=== PATIENT | female | born 1970 | race African-American/Black ===

== ENCOUNTER 2016-07-25 14:07 | Inpatient (IN) | payer MEDICAID ==
[2016-07-25] MEDS ORDERED: Sodium Chloride 0.9% 10 ML Syringe FLUSH PRN (14:35)
[2016-07-25] MEDS ORDERED: Sodium Chloride 0.9% 2.5 ML Syringe FLUSH PRN (14:35)
[2016-07-25] MEDS ORDERED: Sodium Chloride 0.9% 1,000 ML IV ONE ×3 (14:38→18:46)
[2016-07-25] MEDS ORDERED: Ondansetron 4 MG/2 ML SDV IVPUSH ONE ×2 (14:38→17:05)
--- NOTE | 2016-07-25 14:47 | EDM.PDOC ---
ED HPI GENERAL MEDICAL PROBLEM - General Chief Complaint: Abdominal Pain Stated Complaint: ABDOMINAL PAIN Time Seen by Provider: 07/25/16 14:27 - History of Present Illness INITIAL COMMENTS - FREE TEXT/NARRATIVE: HISTORY AND PHYSICAL: History of present illness: The patient is a 45-year-old female with a known history of PTSD and a "nerve disorder" as well as anxiety but no cardiac or abdominal history that we are aware of and to also has a history of a developmental disability and presents with complaints of upper abdominal pain more on the left associated with nausea and vomiting that started yesterday and worsened today. The patient denies any chest pain or shortness of breath and feels very anxious as a result of the pain and the vomiting. She also states she has had a number of loose watery stools yesterday and today. She has not taken any [id number] medications. According to the history from family, an aunt who knows her very well via telephone, she's been off all of her home medications since December as she does not have insurance. She has not seen a provider since before December. The history is very sketchy and difficult to obtain as the patient is not the best historian nor other family members. She has not had any syncope but has felt lightheaded and is currently feeling very sweaty and nauseated. She has no limb pain no flank pain or back pain. Review of systems: As per history of present illness and below otherwise all systems reviewed and negative. Past medical history: As per history of present illness and as reviewed below otherwise noncontributory. Surgical history: As per history of present illness and as reviewed below otherwise noncontributory. Social history: No reported history of drug or alcohol abuse. Family history: As per history of present illness and as reviewed below otherwise noncontributory. Physical exam: Gen.: Well-developed well-nourished female who is speaking clearly and is visibly diaphoretic and cool to touch. Her vital signs of the note by me including a bradycardia of 40. HEENT: Atraumatic, normocephalic, pupils reactive, negative for conjunctival pallor or scleral icterus, mucous membranes tacky, throat clear, neck supple, nontender, trachea midline. Lungs: Clear to auscultation slightly diminished on the left side but no work of breathing or accessory muscle use, breath sounds equal bilaterally, chest nontender. Heart: S1S2, regular rhythm but bradycardic rate and heart sounds are very distant, no overt murmurs Abdomen: Soft, nondistended, tender in the left upper abdomen and epigastric area without rebound or guarding and bowel sounds are hypoactive. Negative for masses or hepatosplenomegaly. Negative for costovertebral tenderness. Pelvis: Stable nontender. Genitourinary: Deferred. Rectal: Deferred. Extremities: Atraumatic, negative for cords or calf pain. Neurovascular unremarkable. Neuro: Awake, alert, oriented. Cranial nerves II through XII unremarkable. Cerebellum unremarkable. Motor and sensory unremarkable throughout. Exam nonfocal. Diagnostics: EKG CBC CMP amylase lipase lactic acid troponin hCG UA chest x-ray CT scan of the abdomen and pelvis Therapeutics: IV O2 monitor IV fluids Zofran 1438: Once EKG was obtained consultation to Dr. woody factory superintendent is made and is currently at bedside at 1345 evaluating the patient. Pacer pads and placed and I will discuss with him medication for her abdominal pain and other testing further than what I have ordered above. 1450: Dr Moise was at bedside and gave a small dose of atropine and responded and is up in the 90s currently. He feels this is most likely a vagal response but he would like observation admission for this problem as I workup the abdominal pain and vomiting. He will do a formal consult for the chart 1515: Patient's current pulse is 104 blood pressure is 136/94 and she continues to have abdominal pain but is resting more comfortably. I will prescribe pain medication, morphine Please note that the patient is on her menstrual cycle which would explain the blood in her urine. Patient also tells noticing that her abdominal pain is much improved and she did not receive the morphine we will plan for admission I will discuss the case with the hospitalist 1658: Case was discussed with the hospitalist Dr. Suggs who accepts the patient for admission. The patient is also aware of testing results she still feels some nausea so I will repeat Zofran and IV fluids. We will plan on observation admission in ICU per Dr. Moise's recommendation for the bradycardia Critical care time excluding procedures: 31min Impression: Left upper abdominal pain with vomiting and diarrhea improved etiology unclear, bradycardia likely secondary to vagal response Definitive disposition and diagnosis as appropriate pending reevaluation and review of above. Left Abdomen Pain Score (Numeric/FACES): 10 - Related Data Allergies Allergy/AdvReac Type Severity Reaction Status Date / Time No Known Allergies Allergy Verified 07/25/16 15:03 Home Meds: Home Meds ARIPiprazole [Abilify] 07/25/16 [History] Albuterol/Ipratropium [DuoNeb 3.0-0.5 MG/3 ML] 07/25/16 [History] buPROPion [Wellbutrin] 07/25/16 [History] ED ROS GENERAL - Review of Systems Review Of Systems: ROS reveals no pertinent complaints other than HPI. ED EXAM, GENERAL - Physical Exam Exam: See Below (See dictation) Course - Vital Signs Last Recorded V/S: Last Vital Signs Temp 35.5 C 07/25/16 15:16 Pulse 95 07/25/16 15:16 Resp 22 H 07/25/16 15:16 BP 136/94 H 07/25/16 15:16 Pulse Ox 100 07/25/16 15:16 - Orders/Labs/Meds Orders: Active Orders 24 hr Category Date Time Status Patient Status [ADT] Stat ADT 07/25/16 17:02 Ordered Cardiac Monitoring [RC] . DIRECTED Care 07/25/16 14:34 Active Communication Order [RC] STAT Care 07/25/16 14:42 Active EKG Documentation Completion [RC] STAT Care 07/25/16 14:34 Active EKG Documentation Completion [RC] STAT Care 07/25/16 14:54 Active Notify Provider Consults [RC] ASDIRECTED Care 07/25/16 14:42 Active Oxygen Therapy, ED [RC] ASDIRECTED Care 07/25/16 14:34 Active Pulse Oximetry [RC] ASDIRECTED Care 07/25/16 14:34 Active Consult to Physician [CONS] Stat Cons 07/25/16 14:42 Active Dextrose 5%-Normal Saline @ 125 MLS/HR(1000ml) Med 07/25/16 17:15 Ordered Dextrose 5%-0.9% NaCl [Dextrose 5%-Normal Saline] 1,000 ml IV ASDIRECTED Sodium Chloride 0.9% [Normal Saline] 1,000 ml Med 07/25/16 17:00 Ordered IV STAT Sodium Chloride 0.9% [Saline Flush] Med 07/25/16 14:35 Active 10 ml FLUSH ASDIRECTED PRN Sodium Chloride 0.9% [Saline Flush] Med 07/25/16 14:35 Active 2.5 ml FLUSH ASDIRECTED PRN Saline Lock Insert [OM.PC] Stat Oth 07/25/16 14:34 Ordered Medication Orders Sodium Chloride (Normal Saline) 1,000 mls @ 999 mls/hr IV STAT ONE Stop: 07/25/16 18:00 Dextrose/Sodium Chloride (Dextrose 5%-Normal Saline) 1,000 mls @ 125 mls/hr IV ASDIRECTED REGLA Sodium Chloride (Saline Flush) 10 ml FLUSH ASDIRECTED PRN PRN Reason: Keep Vein Open Sodium Chloride (Saline Flush) 2.5 ml FLUSH ASDIRECTED PRN PRN Reason: Keep Vein Open Labs: Laboratory Tests 07/25/16 07/25/16 07/25/16 Range/Units 14:47 14:47 14:47 WBC 10.22 (4.0-11.0) K/uL RBC 4.51 (4.30-5.90) M/uL Hgb 13.1 (12.0-16.0) g/dL Hct 38.8 (36.0-46.0) % MCV 86.0 (80.0-98.0) fL MCH 29.0 (27.0-32.0) pg MCHC 33.8 (31.0-37.0) g/dL RDW Std Deviation 43.6 (28.0-62.0) fl RDW Coeff of Maddison 14 (11.0-15.0) % Plt Count 277 (150-400) K/uL MPV 9.60 (7.40-12.00) fL Neut % (Auto) 59.9 (48.0-80.0) % Lymph % (Auto) 29.5 (16.0-40.0) % Laurens % (Auto) 8.9 (0.0-15.0) % Eos % (Auto) 1.1 (0.0-7.0) % Baso % (Auto) 0.6 (0.0-1.5) % Neut # (Auto) 6.1 H (1.4-5.7) K/uL Lymph # (Auto) 3.0 H (0.6-2.4) K/uL Laurens # (Auto) 0.9 H (0.0-0.8) K/uL Eos # (Auto) 0.1 (0.0-0.7) K/uL Baso # (Auto) 0.1 (0.0-0.1) K/uL Nucleated RBC % 0.0 /100WBC Nucleated RBCs # 0 K/uL Lactate 4.0 H (0.20-2.00) mmol/L Sodium 139 (136-146) mmol/L Potassium 3.6 (3.5-5.1) mmol/L Chloride 108 (98-110) mmol/L Carbon Dioxide 16 L (21-31) mmol/L BUN 16 (6.0-23.0) mg/dL Creatinine 1.0 (0.6-1.5) mg/dL Est Cr Clr Drug Dosing TNP Estimated GFR (MDRD) > 60.0 ml/min Glucose 130 H (60-110) mg/dL POC Glucose (60-110) mg/dL Calcium 9.2 (8.8-10.8) mg/dL Total Bilirubin 0.4 (0.1-1.5) mg/dL AST 23 (5-40) IU/L ALT 17 (8-54) IU/L Alkaline Phosphatase 62 (40-150) Troponin I (0.0-0.29) NG/ML Total Protein 7.4 (6.0-8.0) g/dL Albumin 4.1 (3.5-5.0) g/dL Globulin 3.3 (2.0-3.5) g/dL Albumin/Globulin Ratio 1.2 L (1.3-2.8) Amylase 64 (10-90) U/L Lipase 14 (7-80) U/L HCG, Qual (NEG) Urine Color Urine Appearance Urine pH (5.0-8.0) Ur Specific Walker (1.001-1.035) Urine Protein (NEGATIVE) mg/dL Urine Glucose (UA) (NEGATIVE) mg/dL Urine Ketones (NEGATIVE) mg/dL Urine Occult Blood (NEGATIVE) Urine Nitrite (NEGATIVE) Urine Bilirubin (NEGATIVE) Urine Urobilinogen (<2.0) EU/dL Ur Leukocyte Esterase (NEGATIVE) Urine RBC (0-2/HPF) Urine WBC (0-5/HPF) Ur Epithelial Cells (NONE-FEW) Amorphous Sediment (NEGATIVE) Urine Bacteria (NEGATIVE) 07/25/16 07/25/16 07/25/16 Range/Units 14:47 14:47 15:44 WBC (4.0-11.0) K/uL RBC (4.30-5.90) M/uL Hgb (12.0-16.0) g/dL Hct (36.0-46.0) % MCV (80.0-98.0) fL MCH (27.0-32.0) pg MCHC (31.0-37.0) g/dL RDW Std Deviation (28.0-62.0) fl RDW Coeff of Maddison (11.0-15.0) % Plt Count (150-400) K/uL MPV (7.40-12.00) fL Neut % (Auto) (48.0-80.0) % Lymph % (Auto) (16.0-40.0) % Laurens % (Auto) (0.0-15.0) % Eos % (Auto) (0.0-7.0) % Baso % (Auto) (0.0-1.5) % Neut # (Auto) (1.4-5.7) K/uL Lymph # (Auto) (0.6-2.4) K/uL Laurens # (Auto) (0.0-0.8) K/uL Eos # (Auto) (0.0-0.7) K/uL Baso # (Auto) (0.0-0.1) K/uL Nucleated RBC % /100WBC Nucleated RBCs # K/uL Lactate (0.20-2.00) mmol/L Sodium (136-146) mmol/L Potassium (3.5-5.1) mmol/L Chloride (98-110) mmol/L Carbon Dioxide (21-31) mmol/L BUN (6.0-23.0) mg/dL Creatinine (0.6-1.5) mg/dL Est Cr Clr Drug Dosing Estimated GFR (MDRD) ml/min Glucose (60-110) mg/dL POC Glucose (60-110) mg/dL Calcium (8.8-10.8) mg/dL Total Bilirubin (0.1-1.5) mg/dL AST (5-40) IU/L ALT (8-54) IU/L Alkaline Phosphatase (40-150) Troponin I < 0.10 (0.0-0.29) NG/ML Total Protein (6.0-8.0) g/dL Albumin (3.5-5.0) g/dL Globulin (2.0-3.5) g/dL Albumin/Globulin Ratio (1.3-2.8) Amylase (10-90) U/L Lipase (7-80) U/L HCG, Qual NEGATIVE (NEG) Urine Color YELLOW Urine Appearance SLT CLOUDY Urine pH 7.0 (5.0-8.0) Ur Specific Walker 1.010 (1.001-1.035) Urine Protein NEGATIVE (NEGATIVE) mg/dL Urine Glucose (UA) NEGATIVE (NEGATIVE) mg/dL Urine Ketones 15 H (NEGATIVE) mg/dL Urine Occult Blood LARGE H (NEGATIVE) Urine Nitrite NEGATIVE (NEGATIVE) Urine Bilirubin NEGATIVE (NEGATIVE) Urine Urobilinogen 0.2 (<2.0) EU/dL Ur Leukocyte Esterase NEGATIVE (NEGATIVE) Urine RBC 25-30 (0-2/HPF) Urine WBC 0-1 (0-5/HPF) Ur Epithelial Cells RARE (NONE-FEW) Amorphous Sediment RARE (NEGATIVE) Urine Bacteria RARE (NEGATIVE) 07/25/ Range/Units 15:53 WBC (4.0-11.0) K/uL RBC (4.30-5.90) M/uL Hgb (12.0-16.0) g/dL Hct (36.0-46.0) % MCV (80.0-98.0) fL MCH (27.0-32.0) pg MCHC (31.0-37.0) g/dL RDW Std Deviation (28.0-62.0) fl RDW Coeff of Maddison (11.0-15.0) % Plt Count (150-400) K/uL MPV (7.40-12.00) fL Neut % (Auto) (48.0-80.0) % Lymph % (Auto) (16.0-40.0) % Laurens % (Auto) (0.0-15.0) % Eos % (Auto) (0.0-7.0) % Baso % (Auto) (0.0-1.5) % Neut # (Auto) (1.4-5.7) K/uL Lymph # (Auto) (0.6-2.4) K/uL Laurens # (Auto) (0.0-0.8) K/uL Eos # (Auto) (0.0-0.7) K/uL Baso # (Auto) (0.0-0.1) K/uL Nucleated RBC % /100WBC Nucleated RBCs # K/uL Lactate (0.20-2.00) mmol/L Sodium (136-146) mmol/L Potassium (3.5-5.1) mmol/L Chloride (98-110) mmol/L Carbon Dioxide (21-31) mmol/L BUN (6.0-23.0) mg/dL Creatinine (0.6-1.5) mg/dL Est Cr Clr Drug Dosing Estimated GFR (MDRD) ml/min Glucose (60-110) mg/dL POC Glucose 105 (60-110) mg/dL Calcium (8.8-10.8) mg/dL Total Bilirubin (0.1-1.5) mg/dL AST (5-40) IU/L ALT (8-54) IU/L Alkaline Phosphatase (40-150) Troponin I (0.0-0.29) NG/ML Total Protein (6.0-8.0) g/dL Albumin (3.5-5.0) g/dL Globulin (2.0-3.5) g/dL Albumin/Globulin Ratio (1.3-2.8) Amylase (10-90) U/L Lipase (7-80) U/L HCG, Qual (NEG) Urine Color Urine Appearance Urine pH (5.0-8.0) Ur Specific Walker (1.001-1.035) Urine Protein (NEGATIVE) mg/dL Urine Glucose (UA) (NEGATIVE) mg/dL Urine Ketones (NEGATIVE) mg/dL Urine Occult Blood (NEGATIVE) Urine Nitrite (NEGATIVE) Urine Bilirubin (NEGATIVE) Urine Urobilinogen (<2.0) EU/dL Ur Leukocyte Esterase (NEGATIVE) Urine RBC (0-2/HPF) Urine WBC (0-5/HPF) Ur Epithelial Cells (NONE-FEW) Amorphous Sediment (NEGATIVE) Urine Bacteria (NEGATIVE) Meds: Medications Generic Name Dose Route Start Last Admin Trade Name Freq PRN Reason Stop Dose Admin Sodium Chloride 1,000 mls @ 999 mls/hr 06/14/17 17:00 Normal Saline IV 07/25/16 18:00 STAT ONE Dextrose/Sodium Chloride 1,000 mls @ 125 mls/hr 07/25/16 17:15 Dextrose 5%-Normal Saline IV ASDIRECTED REGLA Sodium Chloride 10 ml 07/25/16 14:35 Saline Flush FLUSH ASDIRECTED PRN Keep Vein Open Sodium Chloride 2.5 ml 07/25/16 14:35 Saline Flush FLUSH ASDIRECTED PRN Keep Vein Open Discontinued Medications Generic Name Dose Route Start Last Admin Trade Name Freq PRN Reason Stop Dose Admin Atropine Sulfate 0.5 mg 07/25/16 14:52 07/25/16 14:52 Atropine 0.1 Mg/Ml IVPUSH 07/25/16 14:53 0.5 mg ONETIME ONE Administration Sodium Chloride 1,000 mls @ 999 mls/hr 07/25/16 14:38 07/25/16 14:38 Normal Saline IV 07/25/16 15:38 999 mls/hr STAT ONE Administration Iopamidol 100 ml 07/25/16 15:43 07/25/16 15:44 Isovue Multipack-370 (76%) IVPUSH 07/25/16 15:44 100 ml ONETIME STA Administration Morphine Sulfate 2 mg 07/25/16 15:20 Morphine IVPUSH 07/25/16 15:21 ONETIME ONE Ondansetron HCl 4 mg 07/25/16 14:38 07/25/16 14:38 Zofran IVPUSH 07/25/16 14:39 4 mg ONETIME ONE Administration Departure - Departure Time of Disposition: 17:04 Disposition: Refer to Observation Condition: Fair Clinical Impression: Bradycardia Vomiting Qualifiers: Vomiting type: unspecified Vomiting Intractability: non-intractable Nausea presence: with nausea Qualified Code(s): R11.2 - Nausea with vomiting, unspecified Abdominal pain Qualifiers: Abdominal location: left upper quadrant Qualified Code(s): R10.12 - Left upper quadrant pain - Discharge Information Forms: ED Department Discharge - My Orders Last 24 Hours: My Active Orders 07/25/16 14:34 Cardiac Monitoring [RC] . DIRECTED EKG Documentation Completion [RC] STAT Oxygen Therapy, ED [RC] ASDIRECTED Pulse Oximetry [RC] ASDIRECTED Saline Lock Insert [OM.PC] Stat 07/25/16 14:35 Sodium Chloride 0.9% [Saline Flush] 10 ml FLUSH ASDIRECTED PRN Sodium Chloride 0.9% [Saline Flush] 2.5 ml FLUSH ASDIRECTED PRN 07/25/16 14:42 Communication Order [RC] STAT Notify Provider Consults [RC] ASDIRECTED Consult to Physician [CONS] Stat 07/25/16 17:00 Sodium Chloride 0.9% [Normal Saline] 1,000 ml IV STAT 07/25/16 17:02 Patient Status [ADT] Stat 07/25/16 17:15 Dextrose 5%-Normal Saline @ 125 MLS/HR(1000ml) Dextrose 5%-0.9% NaCl [Dextrose 5 %-Normal Saline] 1,000 ml IV ASDIRECTED - Assessment/Plan Last 24 Hours: My Active Orders 07/25/16 14:34 Cardiac Monitoring [RC] . DIRECTED EKG Documentation Completion [RC] STAT Oxygen Therapy, ED [RC] ASDIRECTED Pulse Oximetry [RC] ASDIRECTED Saline Lock Insert [OM.PC] Stat 07/25/16 14:35 Sodium Chloride 0.9% [Saline Flush] 10 ml FLUSH ASDIRECTED PRN Sodium Chloride 0.9% [Saline Flush] 2.5 ml FLUSH ASDIRECTED PRN 07/25/16 14:42 Communication Order [RC] STAT Notify Provider Consults [RC] ASDIRECTED Consult to Physician [CONS] Stat 07/25/16 17:00 Sodium Chloride 0.9% [Normal Saline] 1,000 ml IV STAT 07/25/16 17:02 Patient Status [ADT] Stat 07/25/16 17:15 Dextrose 5%-Normal Saline @ 125 MLS/HR(1000ml) Dextrose 5%-0.9% NaCl [Dextrose 5 %-Normal Saline] 1,000 ml IV ASDIRECTED
[2016-07-25] MEDS ORDERED: Atropine 0.1 MG/ML 10 ML Syringe IVPUSH ONE (14:52)
[2016-07-25 15:20] LABS: CHLORIDE,CL 108 mmol/L (98-110); SODIUM,NA 139 mmol/L (136-146)
[2016-07-25] MEDS ORDERED: Morphine 2 MG/ML Syringe IVPUSH ONE (15:20)
--- NOTE | 2016-07-25 15:39 | CR ---
EXAMINATION: Portable chest radiograph. HISTORY: Shortness of breath. FINDINGS: The trachea is midline. The cardiomediastinal silhouette is within normal limits. No pulmonary infil trates, effusions or pneumothorax. Osseous structures appear unremarkable. IMPRESSION: No acute cardiopulmonary process.
--- NOTE | 2016-07-25 15:40 | CR ---
EXAMINATION: Abdomen HISTORY: Rule out free air COMPARISON: None TECHNIQUE: Upright AP views of the upper abdomen FINDINGS/IMPRESSION: There is no free air under the diaphragm. The lung bases are clear. The visuali zed osseous structures appear normal.
[2016-07-25] MEDS ORDERED: Iopamidol 755 MG/ML 500 ML Multipack Bottle IVPUSH STA (15:43)
--- NOTE | 2016-07-25 16:28 | CT ---
CT of the abdomen and pelvis with contrast. HISTORY: Pain TECHNIQUE: Axial CT images were obtained of the abdomen and pelvis following administration of Isovu e-370 without complication. Coronal and sagittal reconstructions obtained. FINDINGS: The lung bases are clear, no pleural effusion. The liver, spleen, adrenal glands, and pancreas appea r unremarkable. The gallbladder is normal. No bulky retroperitoneal lymphadenopathy or abdominal asc ites. The kidneys enhance and function symmetrically without evidence of obstructive uropathy. Visualized large and small bowel are normal in caliber without evidence of obstruction. The appendix appears normal. There is a trace free pelvic fluid. The urinary bladder appears normal. No bulky pe lvic lymphadenopathy. No suspicious osseous abnormalities identified. IMPRESSION: 1. No acute findings demonstrated within the abdomen or pelvis. 2. Small amount of free pelvic fluid, likely physiologic.
[2016-07-25] MEDS ORDERED: Dextrose 5%-0.9% NaCl 1,000 ML IV SCH (17:15)
[2016-07-25] MEDS ORDERED: Morphine 10 MG/ML Syringe IVPUSH PRN (17:52)
--- NOTE | 2016-07-25 17:57 | PCM.HP ---
H&P History of Present Illness - General Date of Service: 07/25/16 Admit Problem/Dx: Admission Diagnosis/Problem Admission Diagnosis/Problem Vomiting - History of Present Illness Initial Comments - Free Text/Narative: 45 yo female with pmh of asthma and mood disorder who presented with one day history of abdominal pain. She reports left upper abdominal pain. She also has nausea, vomiting and lightheadedness. She reports diarrhea that started yesterday. In the ED she was noted to be bradychardic with HR in the 40s she was given atropine with response of heart rate to 90s. Dr. Thibodeaux was consulted in the ED. Left Abdomen Pain Score (Numeric/FACES): 10 - Related Data Allergies/Adverse Reactions: Allergies Allergy/AdvReac Type Severity Reaction Status Date / Time No Known Allergies Allergy Verified 07/25/16 15:03 Home Medications: Home Meds ARIPiprazole [Abilify] 07/25/16 [History] Albuterol/Ipratropium [DuoNeb 3.0-0.5 MG/3 ML] 07/25/16 [History] buPROPion [Wellbutrin] 07/25/16 [History] Past Medical History Respiratory History: Reports: Asthma Neurological History: Reports: Alzheimers Disease, Other (See Below) Other Neuro History: son states "jerking" all her life, also questionable Alzheimers Psychiatric History: Reports: Anxiety, Depression, Emotional Problems, Mood Swings, PTSD Other Psychiatric History: On meds, has not taken them for about 8 months Social & Family History - Family History Family Medical History: Unobtainable - Tobacco Use Smoking Status *Q: Current Some Day Smoker Years of Tobacco use: 5 Packs/Tins Daily: 0.1 - Recreational Drug Use Recreational Drug Use: No H&P Review of Systems - Review of Systems: Review Of Systems: See Below General: Reports: No Symptoms HEENT: Reports: No Symptoms Pulmonary: Reports: No Symptoms Cardiovascular: Reports: No Symptoms Gastrointestinal: Reports: No Symptoms Genitourinary: Reports: No Symptoms Musculoskeletal: Reports: No Symptoms Skin: Reports: No Symptoms Psychiatric: Reports: No Symptoms Neurological: Reports: No Symptoms Hematologic/Lymphatic: Reports: No Symptoms Immunologic: Reports: No Symptoms Exam - Exam Exam: See Below - Vital Signs Vital Signs: Last Vital Signs Temp 35.5 C 07/25/16 15:16 Pulse 44 L 07/25/16 17:20 Resp 22 H 07/25/16 17:20 BP 112/75 07/25/16 17:20 Pulse Ox 100 07/25/16 17:20 Weight: 70.307 kg - Exam General: Alert, Cooperative HEENT: Posterior Pharynx Clear Lungs: Clear to Auscultation, Normal Respiratory Effort Cardiovascular: Regular Rhythm, Bradycardia Abdomen: Normal Bowel Sounds, Soft. No: Organomegaly, Rebound, Tenderness Extremities: Normal Inspection Skin: Warm, Dry, Intact - Patient Data Lab Results Last 24 hrs: Laboratory Results - last 24 hr 07/25/16 07/25/16 07/25/16 Range/Units 14:47 14:47 14:47 WBC 10.22 (4.0-11.0) K/uL RBC 4.51 (4.30-5.90) M/uL Hgb 13.1 (12.0-16.0) g/dL Hct 38.8 (36.0-46.0) % MCV 86.0 (80.0-98.0) fL MCH 29.0 (27.0-32.0) pg MCHC 33.8 (31.0-37.0) g/dL RDW Std Deviation 43.6 (28.0-62.0) fl RDW Coeff of Maddison 14 (11.0-15.0) % Plt Count 277 (150-400) K/uL MPV 9.60 (7.40-12.00) fL Neut % (Auto) 59.9 (48.0-80.0) % Lymph % (Auto) 29.5 (16.0-40.0) % Apache % (Auto) 8.9 (0.0-15.0) % Eos % (Auto) 1.1 (0.0-7.0) % Baso % (Auto) 0.6 (0.0-1.5) % Neut # (Auto) 6.1 H (1.4-5.7) K/uL Lymph # (Auto) 3.0 H (0.6-2.4) K/uL Apache # (Auto) 0.9 H (0.0-0.8) K/uL Eos # (Auto) 0.1 (0.0-0.7) K/uL Baso # (Auto) 0.1 (0.0-0.1) K/uL Nucleated RBC % 0.0 /100WBC Nucleated RBCs # 0 K/uL Lactate 4.0 H (0.20-2.00) mmol/L Sodium 139 (136-146) mmol/L Potassium 3.6 (3.5-5.1) mmol/L Chloride 108 (98-110) mmol/L Carbon Dioxide 16 L (21-31) mmol/L BUN 16 (6.0-23.0) mg/dL Creatinine 1.0 (0.6-1.5) mg/dL Est Cr Clr Drug Dosing TNP Estimated GFR (MDRD) > 60.0 ml/min Glucose 130 H (60-110) mg/dL POC Glucose (60-110) mg/dL Calcium 9.2 (8.8-10.8) mg/dL Total Bilirubin 0.4 (0.1-1.5) mg/dL AST 23 (5-40) IU/L ALT 17 (8-54) IU/L Alkaline Phosphatase 62 (40-150) Troponin I (0.0-0.29) NG/ML Total Protein 7.4 (6.0-8.0) g/dL Albumin 4.1 (3.5-5.0) g/dL Globulin 3.3 (2.0-3.5) g/dL Albumin/Globulin Ratio 1.2 L (1.3-2.8) Amylase 64 (10-90) U/L Lipase 14 (7-80) U/L HCG, Qual (NEG) Urine Color Urine Appearance Urine pH (5.0-8.0) Ur Specific Johnston (1.001-1.035) Urine Protein (NEGATIVE) mg/dL Urine Glucose (UA) (NEGATIVE) mg/dL Urine Ketones (NEGATIVE) mg/dL Urine Occult Blood (NEGATIVE) Urine Nitrite (NEGATIVE) Urine Bilirubin (NEGATIVE) Urine Urobilinogen (<2.0) EU/dL Ur Leukocyte Esterase (NEGATIVE) Urine RBC (0-2/HPF) Urine WBC (0-5/HPF) Ur Epithelial Cells (NONE-FEW) Amorphous Sediment (NEGATIVE) Urine Bacteria (NEGATIVE) 07/25/16 07/25/16 07/25/16 Range/Units 14:47 14:47 15:44 WBC (4.0-11.0) K/uL RBC (4.30-5.90) M/uL Hgb (12.0-16.0) g/dL Hct (36.0-46.0) % MCV (80.0-98.0) fL MCH (27.0-32.0) pg MCHC (31.0-37.0) g/dL RDW Std Deviation (28.0-62.0) fl RDW Coeff of Maddison (11.0-15.0) % Plt Count (150-400) K/uL MPV (7.40-12.00) fL Neut % (Auto) (48.0-80.0) % Lymph % (Auto) (16.0-40.0) % Apache % (Auto) (0.0-15.0) % Eos % (Auto) (0.0-7.0) % Baso % (Auto) (0.0-1.5) % Neut # (Auto) (1.4-5.7) K/uL Lymph # (Auto) (0.6-2.4) K/uL Apache # (Auto) (0.0-0.8) K/uL Eos # (Auto) (0.0-0.7) K/uL Baso # (Auto) (0.0-0.1) K/uL Nucleated RBC % /100WBC Nucleated RBCs # K/uL Lactate (0.20-2.00) mmol/L Sodium (136-146) mmol/L Potassium (3.5-5.1) mmol/L Chloride (98-110) mmol/L Carbon Dioxide (21-31) mmol/L BUN (6.0-23.0) mg/dL Creatinine (0.6-1.5) mg/dL Est Cr Clr Drug Dosing Estimated GFR (MDRD) ml/min Glucose (60-110) mg/dL POC Glucose (60-110) mg/dL Calcium (8.8-10.8) mg/dL Total Bilirubin (0.1-1.5) mg/dL AST (5-40) IU/L ALT (8-54) IU/L Alkaline Phosphatase (40-150) Troponin I < 0.10 (0.0-0.29) NG/ML Total Protein (6.0-8.0) g/dL Albumin (3.5-5.0) g/dL Globulin (2.0-3.5) g/dL Albumin/Globulin Ratio (1.3-2.8) Amylase (10-90) U/L Lipase (7-80) U/L HCG, Qual NEGATIVE (NEG) Urine Color YELLOW Urine Appearance SLT CLOUDY Urine pH 7.0 (5.0-8.0) Ur Specific Johnston 1.010 (1.001-1.035) Urine Protein NEGATIVE (NEGATIVE) mg/dL Urine Glucose (UA) NEGATIVE (NEGATIVE) mg/dL Urine Ketones 15 H (NEGATIVE) mg/dL Urine Occult Blood LARGE H (NEGATIVE) Urine Nitrite NEGATIVE (NEGATIVE) Urine Bilirubin NEGATIVE (NEGATIVE) Urine Urobilinogen 0.2 (<2.0) EU/dL Ur Leukocyte Esterase NEGATIVE (NEGATIVE) Urine RBC 25-30 (0-2/HPF) Urine WBC 0-1 (0-5/HPF) Ur Epithelial Cells RARE (NONE-FEW) Amorphous Sediment RARE (NEGATIVE) Urine Bacteria RARE (NEGATIVE) 07/25/16 Range/Units 15:53 WBC (4.0-11.0) K/uL RBC (4.30-5.90) M/uL Hgb (12.0-16.0) g/dL Hct (36.0-46.0) % MCV (80.0-98.0) fL MCH (27.0-32.0) pg MCHC (31.0-37.0) g/dL RDW Std Deviation (28.0-62.0) fl RDW Coeff of Maddison (11.0-15.0) % Plt Count (150-400) K/uL MPV (7.40-12.00) fL Neut % (Auto) (48.0-80.0) % Lymph % (Auto) (16.0-40.0) % Apache % (Auto) (0.0-15.0) % Eos % (Auto) (0.0-7.0) % Baso % (Auto) (0.0-1.5) % Neut # (Auto) (1.4-5.7) K/uL Lymph # (Auto) (0.6-2.4) K/uL Apache # (Auto) (0.0-0.8) K/uL Eos # (Auto) (0.0-0.7) K/uL Baso # (Auto) (0.0-0.1) K/uL Nucleated RBC % /100WBC Nucleated RBCs # K/uL Lactate (0.20-2.00) mmol/L Sodium (136-146) mmol/L Potassium (3.5-5.1) mmol/L Chloride (98-110) mmol/L Carbon Dioxide (21-31) mmol/L BUN (6.0-23.0) mg/dL Creatinine (0.6-1.5) mg/dL Est Cr Clr Drug Dosing Estimated GFR (MDRD) ml/min Glucose (60-110) mg/dL POC Glucose 105 (60-110) mg/dL Calcium (8.8-10.8) mg/dL Total Bilirubin (0.1-1.5) mg/dL AST (5-40) IU/L ALT (8-54) IU/L Alkaline Phosphatase (40-150) Troponin I (0.0-0.29) NG/ML Total Protein (6.0-8.0) g/dL Albumin (3.5-5.0) g/dL Globulin (2.0-3.5) g/dL Albumin/Globulin Ratio (1.3-2.8) Amylase (10-90) U/L Lipase (7-80) U/L HCG, Qual (NEG) Urine Color Urine Appearance Urine pH (5.0-8.0) Ur Specific Johnston (1.001-1.035) Urine Protein (NEGATIVE) mg/dL Urine Glucose (UA) (NEGATIVE) mg/dL Urine Ketones (NEGATIVE) mg/dL Urine Occult Blood (NEGATIVE) Urine Nitrite (NEGATIVE) Urine Bilirubin (NEGATIVE) Urine Urobilinogen (<2.0) EU/dL Ur Leukocyte Esterase (NEGATIVE) Urine RBC (0-2/HPF) Urine WBC (0-5/HPF) Ur Epithelial Cells (NONE-FEW) Amorphous Sediment (NEGATIVE) Urine Bacteria (NEGATIVE) Result Diagrams: 07/26/16 01:44 07/26/16 01:44 *Q Meaningful Use (ADM) - VTE *Q VTE Criteria *Q: - Stroke *Q Stroke Criteria *Q: - AMI *Q AMI Criteria *Q: Problem List Initiated/Reviewed/Updated: Yes Orders Last 24hrs: Active Orders 24 hr Category Date Time Status Patient Status [ADT] Stat ADT 07/25/16 17:02 Active Cardiac Monitoring [RC] . DIRECTED Care 07/25/16 14:34 Active Communication Order [RC] STAT Care 07/25/16 14:42 Active EKG Documentation Completion [RC] STAT Care 07/25/16 14:34 Active EKG Documentation Completion [RC] STAT Care 07/25/16 14:54 Active Notify Provider Consults [RC] ASDIRECTED Care 07/25/16 14:42 Active Oxygen Therapy, ED [RC] ASDIRECTED Care 07/25/16 14:34 Active Pulse Oximetry [RC] ASDIRECTED Care 07/25/16 14:34 Active Consult to Physician [CONS] Stat Cons 07/25/16 14:42 Active BASIC METABOLIC PANEL,BMP [CHEM] AM Lab 07/26/16 05:11 Ordered BASIC METABOLIC PANEL,BMP [CHEM] AM Lab 07/27/16 05:11 Ordered CBC WITH AUTO DIFF [HEME] AM Lab 07/26/16 05:11 Ordered CBC WITH AUTO DIFF [HEME] AM Lab 07/27/16 05:11 Ordered LACTIC ACID,WHOLE BLOOD [BG] Q6H Lab 07/25/16 20:00 Ordered LACTIC ACID,WHOLE BLOOD [BG] Q6H Lab 07/26/16 02:00 Ordered LACTIC ACID,WHOLE BLOOD [BG] Q6H Lab 07/26/16 08:00 Ordered Dextrose 5%-0.9% NaCl [Dextrose 5%-Normal Saline] 1,000 Med 07/25/16 17:15 Active ml IV ASDIRECTED Sodium Chloride 0.9% [Normal Saline] 1,000 ml Med 07/25/16 17:00 Active IV STAT Sodium Chloride 0.9% [Saline Flush] Med 07/25/16 14:35 Active 10 ml FLUSH ASDIRECTED PRN Sodium Chloride 0.9% [Saline Flush] Med 07/25/16 14:35 Active 2.5 ml FLUSH ASDIRECTED PRN Saline Lock Insert [OM.PC] Stat Oth 07/25/16 14:34 Ordered Medication Orders Sodium Chloride (Normal Saline) 1,000 mls @ 999 mls/hr IV STAT ONE Stop: 07/25/16 18:00 Last Admin: 07/25/16 17:12 Dose: 999 mls/hr Dextrose/Sodium Chloride (Dextrose 5%-Normal Saline) 1,000 mls @ 125 mls/hr IV ASDIRECTED REGLA Sodium Chloride (Saline Flush) 10 ml FLUSH ASDIRECTED PRN PRN Reason: Keep Vein Open Sodium Chloride (Saline Flush) 2.5 ml FLUSH ASDIRECTED PRN PRN Reason: Keep Vein Open Assessment/Plan Comment:: 45 yo female who presents with abdominal pain, nausea and bradycardia. Suspect bradycardia may be due to vaso-vagal response from acute gastritis. Will continue IV fluids, monitor on telemetry and trend lactic acid. Will send stool studies.
[2016-07-25] MEDS ORDERED: Sodium Chloride 0.9% 1,000 ML IV SCH (19:00)
[2016-07-25] MEDS: Sodium Chloride 0.9% 1,000 ML IV SCH (20:07)
[2016-07-25] MEDS ORDERED: Pantoprazole 40 MG Vial IV SCH (21:00)
[2016-07-26 02:23] LABS: CHLORIDE,CL 111 mmol/L (98-110); SODIUM,NA 139 mmol/L (136-146)
[2016-07-26] MEDS: Sodium Chloride 0.9% 1,000 ML IV SCH ×3 (04:02→22:11)
[2016-07-26] MEDS ORDERED: Morphine 2 MG/ML Syringe IVPUSH PRN (07:17)
--- NOTE | 2016-07-26 08:44 | CONS ---
DATE OF CONSULTATION: 07/25/2016 DATE OF : 1970 PRIMARY CARE PHYSICIAN: None PCP REASON FOR CONSULTATION: Bradycardia. HISTORY OF PRESENT ILLNESS: This is a 45-year-old female with history of psychiatric problem, on psychiatric medication, just moved here from [place] since December. She has been in her usual state of health until today at 1:00 p.m., she started having abdominal pain on the right side. It was not radiating, and she also complained about nausea and vomiting. She seemed to be disabled. She lives alone, but she still needs some help to take care of her at home. Initial blood pressure was 155/80; however, with her heart rate in the range of 30s, the blood pressure were dropped to like 99/47. An EKG showed sinus bradycardia with a heart rate of 38, CT interval seemed to be normal at 177, and QRS duration seemed to be 146. I am not sure if this is really accurate. She was given 0.5 atropine 1 amp, and her heart rate has improved to 92 and per my reading, it still shows sinus rhythm. However, she may have some atrial abnormalities, that is why the P-wave does not look well defined. The workup for abdominal pain is still pending. However, there are some labs coming back including her CBC and lactate. Her troponin was negative. PAST MEDICAL HISTORY: Including nervous disorder, on psychiatric medication. She denies hypertension, diabetes, or dyslipidemia. SOCIAL HISTORY: She also denied smoking, drug use, or alcohol drinking. FAMILY HISTORY: She denies history of heart disease in her family. REVIEW OF SYSTEMS: Has been negative, except for indicated in the HPI. PHYSICAL EXAMINATION: VITAL SIGNS: Blood pressure is currently 99/47, heart rate is improving from 40 to 92, temperature is normal at 36.6, respiratory rate is 20, and O2 saturation 92 on room air. HEENT: Mouth: Dry, mildly pale, no jaundice. HEART: Normal S1, S2. Currently, normal rate and rhythm. No murmur. LUNGS: Clear. ABDOMEN: Moderately tender at the left side. Bowel sounds decreased. No hepatosplenomegaly. EXTREMITIES: Legs, no edema. INVESTIGATIONS: Abdominal pain workup is still pending. However, CBC showed WBC 10, hematocrit 38, hemoglobin 13, neutrophils 59%, and lactate is 4. Troponin is less than 1. EKG: Initial EKG showed sinus bradycardia; however, P-wave looks not well defined and also her heart rate was responding to atropine 0.5 to 92 beats per minute and to me it still looks like sinus rhythm; however, the P-wave is not well defined as well. ASSESSMENT AND PLAN: This is a 45-year-old female, who presented to the hospital with abdominal pain, nausea, vomiting, and has severe bradycardia with heart rate of 30s, responding to atropine. I have a high suspicion that her slow heart rate is most likely a vagal response from her abdominal issues and the other evidence I confirmed that the bradycardia seems to be a vagal response is her heart rate is responding to the atropine. I would observe her in the ICU for the heart rate, and I would also obtain echocardiogram for her as well. We can cycle cardiac enzymes to make sure there is no ACS, but I will have a low suspicion for ACS anyway. I will follow up when she is admitted in the hospital. FABY FOOTE /[id number]
[2016-07-26] MEDS: Pantoprazole 40 MG in Sodium Chloride 0.9% 10 ML IV SCH ×2 (09:58→20:43)
--- NOTE | 2016-07-26 13:40 | PCM.PN ---
- Review of Systems Systems Review Comment:: feeling better, abdominal pain resolved, nausea improving - Patient Data Vitals - most recent: Last Vital Signs Temp 36.4 C 07/26/16 10:00 Pulse 53 L 07/26/16 10:00 Resp 17 07/26/16 12:00 BP 99/67 07/26/16 12:00 Pulse Ox 100 07/26/16 12:00 Weight - most recent: 70.307 kg I&O - last 24 hours: Intake & Output 07/25/16 07/26/16 07/26/16 22:59 06:59 14:59 Intake Total 1000 1000 1010 Output Total 1650 Balance 1000 -650 1010 Lab Results last 24 hrs: Laboratory Results - last 24 hr 07/25/16 07/26/16 07/26/16 Range/Units 20:00 01:44 01:44 WBC 13.73 H (4.0-11.0) K/uL RBC 4.26 L (4.30-5.90) M/uL Hgb 12.1 (12.0-16.0) g/dL Hct 37.0 (36.0-46.0) % MCV 86.9 (80.0-98.0) fL MCH 28.4 (27.0-32.0) pg MCHC 32.7 (31.0-37.0) g/dL RDW Std Deviation 44.8 (28.0-62.0) fl RDW Coeff of Maddison 14 (11.0-15.0) % Plt Count 261 (150-400) K/uL MPV 9.70 (7.40-12.00) fL Neut % (Auto) 91.2 H (48.0-80.0) % Lymph % (Auto) 5.8 L (16.0-40.0) % Wise % (Auto) 2.9 (0.0-15.0) % Eos % (Auto) 0.0 (0.0-7.0) % Baso % (Auto) 0.1 (0.0-1.5) % Neut # (Auto) 12.5 H (1.4-5.7) K/uL Lymph # (Auto) 0.8 (0.6-2.4) K/uL Wise # (Auto) 0.4 (0.0-0.8) K/uL Eos # (Auto) 0.0 (0.0-0.7) K/uL Baso # (Auto) 0.0 (0.0-0.1) K/uL Nucleated RBC % 0.0 /100WBC Nucleated RBCs # 0 K/uL Lactate 2.6 H 2.2 H (0.20-2.00) mmol/L Sodium (136-146) mmol/L Potassium (3.5-5.1) mmol/L Chloride (98-110) mmol/L Carbon Dioxide (21-31) mmol/L BUN (6.0-23.0) mg/dL Creatinine (0.6-1.5) mg/dL Est Cr Clr Drug Dosing mL/min Estimated GFR (MDRD) ml/min Glucose (60-110) mg/dL Calcium (8.8-10.8) mg/dL Magnesium (1.5-2.3) mEq/L 07/26/16 07/26/16 07/26/16 Range/Units 01:44 08:04 08:04 WBC (4.0-11.0) K/uL RBC (4.30-5.90) M/uL Hgb (12.0-16.0) g/dL Hct (36.0-46.0) % MCV (80.0-98.0) fL MCH (27.0-32.0) pg MCHC (31.0-37.0) g/dL RDW Std Deviation (28.0-62.0) fl RDW Coeff of Maddison (11.0-15.0) % Plt Count (150-400) K/uL MPV (7.40-12.00) fL Neut % (Auto) (48.0-80.0) % Lymph % (Auto) (16.0-40.0) % Wise % (Auto) (0.0-15.0) % Eos % (Auto) (0.0-7.0) % Baso % (Auto) (0.0-1.5) % Neut # (Auto) (1.4-5.7) K/uL Lymph # (Auto) (0.6-2.4) K/uL Wise # (Auto) (0.0-0.8) K/uL Eos # (Auto) (0.0-0.7) K/uL Baso # (Auto) (0.0-0.1) K/uL Nucleated RBC % /100WBC Nucleated RBCs # K/uL Lactate 1.9 (0.20-2.00) mmol/L Sodium 139 (136-146) mmol/L Potassium 4.0 (3.5-5.1) mmol/L Chloride 111 H (98-110) mmol/L Carbon Dioxide 16 L (21-31) mmol/L BUN 9 (6.0-23.0) mg/dL Creatinine 0.8 (0.6-1.5) mg/dL Est Cr Clr Drug Dosing 74.23 mL/min Estimated GFR (MDRD) > 60.0 ml/min Glucose 119 H (60-110) mg/dL Calcium 7.7 L (8.8-10.8) mg/dL Magnesium 1.5 (1.5-2.3) mEq/L Med Orders - Current: Current Medications Sodium Chloride (Normal Saline) 1,000 mls @ 125 mls/hr IV ASDIRECTED REGLA Last Admin: 07/26/16 12:06 Dose: 125 mls/hr Pantoprazole Sodium 40 mg/ (Sodium Chloride) 10 mls @ 300 mls/hr IV Q12H [facility] Last Admin: 07/26/16 09:58 Dose: 300 mls/hr Morphine Sulfate (Morphine) 2 mg IVPUSH Q3H PRN PRN Reason: Pain (severe 7-10) Ondansetron HCl (Zofran) 4 mg IVPUSH Q4H PRN PRN Reason: Nausea Promethazine HCl (Phenergan) 25 mg IM Q6H PRN PRN Reason: Nausea Sodium Chloride (Saline Flush) 10 ml FLUSH ASDIRECTED PRN PRN Reason: Keep Vein Open Sodium Chloride (Saline Flush) 2.5 ml FLUSH ASDIRECTED PRN PRN Reason: Keep Vein Open Discontinued Medications Atropine Sulfate (Atropine 0.1 Mg/Ml) 0.5 mg IVPUSH ONETIME ONE Stop: 07/25/16 14:53 Last Admin: 07/25/16 14:52 Dose: 0.5 mg Sodium Chloride (Normal Saline) 1,000 mls @ 999 mls/hr IV STAT ONE Stop: 07/25/16 15:38 Last Admin: 07/25/16 14:38 Dose: 999 mls/hr Sodium Chloride (Normal Saline) 1,000 mls @ 999 mls/hr IV STAT ONE Stop: 07/25/16 18:00 Last Admin: 07/25/16 17:12 Dose: 999 mls/hr Dextrose/Sodium Chloride (Dextrose 5%-Normal Saline) 1,000 mls @ 125 mls/hr IV ASDIRECTED REGLA Sodium Chloride (Normal Saline) 1,000 mls @ 999 mls/hr IV .Bolus ONE Stop: 07/25/16 19:46 Last Admin: 07/25/16 18:50 Dose: 999 mls/hr Sodium Chloride (Normal Saline) 1,000 mls @ 999 mls/hr IV .BOLUS REGLA Iopamidol (Isovue Multipack-370 (76%)) 100 ml IVPUSH ONETIME STA Stop: 07/25/16 15:44 Last Admin: 07/25/16 15:44 Dose: 100 ml Morphine Sulfate (Morphine) 2 mg IVPUSH ONETIME ONE Stop: 07/25/16 15:21 Last Admin: 07/25/16 17:19 Dose: Not Given Morphine Sulfate (Morphine) 2 mg IVPUSH Q3H PRN PRN Reason: Pain (severe 7-10) Stop: 07/26/16 17:53 Ondansetron HCl (Zofran) 4 mg IVPUSH ONETIME ONE Stop: 07/25/16 14:39 Last Admin: 07/25/16 14:38 Dose: 4 mg Ondansetron HCl (Zofran) 4 mg IVPUSH ONETIME ONE Stop: 07/25/16 17:06 Last Admin: 07/25/16 17:14 Dose: 4 mg Pantoprazole Sodium (Protonix Iv) 40 mg IV Q12HR REGLA Last Admin: 07/25/16 20:56 Dose: 40 mg - Exam General: alert, oriented Lungs: Clear to auscultation, Normal respiratory effort Cardiovascular: Regular Rhythm, Bradycardia Abdomen: no tenderness, no distension Extremities: no edema Skin: warm, dry, intact Neurological: no new focal deficit - Problem List Review Problem List Initiated/Reviewed/Updated: Yes - My Orders Last 24 Hours: My Active Orders 07/25/16 17:52 Oxygen Therapy [RC] PRN Vital Signs [RC] Q1H Ondansetron [Zofran] 4 mg IVPUSH Q4H PRN Promethazine [Phenergan] 25 mg IM Q6H PRN Resuscitation Status Routine 07/25/16 17:53 Intake and Output [RC] Q12H Sequential Compression Device [OM.PC] Per Unit Routine 07/25/16 17:54 Antiembolic Devices [RC] Q4H 07/25/16 17:57 CULTURE STOOL + CAMPY+SHIGATOX [RM] Stat Clostridium Difficile [CDIFF TOX A+B] [OP] Stat 07/25/16 19:00 Sodium Chloride 0.9% [Normal Saline] 1,000 ml IV ASDIRECTED 07/26/16 07:17 Morphine 2 mg IVPUSH Q3H PRN 07/26/16 09:00 Pantoprazole [ProTONIX IV] 40 mg Sodium Chloride 0.9% [Normal Saline] 10 ml IV Q12H 07/26/16 Lunch Clear Liquid Diet [DIET] 07/27/16 05:11 BASIC METABOLIC PANEL,BMP [CHEM] AM CBC WITH AUTO DIFF [HEME] AM - Plan Plan:: 45 yo female who presents with abdominal pain, nausea and bradycardia. Lactic aciodis and abdominal pain have resolved. Will start clear liquid diet and continue monitoring on telemetry.
[2016-07-26] MEDS: Promethazine 25 MG/ML SDV IM PRN (16:28)
--- NOTE | 2016-07-26 17:00 | PCM.PN ---
- General Info Date of Service: 07/26/16 Admission Dx/Problem (Free Text): 45F hx psychiatric problem, with abdominal pain bradycadia Functional Status: Reports: pain controlled - Review of Systems General: Reports: No Symptoms HEENT: Reports: no symptoms Pulmonary: Reports: no symptoms Cardiovascular: Reports: No Symptoms Gastrointestinal: Reports: No symptoms - Patient Data Vitals - most recent: Last Vital Signs Temp 36.4 C 07/26/16 10:00 Pulse 53 L 07/26/16 10:00 Resp 21 H 07/26/16 15:00 BP 119/77 07/26/16 15:00 Pulse Ox 100 07/26/16 15:00 Weight - most recent: 70.307 kg I&O - last 24 hours: Intake & Output 07/26/16 07/26/16 07/26/16 06:59 14:59 22:59 Intake Total 1000 1010 Output Total 1650 Balance -650 1010 Lab Results last 24 hrs: Laboratory Results - last 24 hr 07/25/16 07/26/16 07/26/16 Range/Units 20:00 01:44 01:44 WBC 13.73 H (4.0-11.0) K/uL RBC 4.26 L (4.30-5.90) M/uL Hgb 12.1 (12.0-16.0) g/dL Hct 37.0 (36.0-46.0) % MCV 86.9 (80.0-98.0) fL MCH 28.4 (27.0-32.0) pg MCHC 32.7 (31.0-37.0) g/dL RDW Std Deviation 44.8 (28.0-62.0) fl RDW Coeff of Maddison 14 (11.0-15.0) % Plt Count 261 (150-400) K/uL MPV 9.70 (7.40-12.00) fL Neut % (Auto) 91.2 H (48.0-80.0) % Lymph % (Auto) 5.8 L (16.0-40.0) % Davidson % (Auto) 2.9 (0.0-15.0) % Eos % (Auto) 0.0 (0.0-7.0) % Baso % (Auto) 0.1 (0.0-1.5) % Neut # (Auto) 12.5 H (1.4-5.7) K/uL Lymph # (Auto) 0.8 (0.6-2.4) K/uL Davidson # (Auto) 0.4 (0.0-0.8) K/uL Eos # (Auto) 0.0 (0.0-0.7) K/uL Baso # (Auto) 0.0 (0.0-0.1) K/uL Nucleated RBC % 0.0 /100WBC Nucleated RBCs # 0 K/uL Lactate 2.6 H 2.2 H (0.20-2.00) mmol/L Sodium (136-146) mmol/L Potassium (3.5-5.1) mmol/L Chloride (98-110) mmol/L Carbon Dioxide (21-31) mmol/L BUN (6.0-23.0) mg/dL Creatinine (0.6-1.5) mg/dL Est Cr Clr Drug Dosing mL/min Estimated GFR (MDRD) ml/min Glucose (60-110) mg/dL Calcium (8.8-10.8) mg/dL Magnesium (1.5-2.3) mEq/L Troponin I (0.0-0.29) NG/ML 07/26/16 07/26/16 07/26/16 Range/Units 01:44 08:04 08:04 WBC (4.0-11.0) K/uL RBC (4.30-5.90) M/uL Hgb (12.0-16.0) g/dL Hct (36.0-46.0) % MCV (80.0-98.0) fL MCH (27.0-32.0) pg MCHC (31.0-37.0) g/dL RDW Std Deviation (28.0-62.0) fl RDW Coeff of Maddison (11.0-15.0) % Plt Count (150-400) K/uL MPV (7.40-12.00) fL Neut % (Auto) (48.0-80.0) % Lymph % (Auto) (16.0-40.0) % Davidson % (Auto) (0.0-15.0) % Eos % (Auto) (0.0-7.0) % Baso % (Auto) (0.0-1.5) % Neut # (Auto) (1.4-5.7) K/uL Lymph # (Auto) (0.6-2.4) K/uL Davidson # (Auto) (0.0-0.8) K/uL Eos # (Auto) (0.0-0.7) K/uL Baso # (Auto) (0.0-0.1) K/uL Nucleated RBC % /100WBC Nucleated RBCs # K/uL Lactate 1.9 (0.20-2.00) mmol/L Sodium 139 (136-146) mmol/L Potassium 4.0 (3.5-5.1) mmol/L Chloride 111 H (98-110) mmol/L Carbon Dioxide 16 L (21-31) mmol/L BUN 9 (6.0-23.0) mg/dL Creatinine 0.8 (0.6-1.5) mg/dL Est Cr Clr Drug Dosing 74.23 mL/min Estimated GFR (MDRD) > 60.0 ml/min Glucose 119 H (60-110) mg/dL Calcium 7.7 L (8.8-10.8) mg/dL Magnesium 1.5 (1.5-2.3) mEq/L Troponin I (0.0-0.29) NG/ML 07/26/16 Range/Units 14:04 WBC (4.0-11.0) K/uL RBC (4.30-5.90) M/uL Hgb (12.0-16.0) g/dL Hct (36.0-46.0) % MCV (80.0-98.0) fL MCH (27.0-32.0) pg MCHC (31.0-37.0) g/dL RDW Std Deviation (28.0-62.0) fl RDW Coeff of Maddison (11.0-15.0) % Plt Count (150-400) K/uL MPV (7.40-12.00) fL Neut % (Auto) (48.0-80.0) % Lymph % (Auto) (16.0-40.0) % Davidson % (Auto) (0.0-15.0) % Eos % (Auto) (0.0-7.0) % Baso % (Auto) (0.0-1.5) % Neut # (Auto) (1.4-5.7) K/uL Lymph # (Auto) (0.6-2.4) K/uL Davidson # (Auto) (0.0-0.8) K/uL Eos # (Auto) (0.0-0.7) K/uL Baso # (Auto) (0.0-0.1) K/uL Nucleated RBC % /100WBC Nucleated RBCs # K/uL Lactate (0.20-2.00) mmol/L Sodium (136-146) mmol/L Potassium (3.5-5.1) mmol/L Chloride (98-110) mmol/L Carbon Dioxide (21-31) mmol/L BUN (6.0-23.0) mg/dL Creatinine (0.6-1.5) mg/dL Est Cr Clr Drug Dosing mL/min Estimated GFR (MDRD) ml/min Glucose (60-110) mg/dL Calcium (8.8-10.8) mg/dL Magnesium (1.5-2.3) mEq/L Troponin I < 0.10 (0.0-0.29) NG/ML Med Orders - Current: Current Medications Sodium Chloride (Normal Saline) 1,000 mls @ 125 mls/hr IV ASDIRECTED REGLA Last Admin: 07/26/16 12:06 Dose: 125 mls/hr Pantoprazole Sodium 40 mg/ (Sodium Chloride) 10 mls @ 300 mls/hr IV Q12H REGLA Last Admin: 07/26/16 09:58 Dose: 300 mls/hr Morphine Sulfate (Morphine) 2 mg IVPUSH Q3H PRN PRN Reason: Pain (severe 7-10) Ondansetron HCl (Zofran) 4 mg IVPUSH Q4H PRN PRN Reason: Nausea Promethazine HCl (Phenergan) 25 mg IM Q6H PRN PRN Reason: Nausea Last Admin: 07/26/16 16:28 Dose: 25 mg Sodium Chloride (Saline Flush) 10 ml FLUSH ASDIRECTED PRN PRN Reason: Keep Vein Open Sodium Chloride (Saline Flush) 2.5 ml FLUSH ASDIRECTED PRN PRN Reason: Keep Vein Open Discontinued Medications Atropine Sulfate (Atropine 0.1 Mg/Ml) 0.5 mg IVPUSH ONETIME ONE Stop: 07/25/16 14:53 Last Admin: 07/25/16 14:52 Dose: 0.5 mg Sodium Chloride (Normal Saline) 1,000 mls @ 999 mls/hr IV STAT ONE Stop: 07/25/16 15:38 Last Admin: 07/25/16 14:38 Dose: 999 mls/hr Sodium Chloride (Normal Saline) 1,000 mls @ 999 mls/hr IV STAT ONE Stop: 07/25/16 18:00 Last Admin: 07/25/16 17:12 Dose: 999 mls/hr Dextrose/Sodium Chloride (Dextrose 5%-Normal Saline) 1,000 mls @ 125 mls/hr IV ASDIRECTED REGLA Sodium Chloride (Normal Saline) 1,000 mls @ 999 mls/hr IV .Bolus ONE Stop: 07/25/16 19:46 Last Admin: 07/25/16 18:50 Dose: 999 mls/hr Sodium Chloride (Normal Saline) 1,000 mls @ 999 mls/hr IV .BOLUS REGLA Iopamidol (Isovue Multipack-370 (76%)) 100 ml IVPUSH ONETIME STA Stop: 07/25/16 15:44 Last Admin: 07/25/16 15:44 Dose: 100 ml Morphine Sulfate (Morphine) 2 mg IVPUSH ONETIME ONE Stop: 07/25/16 15:21 Last Admin: 07/25/16 17:19 Dose: Not Given Morphine Sulfate (Morphine) 2 mg IVPUSH Q3H PRN PRN Reason: Pain (severe 7-10) Stop: 07/26/16 17:53 Ondansetron HCl (Zofran) 4 mg IVPUSH ONETIME ONE Stop: 07/25/16 14:39 Last Admin: 07/25/16 14:38 Dose: 4 mg Ondansetron HCl (Zofran) 4 mg IVPUSH ONETIME ONE Stop: 07/25/16 17:06 Last Admin: 07/25/16 17:14 Dose: 4 mg Pantoprazole Sodium (Protonix Iv) 40 mg IV Q12HR REGLA Last Admin: 07/25/16 20:56 Dose: 40 mg - Exam General: alert, oriented HEENT: Pupils equal, Pupils reactive Neck: supple Lungs: Clear to auscultation Cardiovascular: Regular Rate, Regular Rhythm, Bradycardia EKG INTERPRETATION Rhythm: NSR - Problem List Review Problem List Initiated/Reviewed/Updated: Yes - My Orders Last 24 Hours: My Active Orders 07/26/16 Echo Comp wo Cont [US] Routine 07/26/16 06:00 EKG 12 Lead [EKG Documentation Completion] [RC] ASDIRECTED - Plan Plan:: 45F with left upper quadrant abdominal pain, bradycardia. 1. bradycardia: now HR stays in 50s while resting, and HR improving to 70s when walking in the hallway. Echo prelim preserved EF 60% no significant valvular disease. If she is going to be discharged, I would do holter monitor 48 hours, and exercise treadmill test as outpatient 2. Abdominal pain: resolved, CT scan with contrast unremarkable.
[2016-07-27] MEDS: Ondansetron 4 MG/2 ML SDV IVPUSH PRN ×3 (00:35→16:37)
[2016-07-27 04:50] LABS: CHLORIDE,CL 107 mmol/L (98-110); SODIUM,NA 135 mmol/L (136-146)
[2016-07-27] MEDS: Sodium Chloride 0.9% 1,000 ML IV SCH ×2 (06:17→14:28)
[2016-07-27] MEDS: Pantoprazole 40 MG in Sodium Chloride 0.9% 10 ML IV SCH ×2 (08:58→20:55)
--- NOTE | 2016-07-27 13:49 | PCM.PN ---
- Review of Systems Systems Review Comment:: reports generalized weakness. and poor appetite. some nausea, denies any abdominal pain, denies any lightheadedness. - Patient Data Vitals - most recent: Last Vital Signs Temp 36.9 C 07/27/16 11:00 Pulse 53 L 07/26/16 10:00 Resp 21 H 07/27/16 13:00 BP 143/93 H 07/27/16 13:00 Pulse Ox 98 07/27/16 13:00 Weight - most recent: 63 kg I&O - last 24 hours: Intake & Output 07/26/16 07/27/16 07/27/16 22:59 06:59 14:59 Intake Total 1310 1250 Output Total 1400 900 Balance -90 350 Lab Results last 24 hrs: Laboratory Results - last 24 hr 07/26/16 07/27/16 07/27/16 Range/Units 14:04 04:04 04:04 WBC 14.07 H (4.0-11.0) K/uL RBC 4.10 L (4.30-5.90) M/uL Hgb 11.5 L (12.0-16.0) g/dL Hct 35.1 L (36.0-46.0) % MCV 85.6 (80.0-98.0) fL MCH 28.0 (27.0-32.0) pg MCHC 32.8 (31.0-37.0) g/dL RDW Std Deviation 43.5 (28.0-62.0) fl RDW Coeff of Maddison 14 (11.0-15.0) % Plt Count 242 (150-400) K/uL MPV 9.80 (7.40-12.00) fL Neut % (Auto) 79.7 (48.0-80.0) % Lymph % (Auto) 11.7 L (16.0-40.0) % Routt % (Auto) 8.5 (0.0-15.0) % Eos % (Auto) 0.0 (0.0-7.0) % Baso % (Auto) 0.1 (0.0-1.5) % Neut # (Auto) 11.2 H (1.4-5.7) K/uL Lymph # (Auto) 1.7 (0.6-2.4) K/uL [place]t # (Auto) 1.2 H (0.0-0.8) K/uL Eos # (Auto) 0.0 (0.0-0.7) K/uL Baso # (Auto) 0.0 (0.0-0.1) K/uL Nucleated RBC % 0.0 /100WBC Nucleated RBCs # 0 K/uL Sodium 135 L (136-146) mmol/L Potassium 3.5 (3.5-5.1) mmol/L Chloride 107 (98-110) mmol/L Carbon Dioxide 20 L (21-31) mmol/L BUN 7 (6.0-23.0) mg/dL Creatinine 0.8 (0.6-1.5) mg/dL Est Cr Clr Drug Dosing 74.21 mL/min Estimated GFR (MDRD) > 60.0 ml/min Glucose 101 (60-110) mg/dL Calcium 7.9 L (8.8-10.8) mg/dL Troponin I < 0.10 (0.0-0.29) NG/ML Med Orders - Current: Current Medications Sodium Chloride (Normal Saline) 1,000 mls @ 125 mls/hr IV ASDIRECTED REGLA Last Admin: 07/27/16 06:17 Dose: 125 mls/hr Pantoprazole Sodium 40 mg/ (Sodium Chloride) 10 mls @ 300 mls/hr IV Q12H REGLA Last Admin: 07/27/16 08:58 Dose: 300 mls/hr Levofloxacin/Dextrose 750 mg/ (Premix) 150 mls @ 100 mls/hr IV Q24H [facility] Morphine Sulfate (Morphine) 2 mg IVPUSH Q3H PRN PRN Reason: Pain (severe 7-10) Ondansetron HCl (Zofran) 4 mg IVPUSH Q4H PRN PRN Reason: Nausea Last Admin: 07/27/16 07:57 Dose: 4 mg Promethazine HCl (Phenergan) 25 mg IM Q6H PRN PRN Reason: Nausea Last Admin: 07/26/16 16:28 Dose: 25 mg Sodium Chloride (Saline Flush) 10 ml FLUSH ASDIRECTED PRN PRN Reason: Keep Vein Open Sodium Chloride (Saline Flush) 2.5 ml FLUSH ASDIRECTED PRN PRN Reason: Keep Vein Open Discontinued Medications Atropine Sulfate (Atropine 0.1 Mg/Ml) 0.5 mg IVPUSH ONETIME ONE Stop: 07/25/16 14:53 Last Admin: 07/25/16 14:52 Dose: 0.5 mg Sodium Chloride (Normal Saline) 1,000 mls @ 999 mls/hr IV STAT ONE Stop: 07/25/16 15:38 Last Admin: 07/25/16 14:38 Dose: 999 mls/hr Sodium Chloride (Normal Saline) 1,000 mls @ 999 mls/hr IV STAT ONE Stop: 07/25/16 18:00 Last Admin: 07/25/16 17:12 Dose: 999 mls/hr Dextrose/Sodium Chloride (Dextrose 5%-Normal Saline) 1,000 mls @ 125 mls/hr IV ASDIRECTED REGLA Sodium Chloride (Normal Saline) 1,000 mls @ 999 mls/hr IV .Bolus ONE Stop: 07/25/16 19:46 Last Admin: 07/25/16 18:50 Dose: 999 mls/hr Sodium Chloride (Normal Saline) 1,000 mls @ 999 mls/hr IV .BOLUS REGLA Iopamidol (Isovue Multipack-370 (76%)) 100 ml IVPUSH ONETIME STA Stop: 07/25/16 15:44 Last Admin: 07/25/16 15:44 Dose: 100 ml Morphine Sulfate (Morphine) 2 mg IVPUSH ONETIME ONE Stop: 07/25/16 15:21 Last Admin: 07/25/16 17:19 Dose: Not Given Morphine Sulfate (Morphine) 2 mg IVPUSH Q3H PRN PRN Reason: Pain (severe 7-10) Stop: 07/26/16 17:53 Ondansetron HCl (Zofran) 4 mg IVPUSH ONETIME ONE Stop: 07/25/16 14:39 Last Admin: 07/25/16 14:38 Dose: 4 mg Ondansetron HCl (Zofran) 4 mg IVPUSH ONETIME ONE Stop: 07/25/16 17:06 Last Admin: 07/25/16 17:14 Dose: 4 mg Pantoprazole Sodium (Protonix Iv) 40 mg IV Q12HR REGLA Last Admin: 07/25/16 20:56 Dose: 40 mg - Exam General: alert, oriented Neck: supple Lungs: Clear to auscultation, Normal respiratory effort Cardiovascular: Regular Rate, Regular Rhythm Abdomen: bowel sounds present, soft, no tenderness, no distension Back Exam: No: CVA Tenderness (L), CVA Tenderness (R) Extremities: no edema Skin: warm, dry, intact Neurological: no new focal deficit - Problem List Review Problem List Initiated/Reviewed/Updated: Yes - My Orders Last 24 Hours: My Active Orders 07/27/16 13:39 CULTURE BLOOD [BC] Stat CULTURE BLOOD [BC] Stat Blood Culture x2 Reflex Set [OM.PC] Stat 07/27/16 13:40 CULTURE URINE [RM] Routine 07/27/16 13:45 Levofloxacin/Dextrose 5%-Water [Levaquin in D5W 750 MG/150 ML] 750 mg Premix Bag 1 bag IV Q24H - Plan Plan:: 45F with left upper quadrant abdominal pain, bradycardia. 1. bradycardia: now HR stays in 50s while resting, and HR improving to 70s when walking in the hallway. Echo prelim preserved EF 60% no significant valvular disease. Dr. Thibodeaux consulted and recommended outpatient stress testing 2. Leukocytosis with nausea and generalized weakness: unexplained, patient does not appear toxic, CT scan of abdomen and CXR on admission are unremarkable, will repeat CXR, abdominal ultrasound and cultures. Will place on Levaquin empirically
[2016-07-27] MEDS: Levofloxacin/Dextrose 5%-Water 750 MG in Premix Bag 1 BAG IV SCH (14:30)
[2016-07-27] MEDS: Promethazine 25 MG/ML SDV IM PRN (17:45)
--- NOTE | 2016-07-27 18:33 | CR ---
EXAM DATE: 07/25/16 PATIENT'S AGE: 45 Patient: JENNIE GAMA Facility: [place], [place] Site . Site : 1970 Study: XRay Chest [id number]/16/2017 3:15:56 PM Ordering Physician: Ifeanyi De Guzman Final Report: INDICATION: Leukocytosis INDICATION: Leukocytosis. TECHNIQUE: Chest 1 view. COMPARISON: None FINDINGS: Cardiovascular and mediastinum: Heart size and vasculature are normal in caliber and appearance. Mediastinum is within normal limits. Lungs and pleural space: Lungs are clear. No sign of infiltrate or mass. No sign of pleural effusion. No pneumothorax. Bones and soft tissues: Defibrillator or monitor pads are seen overlying the patient. IMPRESSION: Lungs are clear. Dictated by Umesh Thompson MD @ 07/27/2016 3:28:32 PM Dictated by: Umesh Thompson MD @ 07/27/2016 15:28:37 (Electronic Signature) Report Signed by Proxy. ST[facility] SOUTHAMPTON HOSPITALJose Maria
[2016-07-28] MEDS: Sodium Chloride 0.9% 1,000 ML IV SCH ×2 (01:07→10:08)
[2016-07-28] MEDS: Pantoprazole 40 MG in Sodium Chloride 0.9% 10 ML IV SCH (09:24)
[2016-07-28 11:02] LABS: CHLORIDE,CL 101 mmol/L (98-110); SODIUM,NA 132 mmol/L (136-146)
--- NOTE | 2016-07-28 13:06 | PCM.DCSUM1 ---
Discharge Summary - Discharge Data Discharge Date: 07/28/16 Discharge Disposition: Home, Self-Care 01 Condition: Good - Patient Summary/Data Hospital Course: 45 yo female with pmh of asthma and mood disorder who presented with one day history of abdominal pain. She reports left upper abdominal pain, nausea, vomiting, diarrhea and lightheadedness. In the ED she was noted to be bradychardic with HR in the 40s she was given atropine with response of heart rate to 90s. Dr. Thibodeaux was consulted in the ED. She was noted to have a lactic acid of 4.0 and bicarb of 16. CBC and CMP were otherwise normal. She was admitted for gastroenteritis and dehydration. She was treated with IV fluids with normalization of lactic acid. Her WBC did rise to 14,000. CT scan on abdomen, CXR, abdominal ultrasound, and UA were unremarkable. She did have lingering nausea and mild leukocytosis for several days but today her nausea has resolved and she is requesting discharge home. She was monitored on telemetry with Heart rate mainly in the 50s. She was referred to outpatient cardiac stress testing. Levaquin was started empirically yesterday and symptoms improved while on levaquin so will continue for five more days. She was instructed to follow up with her PCP next week. - Discharge Plan Prescriptions/Med Rec: Levofloxacin [Levaquin] 500 mg PO Q24H #4 tablet Ondansetron [Zofran ODT] 4 mg PO Q4H PRN #20 tab.dis PRN Reason: Nausea Pantoprazole Sodium [Protonix] 40 mg PO DAILY #30 tablet. Home Medications: Home Meds ARIPiprazole [Abilify] 07/25/16 [History] Albuterol/Ipratropium [DuoNeb 3.0-0.5 MG/3 ML] 07/25/16 [History] buPROPion [Wellbutrin] 07/25/16 [History] Levofloxacin [Levaquin] 500 mg PO Q24H #4 tablet 07/28/16 [Rx] Ondansetron [Zofran ODT] 4 mg PO Q4H PRN #20 tab.dis 07/28/16 [Rx] Pantoprazole Sodium [Protonix] 40 mg PO DAILY #30 tablet. 07/28/16 [Rx] Referrals: PCP,None [Primary Care Provider] - - Patient Data Vitals - Most Recent: Last Vital Signs Temp 36.9 C 07/28/16 08:00 Pulse 51 L 07/28/16 08:00 Resp 16 07/28/16 08:00 BP 119/79 07/28/16 08:00 Pulse Ox 99 07/28/16 08:00 Weight - Most Recent: 63 kg I&O - Last 24 hours: Intake & Output 07/27/16 07/28/16 07/28/16 22:59 06:59 14:59 Intake Total 160 1200 1009 Output Total 500 2700 Balance -340 -1500 1009 Lab Results - Last 24 hrs: Laboratory Results - last 24 hr 07/27/16 07/28/16 07/28/16 Range/Units 04:04 06:03 10:30 WBC 12.42 H (4.0-11.0) K/uL RBC 4.43 (4.30-5.90) M/uL Hgb 12.5 (12.0-16.0) g/dL Hct 37.3 (36.0-46.0) % MCV 84.2 (80.0-98.0) fL MCH 28.2 (27.0-32.0) pg MCHC 33.5 (31.0-37.0) g/dL RDW Std Deviation 40.6 (28.0-62.0) fl RDW Coeff of Maddison 13 (11.0-15.0) % Plt Count 242 (150-400) K/uL MPV 10.00 (7.40-12.00) fL Neut % (Auto) 73.0 (48.0-80.0) % Lymph % (Auto) 15.5 L (16.0-40.0) % Sac % (Auto) 11.1 (0.0-15.0) % Eos % (Auto) 0.2 (0.0-7.0) % Baso % (Auto) 0.2 (0.0-1.5) % Neut # (Auto) 9.1 H (1.4-5.7) K/uL Lymph # (Auto) 1.9 (0.6-2.4) K/uL Sac # (Auto) 1.4 H (0.0-0.8) K/uL Eos # (Auto) 0.0 (0.0-0.7) K/uL Baso # (Auto) 0.0 (0.0-0.1) K/uL Nucleated RBC % 0.0 /100WBC Nucleated RBCs # 0 K/uL Sodium (136-146) mmol/L Potassium (3.5-5.1) mmol/L Chloride (98-110) mmol/L Carbon Dioxide (21-31) mmol/L BUN (6.0-23.0) mg/dL Creatinine (0.6-1.5) mg/dL Est Cr Clr Drug Dosing mL/min Estimated GFR (MDRD) ml/min Glucose (60-110) mg/dL Calcium (8.8-10.8) mg/dL Total Bilirubin 0.3 0.4 (0.1-1.5) mg/dL Direct Bilirubin 0.2 0.2 (0.0-0.5) mg/dL Indirect Bilirubin 0.1 0.2 (0.0-1.0) mg/dL AST 24 25 (5-40) IU/L ALT 17 21 (8-54) IU/L Alkaline Phosphatase 48 58 (40-150) Total Protein 6.0 6.4 (6.0-8.0) g/dL Albumin 3.6 3.6 (3.5-5.0) g/dL Globulin 2.4 2.8 (2.0-3.5) g/dL Albumin/Globulin Ratio 1.5 1.3 (1.3-2.8) 07/28/16 Range/Units 10:30 WBC (4.0-11.0) K/uL RBC (4.30-5.90) M/uL Hgb (12.0-16.0) g/dL Hct (36.0-46.0) % MCV (80.0-98.0) fL MCH (27.0-32.0) pg MCHC (31.0-37.0) g/dL RDW Std Deviation (28.0-62.0) fl RDW Coeff of Maddison (11.0-15.0) % Plt Count (150-400) K/uL MPV (7.40-12.00) fL Neut % (Auto) (48.0-80.0) % Lymph % (Auto) (16.0-40.0) % Sac % (Auto) (0.0-15.0) % Eos % (Auto) (0.0-7.0) % Baso % (Auto) (0.0-1.5) % Neut # (Auto) (1.4-5.7) K/uL Lymph # (Auto) (0.6-2.4) K/uL Sac # (Auto) (0.0-0.8) K/uL Eos # (Auto) (0.0-0.7) K/uL Baso # (Auto) (0.0-0.1) K/uL Nucleated RBC % /100WBC Nucleated RBCs # K/uL Sodium 132 L (136-146) mmol/L Potassium 3.1 L (3.5-5.1) mmol/L Chloride 101 (98-110) mmol/L Carbon Dioxide 21 (21-31) mmol/L BUN 6 (6.0-23.0) mg/dL Creatinine 0.9 (0.6-1.5) mg/dL Est Cr Clr Drug Dosing 65.96 mL/min Estimated GFR (MDRD) > 60.0 ml/min Glucose 119 H (60-110) mg/dL Calcium 8.1 L (8.8-10.8) mg/dL Total Bilirubin 0.4 (0.1-1.5) mg/dL Direct Bilirubin (0.0-0.5) mg/dL Indirect Bilirubin (0.0-1.0) mg/dL AST 24 (5-40) IU/L ALT 22 (8-54) IU/L Alkaline Phosphatase 58 (40-150) Total Protein 6.5 (6.0-8.0) g/dL Albumin 3.5 (3.5-5.0) g/dL Globulin 3.0 (2.0-3.5) g/dL Albumin/Globulin Ratio 1.2 L (1.3-2.8) SOLIS Results - Last 24 hrs: Microbiology 07/27/16 14:05 Anaerobic Blood Culture - Final Blood - Venous - Lab Draw Med Orders - Current: Current Medications Sodium Chloride (Normal Saline) 1,000 mls @ 125 mls/hr IV ASDIRECTED REGLA Last Admin: 07/28/16 10:08 Dose: 125 mls/hr Pantoprazole Sodium 40 mg/ (Sodium Chloride) 10 mls @ 300 mls/hr IV Q12H REGLA Last Admin: 07/28/16 09:24 Dose: 300 mls/hr Levofloxacin/Dextrose 750 mg/ (Premix) 150 mls @ 100 mls/hr IV Q24H REGLA Last Admin: 07/27/16 14:30 Dose: 100 mls/hr Morphine Sulfate (Morphine) 2 mg IVPUSH Q3H PRN PRN Reason: Pain (severe 7-10) Ondansetron HCl (Zofran) 4 mg IVPUSH Q4H PRN PRN Reason: Nausea Last Admin: 07/27/16 16:37 Dose: 4 mg Promethazine HCl (Phenergan) 25 mg IM Q6H PRN PRN Reason: Nausea Last Admin: 07/27/16 17:45 Dose: 25 mg Sodium Chloride (Saline Flush) 10 ml FLUSH ASDIRECTED PRN PRN Reason: Keep Vein Open Sodium Chloride (Saline Flush) 2.5 ml FLUSH ASDIRECTED PRN PRN Reason: Keep Vein Open Discontinued Medications Atropine Sulfate (Atropine 0.1 Mg/Ml) 0.5 mg IVPUSH ONETIME ONE Stop: 07/25/16 14:53 Last Admin: 07/25/16 14:52 Dose: 0.5 mg Sodium Chloride (Normal Saline) 1,000 mls @ 999 mls/hr IV STAT ONE Stop: 07/25/16 15:38 Last Admin: 07/25/16 14:38 Dose: 999 mls/hr Sodium Chloride (Normal Saline) 1,000 mls @ 999 mls/hr IV STAT ONE Stop: 07/25/16 18:00 Last Admin: 07/25/16 17:12 Dose: 999 mls/hr Dextrose/Sodium Chloride (Dextrose 5%-Normal Saline) 1,000 mls @ 125 mls/hr IV ASDIRECTED REGLA Sodium Chloride (Normal Saline) 1,000 mls @ 999 mls/hr IV .Bolus ONE Stop: 07/25/16 19:46 Last Admin: 07/25/16 18:50 Dose: 999 mls/hr Sodium Chloride (Normal Saline) 1,000 mls @ 999 mls/hr IV .BOLUS REGLA Iopamidol (Isovue Multipack-370 (76%)) 100 ml IVPUSH ONETIME STA Stop: 07/25/16 15:44 Last Admin: 07/25/16 15:44 Dose: 100 ml Morphine Sulfate (Morphine) 2 mg IVPUSH ONETIME ONE Stop: 07/25/16 15:21 Last Admin: 07/25/16 17:19 Dose: Not Given Morphine Sulfate (Morphine) 2 mg IVPUSH Q3H PRN PRN Reason: Pain (severe 7-10) Stop: 07/26/16 17:53 Ondansetron HCl (Zofran) 4 mg IVPUSH ONETIME ONE Stop: 07/25/16 14:39 Last Admin: 07/25/16 14:38 Dose: 4 mg Ondansetron HCl (Zofran) 4 mg IVPUSH ONETIME ONE Stop: 07/25/16 17:06 Last Admin: 07/25/16 17:14 Dose: 4 mg Pantoprazole Sodium (Protonix Iv) 40 mg IV Q12HR REGLA Last Admin: 07/25/16 20:56 Dose: 40 mg *Q Meaningful Use (DIS) - VTE *Q VTE Criteria *Q: - Stroke *Q Stroke Criteria *Q: - AMI *Q AMI Criteria *Q:
[2016-07-28 13:08] VITALS: BP 114/81
[2016-07-28] MEDS: Levofloxacin/Dextrose 5%-Water 750 MG in Premix Bag 1 BAG IV SCH (15:33)
--- NOTE | 2016-07-30 10:55 | US ---
EXAM DATE: 07/25/16 PATIENT'S AGE: 45 Patient: JENNIE GAMA Facility: [place], [place] Site . Site : 1970 Study: US Abdomen [id number]/16/2017 3:04:19 PM Ordering Physician: Ifeanyi De Guzman Final Report: INDICATION: Discussion TECHNIQUE: Ultrasound abdomen complete. Sonographic images of the entire abdomen were obtained using chang-scale and color Doppler. COMPARISON: None FINDINGS: Liver: Fatty infiltration liver. No masses. No intrahepatic biliary dilatation. Gallbladder: No stones or sludge. Normal wall thickness. No pericholecystic fluid. Positive sonographic Ellison`s sign. Common bile duct: 3 mm. Pancreas: Normal. Spleen: Normal in size and appearance. Right kidney: 10.0 cm. Normal echotexture and cortex. No masses, stones, or hydronephrosis. Left kidney: 10.1 cm. Normal echotexture and cortex. No masses, stones, or hydronephrosis. Vasculature: Proximal abdominal aorta and IVC are normal in caliber. IMPRESSION: Sonographically normal gallbladder and common bile duct with positive sonographic Ellison`s sign. Fatty infiltration of the liver. Dictated by Edis Benjamin MD @ 07/27/2016 10:17:32 PM Dictated by: Edis Benjamin MD @ 07/27/2016 22:17:37 (Electronic Signature) Report Signed by Proxy. ERIE COUNTY MEDICAL CENTERJose Maria
--- NOTE | 2016-07-30 15:38 | ECHO ---
EXAM DATE: 07/25/16 PATIENT'S AGE: 45 The echocardiogram report can be seen in this patient's EMR (Electronic Medical Record) in the Reports section. SONYA
== END 2016-07-28 14:15 | disposition home or self-care (01) | DRG 392 ==
LOC: MW.ED 14:07 → MW.ICU 17:02 → OBSVTOIN 17:02 → MW.MS 07-27 16:48
PROVIDERS: ADMIT Internal Medicine; ATTEND Internal Medicine
DX: K52.9 Noninfective gastroenteritis and colitis, unspecified (principal); R00.1 Bradycardia, unspecified; E86.0 Dehydration; D72.829 Elevated white blood cell count, unspecified; J45.909 Unspecified asthma, uncomplicated; G30.9 Alzheimer's disease, unspecified; R10.12 Left upper quadrant pain; F02.80 Dementia in other diseases classified elsewhere, unspecified severity, without behavioral disturbance, psychotic disturbance, mood disturbance, and anxiety; R11.2 Nausea with vomiting, unspecified; F41.8 Other specified anxiety disorders; F43.10 Post-traumatic stress disorder, unspecified; G58.9 Mononeuropathy, unspecified; F41.9 Anxiety disorder, unspecified; F17.200 Nicotine dependence, unspecified, uncomplicated; Z79.899 Other long term (current) drug therapy
CPT/HCPCS: 36415; 71010; 74000; 74177; 80053; 80305; 81001; 82150; 82962; 83605; 83690; 84484; 84703; 85025; 93005 ×2; 96361 ×2; 96374; 96375 ×2; 99285; J0461; J2405; J7040; Q9967; 76700; 76700-26; 80048; 80076; 83735; 87040; 87086; 93306; 96372; 96376; C9113; G0378; J1956; J2550; J7042

== ENCOUNTER 2016-11-25 22:58 | Emergency (ER) | payer MEDICAID ==
[2016-11-25] MEDS ORDERED: LORazepam 0.5 MG Tab PO ONE (23:06)
[2016-11-25] MEDS ORDERED: predniSONE 20 MG Tab PO ONE (23:06)
--- NOTE | 2016-11-25 23:09 | EDM.PDOC ---
ED HPI GENERAL MEDICAL PROBLEM - General Chief Complaint: Respiratory Problem Stated Complaint: UNK Time Seen by Provider: 11/25/16 23:01 - History of Present Illness INITIAL COMMENTS - FREE TEXT/NARRATIVE: HISTORY AND PHYSICAL: History of present illness: The patient is a 46-year-old male with a known history of asthma as well as mood disorder and anxiety who presents with complaints of asthma flareup as well as anxiety. She called the ambulance and they gave her a nebulizer treatment in route and currently she is feeling much improved but still feels somewhat anxious. The patient continues to smoke cigarettes but is trying to quit. She says she has had a cold the last few days with an occasional cough and runny nose but no fevers and no chest pain. Patient denies abdominal complaints. Patient is unsure of when she last took prednisone Review of systems: As per history of present illness and below otherwise all systems reviewed and negative. Past medical history: As per history of present illness and as reviewed below otherwise noncontributory. Surgical history: As per history of present illness and as reviewed below otherwise noncontributory. Social history: No reported history of drug or alcohol abuse. Family history: As per history of present illness and as reviewed below otherwise noncontributory. Physical exam: HEENT: Atraumatic, normocephalic, pupils reactive, negative for conjunctival pallor or scleral icterus, mucous membranes moist, throat clear, neck supple, nontender, trachea midline. Patient has nasal quality to voice Lungs: Clear to auscultation, there is no wheezing stridor or work of breathing breath sounds equal bilaterally, chest nontender. Heart: S1S2, regular, negative for clicks, rubs, or JVD. Abdomen: Soft, nondistended, nontender. Negative for masses or hepatosplenomegaly. Negative for costovertebral tenderness. Pelvis: Stable nontender. Genitourinary: Deferred. Rectal: Deferred. Extremities: Atraumatic, negative for cords or calf pain. Neurovascular unremarkable. Neuro: Awake, alert, oriented. Cranial nerves II through XII unremarkable. Cerebellum unremarkable. Motor and sensory unremarkable throughout. Exam nonfocal. Diagnostics: Chest x-ray Therapeutics: Prednisone and by mouth Ativan Impression: Acute asthma exacerbation, anxiety Definitive disposition and diagnosis as appropriate pending reevaluation and review of above. - Related Data Allergies Allergy/AdvReac Type Severity Reaction Status Date / Time No Known Allergies Allergy Verified 07/25/16 15:03 Home Meds: Home Meds ARIPiprazole [Abilify] 30 mg PO DAILY 07/25/16 [History] Albuterol/Ipratropium [DuoNeb 3.0-0.5 MG/3 ML] 3 ml INH ASDIRECTED PRN 07/25/16 [History] buPROPion [Wellbutrin] 100 mg IN DAILY 07/25/16 [History] Ondansetron [Zofran ODT] 4 mg PO Q4H PRN #20 tab.dis 07/28/16 [Rx] Pantoprazole Sodium [Protonix] 40 mg PO DAILY #30 tablet. 07/28/16 [Rx] Past Medical History Respiratory History: Reports: Asthma Neurological History: Reports: Alzheimers Disease, Other (See Below) Other Neuro History: son states "jerking" all her life, also questionable Alzheimers Psychiatric History: Reports: Anxiety, Depression, Emotional Problems, Mood Swings, PTSD Other Psychiatric History: On meds, has not taken them for about 8 months Social & Family History - Family History Family Medical History: Unobtainable - Tobacco Use Smoking Status *Q: Current Some Day Smoker Years of Tobacco use: 5 Packs/Tins Daily: 0.1 Second Hand Smoke Exposure: No - Caffeine Use Caffeine Use: Reports: Coffee, Soda - Recreational Drug Use Recreational Drug Use: No ED ROS GENERAL - Review of Systems Review Of Systems: ROS reveals no pertinent complaints other than HPI. ED EXAM, GENERAL - Physical Exam Exam: See Below (See dictation) Course - Vital Signs Last Recorded V/S: Last Vital Signs Temp 36.9 C 11/25/16 22:59 Pulse 94 11/25/16 22:59 Resp 24 H 11/25/16 22:59 BP 106/68 11/25/16 22:59 Pulse Ox 99 11/25/16 22:59 - Orders/Labs/Meds Orders: Active Orders 24 hr Category Date Time Status Chest 2V [CR] Stat Exams 11/25/16 23:06 Taken Meds: Medications Discontinued Medications Generic Name Dose Route Start Last Admin Trade Name Freq PRN Reason Stop Dose Admin Lorazepam 0.5 mg 11/25/16 23:06 11/25/16 23:14 Ativan PO 11/25/16 23:07 0.5 mg ONETIME ONE Administration Prednisone 40 mg 11/25/16 23:06 11/25/16 23:14 Prednisone PO 11/25/16 23:07 40 mg ONETIME ONE Administration Departure - Departure Time of Disposition: 00:19 Disposition: Home, Self-Care 01 Condition: Good Clinical Impression: Anxiety Acute asthma exacerbation Qualifiers: Asthma severity: mild Asthma persistence: unspecified Qualified Code(s): J45.901 - Unspecified asthma with (acute) exacerbation - Discharge Information Forms: ED Department Discharge Additional Instructions: The following information is given to patients seen in the emergency department who are being discharged to home. This information is to outline your options for follow-up care. We provide all patients seen in our emergency department with a follow-up referral. The need for follow-up, as well as the timing and circumstances, are variable depending upon the specifics of your emergency department visit. If you don't have a primary care physician on staff, we will provide you with a referral. We always advise you to contact your personal physician following an emergency department visit to inform them of the circumstance of the visit and for follow-up with them and/or the need for any referrals to a consulting specialist. The emergency department will also refer you to a specialist when appropriate. This referral assures that you have the opportunity for followup care with a specialist. All of these measure are taken in an effort to provide you with optimal care, which includes your followup. Under all circumstances we always encourage you to contact your private physician who remains a resource for coordinating your care. When calling for followup care, please make the office aware that this follow-up is from your recent emergency room visit. If for any reason you are refused follow-up, please contact the [facility] emergency department at and ask to speak to the emergency department charge nurse. [facility] Primary care- Internal Medicine and Family [address] [address] Please call and schedule a follow-up appointment in the clinic or with your provider in the next few days to reevaluate care. Please use your albuterol/ Ventolin that you have at home more regularly, every 6 hours for the next 2 days. Please take prednisone as prescribed until it is finished. Return to ER as needed and as discussed. - My Orders Last 24 Hours: My Active Orders 11/25/16 23:06 Chest 2V [CR] Stat - Assessment/Plan Last 24 Hours: My Active Orders 11/25/16 23:06 Chest 2V [CR] Stat
[2016-11-26 00:35] VITALS: BP 100/62
--- NOTE | 2016-11-26 14:24 | CR ---
EXAM DATE: 11/25/16 PATIENT'S AGE: 46 Patient: JENNIE GAMA Facility: [place], [place] Site . Site : 1970 Study: XRay Chest [id number] 11:34:57 PM Ordering Physician: Maria Esther Ponce Final Report: INDICATIONS: Pain. Shortness of breath. TECHNIQUE: Chest 2 view. COMPARISON: None FINDINGS: No pneumothorax, pleural effusion or airspace consolidation. Cardiac and mediastinal contours are within normal limits. Upper abdomen and osseous structures show no acute abnormality. IMPRESSION: No evidence of acute cardiopulmonary disease. Dictated by Derrick Hart MD @ 11/25/2016 11:47:25 PM Dictated by: Derrick Hart MD @ 11/25/2016 23:47:32 (Electronic Signature) Report Signed by Proxy. [facility]
== END 2016-11-26 00:33 | disposition home or self-care (01) ==
LOC: MW.ED 22:58
DX: J45.901 Unspecified asthma with (acute) exacerbation (principal); F41.9 Anxiety disorder, unspecified; F17.210 Nicotine dependence, cigarettes, uncomplicated; G30.9 Alzheimer's disease, unspecified; F02.80 Dementia in other diseases classified elsewhere, unspecified severity, without behavioral disturbance, psychotic disturbance, mood disturbance, and anxiety; F32.9 Major depressive disorder, single episode, unspecified; Z79.899 Other long term (current) drug therapy
CPT/HCPCS: 71020; 99285; A9270; 99283

== ENCOUNTER 2018-06-21 10:11 | Emergency (ER) | payer MEDICAID, SELFPAY ==
[2018-06-21] MEDS ORDERED: Ketorolac 60 MG/2 ML SDV IM ONE (10:15)
--- NOTE | 2018-06-21 10:16 | EDM.PDOC ---
ED HPI GENERAL MEDICAL PROBLEM - General Chief Complaint: Back Pain or Injury Stated Complaint: BACK PAIN Time Seen by Provider: 06/21/18 10:15 Source of Information: Reports: Patient, EMS History Limitations: Reports: No Limitations - History of Present Illness INITIAL COMMENTS - FREE TEXT/NARRATIVE: HISTORY AND PHYSICAL: History of present illness: Patient is a 47-year-old female who presents to the emergency room by ambulance with complaints of low left lumbar back pain. She states over the past several months she has had muscle spasms involving the left low back which she does have a muscle relaxer for. This morning she woke up with the lumbar back pain and did not take her pain medication as prescribed. She states the pain became very severe and therefore called EMS for transport. She denies any injury, trauma or falls. Patient denies any fever, chills, headache, change in vision, syncope or near syncope. Denies any chest pain, shortness of breath or cough. Denies any abdominal pain, nausea, vomiting, diarrhea, constipation or dysuria. Has not noted any blood in urine or stool. Patient has been eating and drinking appropriately. Review of systems: As per history of present illness and below otherwise all systems reviewed and negative. Past medical history: As per history of present illness and as reviewed below otherwise noncontributory. Surgical history: As per history of present illness and as reviewed below otherwise noncontributory. Social history: See social history for further information Family history: As per history of present illness and as reviewed below otherwise noncontributory. Physical exam: General: Well-developed and well-nourished 47-year-old -[place] female. Alert and oriented. Nontoxic appearing and in no acute distress. HEENT: Atraumatic, normocephalic, pupils equal and reactive bilaterally, negative for conjunctival pallor or scleral icterus, mucous membranes moist, trachea midline. No drooling or trismus noted. No meningeal signs. No hot potato voice noted. Lungs: Clear to auscultation, breath sounds equal bilaterally, chest nontender. Heart: S1S2, regular rate and rhythm without overt murmur Abdomen: Soft, nondistended, nontender. Negative for masses. Pelvis: Stable nontender. Rectal: Deferred/Declined. Skin: Intact, warm, dry. No lesions or rashes noted. Extremities: Atraumatic, moves all extremities per self without difficulty or deficits, negative for cords or calf pain. Neurovascular unremarkable. C-spine/Back: No pinpoint vertebral tenderness upon palpation. No crepitus, step -offs or obvious deformities. Patient denies any numbness, tingling or saddle paresthesias. Denies any urinary or fecal incontinence. She does have some paraspinous muscular tenderness to the left low lumbar region. Neuro: Awake, alert, oriented. Cranial nerves II through XII unremarkable. Cerebellum unremarkable. Motor and sensory unremarkable throughout. Exam nonfocal. Notes: X-ray shows no acute fractures. Trace degenerative changes. Did get relief with the Toradol and Norflex IM. We discussed the need for appropriate follow-up with her primary care provider. Supportive care measures were reviewed and discussed. Voices understanding and is agreeable to plan of care. Denies any further questions or concerns at this time. Diagnostics: Lumbar spine x-ray Therapeutics: Toradol, Norflex Prescription: Flexeril Diclofenac Impression: Acute on chronic lumbar back pain Plan: 1. The medication he received as an injection today does cause drowsiness so do not drive for the remaining day 2. When resting please lay on a flat firm surface. Limit your immobility to prevent muscle stiffness, get up to ambulate/move around/gentle stretching multiple times throughout the day. May alternate heat and ice to the painful area and 3. Tylenol as needed for back pain. Otherwise take the prescribed Flexeril and diclofenac as directed. Diclofenac is an anti-inflammatory so do not take any additional NSAIDs with this medication, such as ibuprofen or Aleve. Flexeril as a muscle relaxant, this medication may cause drowsiness a do not take it will driving her needing to be functioning outside of the house. 4. Please follow-up with your primary care provider as we discussed. 5. Return to the ED as needed and as discussed. Definitive disposition and diagnosis as appropriate pending reevaluation and review of above. Back Pain Score (Numeric/FACES): 8 - Related Data Allergies Allergy/AdvReac Type Severity Reaction Status Date / Time No Known Allergies Allergy Verified 06/21/18 10:14 Home Meds: Home Meds ARIPiprazole [Abilify] 30 mg PO DAILY 07/25/16 [History] Albuterol/Ipratropium [DuoNeb 3.0-0.5 MG/3 ML] 3 ml INH ASDIRECTED PRN 07/25/16 [History] buPROPion [Wellbutrin] 100 mg IN DAILY 07/25/16 [History] Ondansetron [Zofran ODT] 4 mg PO Q4H PRN #20 tab.dis 07/28/16 [Rx] Pantoprazole Sodium [Protonix] 40 mg PO DAILY #30 tablet. 07/28/16 [Rx] Cyclobenzaprine [Flexeril] 10 mg PO TID PRN 7 Days #21 tab 06/21/18 [Rx] Diclofenac Sodium [Voltaren] 50 mg PO BID PRN #30 tab.ec 06/21/18 [Rx] Past Medical History Respiratory History: Reports: Asthma Neurological History: Reports: Alzheimers Disease, Other (See Below) Other Neuro History: son states "jerking" all her life, also questionable Alzheimers Psychiatric History: Reports: Anxiety, Depression, Emotional Problems, Mood Swings, PTSD Other Psychiatric History: On meds, has not taken them for about 8 months Hematologic History: Reports: Anemia Social & Family History - Family History Family Medical History: Unobtainable - Caffeine Use Caffeine Use: Reports: Coffee, Soda ED ROS GENERAL - Review of Systems Review Of Systems: ROS reveals no pertinent complaints other than HPI. ED EXAM,LOWER BACK PAIN/INJURY - Physical Exam Exam: See Below (See dictation) Course - Vital Signs Last Recorded V/S: Last Vital Signs Temp 97.6 F 06/21/18 10:15 Pulse 70 06/21/18 10:15 Resp 16 06/21/18 10:15 BP 129/93 H 06/21/18 10:15 Pulse Ox 99 06/21/18 10:15 - Orders/Labs/Meds Meds: Medications Discontinued Medications Generic Name Dose Route Start Last Admin Trade Name Freq PRN Reason Stop Dose Admin Ketorolac Tromethamine 60 mg 06/21/18 10:15 06/21/18 11:30 Toradol IM 06/21/18 10:16 60 mg ONETIME ONE Administration Orphenadrine Citrate 60 mg 06/21/18 10:15 06/21/18 11:31 Norflex IM 06/21/18 10:16 60 mg NOW STA Administration Departure - Departure Time of Disposition: 11:43 Disposition: Home, Self-Care 01 Clinical Impression: Lumbar back pain - Discharge Information Prescriptions: Cyclobenzaprine [Flexeril] 10 mg PO TID PRN 7 Days #21 tab PRN Reason: Muscle Spasm Diclofenac Sodium [Voltaren] 50 mg PO BID PRN #30 tab.ec PRN Reason: Pain Instructions: Acute Back Pain, Adult Referrals: PCP,Unknown [Primary Care Provider] - Forms: ED Department Discharge Additional Instructions: The following information is given to patients seen in the emergency department who are being discharged to home. This information is to outline your options for follow-up care. We provide all patients seen in our emergency department with a follow-up referral. The need for follow-up, as well as the timing and circumstances, are variable depending upon the specifics of your emergency department visit. If you don't have a primary care physician on staff, we will provide you with a referral. We always advise you to contact your personal physician following an emergency department visit to inform them of the circumstance of the visit and for follow-up with them and/or the need for any referrals to a consulting specialist. The emergency department will also refer you to a specialist when appropriate. This referral assures that you have the opportunity for follow-up care with a specialist. All of these measure are taken in an effort to provide you with optimal care, which includes your follow-up. Under all circumstances we always encourage you to contact your private physician who remains a resource for coordinating your care. When calling for follow-up care, please make the office aware that this follow-up is from your recent emergency room visit. If for any reason you are refused follow-up, please contact the [facility] Emergency Department at and asked to speak to the emergency department charge nurse. [facility] [address] [place] [id number] [address] 1. The medication he received as an injection today does cause drowsiness so do not drive for the remaining day 2. When resting please lay on a flat firm surface. Limit your immobility to prevent muscle stiffness, get up to ambulate/move around/gentle stretching multiple times throughout the day. May alternate heat and ice to the painful area and 3. Tylenol as needed for back pain. Otherwise take the prescribed Flexeril and diclofenac as directed. Diclofenac is an anti-inflammatory so do not take any additional NSAIDs with this medication, such as ibuprofen or Aleve. Flexeril as a muscle relaxant, this medication may cause drowsiness a do not take it will driving her needing to be functioning outside of the house. 4. Please follow-up with your primary care provider as we discussed. 5. Return to the ED as needed and as discussed.
--- NOTE | 2018-06-21 11:42 | CR ---
Pain. Two-view lumbar spine. FINDINGS: Five lumbar type vertebral bodies. Right lateral bridging osteophyte at L1-L2. Normal height and alignment lumbar vertebral bodies no fractures. No spondylolisthesis or spondylolysis. Trace degenerative change. Dictated by Linda Hill MD @ Jun 21 2018 11:39AM Signed by Dr. Linda Hill @ Jun 21 2018 11:40AM
[2018-06-21 12:28] VITALS: BP 104/73
== END 2018-06-21 12:28 | disposition home or self-care (01) ==
LOC: MW.ED 10:11
DX: M54.5 Low back pain (principal); G89.29 Other chronic pain; J45.909 Unspecified asthma, uncomplicated; F41.9 Anxiety disorder, unspecified; F32.9 Major depressive disorder, single episode, unspecified; G30.9 Alzheimer's disease, unspecified; F02.80 Dementia in other diseases classified elsewhere, unspecified severity, without behavioral disturbance, psychotic disturbance, mood disturbance, and anxiety; Z79.899 Other long term (current) drug therapy
CPT/HCPCS: 72100; 96372; 99283; J1885; J2360

== ENCOUNTER 2018-07-12 00:33 | Emergency (ER) | payer OTHER ==
[2018-07-12 00:40] VITALS: BP 117/83
--- NOTE | 2018-07-12 00:57 | EDM.PDOC ---
ED HPI GENERAL MEDICAL PROBLEM - General Chief Complaint: General Stated Complaint: MEDICAL CLEARANCE- ASTHMA Time Seen by Provider: 07/12/18 00:55 - History of Present Illness INITIAL COMMENTS - FREE TEXT/NARRATIVE: HISTORY AND PHYSICAL: History of present illness: Patient 47-year-old female presents in custody of law enforcement for medical clearance she has no complaints Review of systems: As per history of present illness and below otherwise all systems reviewed and negative. Past medical history: As per history of present illness and as reviewed below otherwise noncontributory. Surgical history: As per history of present illness and as reviewed below otherwise noncontributory. Social history: No reported history of drug or alcohol abuse. Family history: As per history of present illness and as reviewed below otherwise noncontributory. Physical exam: HEENT: Atraumatic, normocephalic, pupils reactive, negative for conjunctival pallor or scleral icterus, mucous membranes moist, throat clear, neck supple, nontender, trachea midline. Lungs: Clear to auscultation, breath sounds equal bilaterally, chest nontender. Heart: S1S2, regular, negative for clicks, rubs, or JVD. Abdomen: Soft, nondistended, nontender. Negative for masses or hepatosplenomegaly. Negative for costovertebral tenderness. Pelvis: Stable nontender. Genitourinary: Deferred. Rectal: Deferred. Extremities: Atraumatic, negative for cords or calf pain. Neurovascular unremarkable. Neuro: Awake, alert, oriented. Cranial nerves II through XII unremarkable. Cerebellum unremarkable. Motor and sensory unremarkable throughout. Exam nonfocal. Diagnostics: None Therapeutics: None Impression: #1 medical clearance for incarceration Definitive disposition and diagnosis as appropriate pending reevaluation and review of above. Back Pain Score (Numeric/FACES): 7 - Related Data Allergies Allergy/AdvReac Type Severity Reaction Status Date / Time No Known Allergies Allergy Verified 07/12/18 00:36 Home Meds: Home Meds ARIPiprazole [Abilify] 30 mg PO DAILY 07/25/16 [History] Albuterol/Ipratropium [DuoNeb 3.0-0.5 MG/3 ML] 3 ml INH ASDIRECTED PRN 07/25/16 [History] buPROPion [Wellbutrin] 100 mg IN DAILY 07/25/16 [History] Ondansetron [Zofran ODT] 4 mg PO Q4H PRN #20 tab.dis 07/28/16 [Rx] Pantoprazole Sodium [Protonix] 40 mg PO DAILY #30 tablet.dr 07/28/16 [Rx] Cyclobenzaprine [Flexeril] 10 mg PO TID PRN 7 Days #21 tab 06/21/18 [Rx] Diclofenac Sodium [Voltaren] 50 mg PO BID PRN #30 tab.ec 06/21/18 [Rx] traZODone HCl [Trazodone HCl] 50 mg PO DAILY 07/12/18 [History] Past Medical History Respiratory History: Reports: Asthma Neurological History: Reports: Alzheimers Disease, Other (See Below) Other Neuro History: son states "jerking" all her life, also questionable Alzheimers Psychiatric History: Reports: Anxiety, Depression, Emotional Problems, Mood Swings, PTSD Other Psychiatric History: On meds, has not taken them for about 8 months Hematologic History: Reports: Anemia - Infectious Disease History Infectious Disease History: Reports: Chicken Pox Social & Family History - Family History Family Medical History: Unobtainable - Tobacco Use Smoking Status *Q: Current Every Day Smoker Years of Tobacco use: 20 Packs/Tins Daily: 0.5 - Caffeine Use Caffeine Use: Reports: Coffee, Soda, Tea - Recreational Drug Use Recreational Drug Use: No ED ROS GENERAL - Review of Systems Review Of Systems: ROS reveals no pertinent complaints other than HPI. ED EXAM, GENERAL - Physical Exam Exam: See Below (She dictation) Course - Vital Signs Last Recorded V/S: Last Vital Signs Temp 36.2 C 07/12/18 00:37 Pulse 69 07/12/18 00:37 Resp 19 07/12/18 00:37 BP 117/83 07/12/18 00:37 Pulse Ox 100 07/12/18 00:37 Departure - Departure Time of Disposition: 00:56 Disposition: Home, Self-Care 01 Condition: Good Clinical Impression: Medical clearance for incarceration - Discharge Information Instructions: Medical Screening Exam Referrals: PCP,None [Primary Care Provider] - Forms: ED Department Discharge Additional Instructions: The following information is given to patients seen in the emergency department who are being discharged to home. This information is to outline your options for follow-up care. We provide all patients seen in our emergency department with a follow-up referral. The need for follow-up, as well as the timing and circumstances, are variable depending upon the specifics of your emergency department visit. If you don't have a primary care physician on staff, we will provide you with a referral. We always advise you to contact your personal physician following an emergency department visit to inform them of the circumstance of the visit and for follow-up with them and/or the need for any referrals to a consulting specialist. The emergency department will also refer you to a specialist when appropriate. This referral assures that you have the opportunity for followup care with a specialist. All of these measure are taken in an effort to provide you with optimal care, which includes your followup. Under all circumstances we always encourage you to contact your private physician who remains a resource for coordinating your care. When calling for followup care, please make the office aware that this follow-up is from your recent emergency room visit. If for any reason you are refused follow-up, please contact the [facility] emergency department at and asked to speak to the emergency department charge nurse. Follow-up primary medical doctor as needed as discussed return as needed as discussed
== END 2018-07-12 01:04 | disposition home or self-care (01) ==
LOC: MW.ED 00:33
DX: Z02.89 Encounter for other administrative examinations (principal); F41.9 Anxiety disorder, unspecified; F32.9 Major depressive disorder, single episode, unspecified; G30.9 Alzheimer's disease, unspecified; F02.80 Dementia in other diseases classified elsewhere, unspecified severity, without behavioral disturbance, psychotic disturbance, mood disturbance, and anxiety; F17.210 Nicotine dependence, cigarettes, uncomplicated; Z79.899 Other long term (current) drug therapy
CPT/HCPCS: 99282

== ENCOUNTER 2018-07-30 21:21 | Emergency (ER) | payer SELFPAY ==
--- NOTE | 2018-07-30 21:23 | EDM.PDOC ---
ED HPI GENERAL MEDICAL PROBLEM - General Stated Complaint: ASTHMA ATTACK Time Seen by Provider: 07/30/18 21:23 Source of Information: Reports: Patient, EMS - History of Present Illness INITIAL COMMENTS - FREE TEXT/NARRATIVE: HISTORY AND PHYSICAL: History of present illness: []Patient presents via EMS with complaint of "asthma attack", speaking in full sentences breathing nonlabored she also complains of right shoulder pain 5 out of 10 nonradiating She states she has been of [place] since 10 AM this morning and she was picked up at the bar by EMS, however she is not intoxicated her significant other is now present, patient is calm in no distress lab is completely normal no fever nausea vomiting diarrhea constipation shortness breath headache dizziness or palpitation no bowel or urine symptoms history of asthma currently out of medications Review of systems: As per history of present illness and below otherwise all systems reviewed and negative. Past medical history: As per history of present illness and as reviewed below otherwise noncontributory. Surgical history: As per history of present illness and as reviewed below otherwise noncontributory. Social history: No reported history of drug or alcohol abuse. Family history: As per history of present illness and as reviewed below otherwise noncontributory. Physical exam: HEENT: Atraumatic, normocephalic, pupils reactive, negative for conjunctival pallor or scleral icterus, mucous membranes moist, throat clear, neck supple, nontender, trachea midline. Lungs: Clear to auscultation, breath sounds equal bilaterally, chest nontender. Heart: S1S2, regular, negative for clicks, rubs, or JVD. Abdomen: Soft, nondistended, nontender. Negative for masses or hepatosplenomegaly. Negative for costovertebral tenderness. Pelvis: Stable nontender. Genitourinary: Deferred. Rectal: Deferred. Extremities: Atraumatic, negative for cords or calf pain. Neurovascular unremarkable. Neuro: Awake, alert, oriented. Cranial nerves II through XII unremarkable. Cerebellum unremarkable. Motor and sensory unremarkable throughout. Exam nonfocal. Diagnostics: [EBC CMP UA troponin EKG Chest 1 view ] Therapeutics: [ DuoNeb Solu-Medrol HFA ] Impression: [ history of asthma Malingering Chronic history of baseline ] Definitive disposition and diagnosis as appropriate pending reevaluation and review of above. right side chest Pain Score (Numeric/FACES): 10 - Related Data Allergies Allergy/AdvReac Type Severity Reaction Status Date / Time No Known Allergies Allergy Verified 07/12/18 00:36 Home Meds: Home Meds ARIPiprazole [Abilify] 30 mg PO DAILY 07/25/16 [History] Albuterol/Ipratropium [DuoNeb 3.0-0.5 MG/3 ML] 3 ml INH ASDIRECTED PRN 07/25/16 [History] buPROPion [Wellbutrin] 100 mg IN DAILY 07/25/16 [History] Ondansetron [Zofran ODT] 4 mg PO Q4H PRN #20 tab.dis 07/28/16 [Rx] Pantoprazole Sodium [Protonix] 40 mg PO DAILY #30 tablet.dr 07/28/16 [Rx] Cyclobenzaprine [Flexeril] 10 mg PO TID PRN 7 Days #21 tab 06/21/18 [Rx] Diclofenac Sodium [Voltaren] 50 mg PO BID PRN #30 tab.ec 06/21/18 [Rx] traZODone HCl [Trazodone HCl] 50 mg PO DAILY 07/12/18 [History] Past Medical History Respiratory History: Reports: Asthma Neurological History: Reports: Alzheimers Disease, Other (See Below) Other Neuro History: son states "jerking" all her life, also questionable Alzheimers Psychiatric History: Reports: Anxiety, Depression, Emotional Problems, Mood Swings, PTSD Other Psychiatric History: On meds, has not taken them for about 8 months Hematologic History: Reports: Anemia - Infectious Disease History Infectious Disease History: Reports: Chicken Pox Social & Family History - Family History Family Medical History: Unobtainable - Caffeine Use Caffeine Use: Reports: Coffee, Soda, Tea ED ROS GENERAL - Review of Systems Review Of Systems: See Below ED EXAM, GENERAL - Physical Exam Exam: See Below Course - Vital Signs Last Recorded V/S: Last Vital Signs Temp 97.3 F 07/30/18 21:26 Pulse 85 07/30/18 22:30 Resp 20 07/30/18 22:30 BP 111/63 07/30/18 22:30 Pulse Ox 95 07/30/18 22:30 - Orders/Labs/Meds Orders: Active Orders 24 hr Category Date Time Status EKG Documentation Completion [RC] STAT Care 07/30/18 21:24 Active RT Aerosol Therapy [RC] ASDIRECTED Care 07/30/18 21:25 Active DRUG SCREEN, URINE [URCHEM] Stat Lab 07/30/18 23:36 Ordered Sodium Chloride 0.9% [Normal Saline] 1,000 ml Med 07/30/18 21:30 Active IV STAT Medication Orders Sodium Chloride (Normal Saline) 1,000 mls @ 125 mls/hr IV STAT REGLA Last Admin: 07/30/18 22:00 Dose: 125 mls/hr Labs: Laboratory Tests 07/30/18 07/30/18 07/30/18 Range/Units 21:23 21:24 21:24 WBC 11.25 H (4.0-11.0) K/uL RBC 4.31 (4.30-5.90) M/uL Hgb 12.5 (12.0-16.0) g/dL Hct 38.0 (36.0-46.0) % MCV 88.2 (80.0-98.0) fL MCH 29.0 (27.0-32.0) pg MCHC 32.9 (31.0-37.0) g/dL RDW Std Deviation 47.3 (28.0-62.0) fl RDW Coeff of [place] 15 (11.0-15.0) % Plt Count 331 (150-400) K/uL MPV 9.20 (7.40-12.00) fL Neut % (Auto) 61.0 (48.0-80.0) % Lymph % (Auto) 29.3 (16.0-40.0) % Simpson % (Auto) 7.2 (0.0-15.0) % Eos % (Auto) 2.1 (0.0-7.0) % Baso % (Auto) 0.4 (0.0-1.5) % Neut # (Auto) 6.9 H (1.4-5.7) K/uL Lymph # (Auto) 3.3 H (0.6-2.4) K/uL Simpson # (Auto) 0.8 (0.0-0.8) K/uL Eos # (Auto) 0.2 (0.0-0.7) K/uL Baso # (Auto) 0.1 (0.0-0.1) K/uL Nucleated RBC % 0.0 /100WBC Nucleated RBCs # 0 K/uL INR 0.98 Sodium 135 L (136-145) mmol/L Potassium 3.7 (3.5-5.1) mmol/L Chloride 103 (98-107) mmol/L Carbon Dioxide 19.9 L (21.0-32.0) mmol/L BUN 14 (7.0-18.0) mg/dL Creatinine 1.0 (0.6-1.0) mg/dL Est Cr Clr Drug Dosing 58.15 mL/min Estimated GFR (MDRD) > 60.0 ml/min Glucose 89 (74-106) mg/dL Calcium 8.1 L (8.5-10.1) mg/dL Total Bilirubin 0.2 (0.2-1.0) mg/dL AST 20 (15-37) IU/L ALT 21 (14-63) IU/L Alkaline Phosphatase 97 (46-116) U/L Troponin I < 0.050 (0.000-0.056) ng/mL Total Protein 7.0 (6.4-8.2) g/dL Albumin 3.4 (3.4-5.0) g/dL Globulin 3.6 (2.6-4.0) g/dL Albumin/Globulin Ratio 0.9 (0.9-1.6) Lipase 243 (73-393) U/L Urine Color Urine Appearance Urine pH (5.0-8.0) Ur Specific Viola (1.001-1.035) Urine Protein (NEGATIVE) mg/dL Urine Glucose (UA) (NEGATIVE) mg/dL Urine Ketones (NEGATIVE) mg/dL Urine Occult Blood (NEGATIVE) Urine Nitrite (NEGATIVE) Urine Bilirubin (NEGATIVE) Urine Urobilinogen (<2.0) EU/dL Ur Leukocyte Esterase (NEGATIVE) Urine RBC (0-2/HPF) Urine WBC (0-5/HPF) Ur Squamous Epith Cells Urine Bacteria (NEGATIVE) Urine Mucus (NONE-MOD) Ethyl Alcohol 40 mg/dL 07/30/18 Range/Units 22:20 WBC (4.0-11.0) K/uL RBC (4.30-5.90) M/uL Hgb (12.0-16.0) g/dL Hct (36.0-46.0) % MCV (80.0-98.0) fL MCH (27.0-32.0) pg MCHC (31.0-37.0) g/dL RDW Std Deviation (28.0-62.0) fl RDW Coeff of [place] (11.0-15.0) % Plt Count (150-400) K/uL MPV (7.40-12.00) fL Neut % (Auto) (48.0-80.0) % Lymph % (Auto) (16.0-40.0) % Simpson % (Auto) (0.0-15.0) % Eos % (Auto) (0.0-7.0) % Baso % (Auto) (0.0-1.5) % Neut # (Auto) (1.4-5.7) K/uL Lymph # (Auto) (0.6-2.4) K/uL Simpson # (Auto) (0.0-0.8) K/uL Eos # (Auto) (0.0-0.7) K/uL Baso # (Auto) (0.0-0.1) K/uL Nucleated RBC % /100WBC Nucleated RBCs # K/uL INR Sodium (136-145) mmol/L Potassium (3.5-5.1) mmol/L Chloride (98-107) mmol/L Carbon Dioxide (21.0-32.0) mmol/L BUN (7.0-18.0) mg/dL Creatinine (0.6-1.0) mg/dL Est Cr Clr Drug Dosing mL/min Estimated GFR (MDRD) ml/min Glucose (74-106) mg/dL Calcium (8.5-10.1) mg/dL Total Bilirubin (0.2-1.0) mg/dL AST (15-37) IU/L ALT (14-63) IU/L Alkaline Phosphatase (46-116) U/L Troponin I (0.000-0.056) ng/mL Total Protein (6.4-8.2) g/dL Albumin (3.4-5.0) g/dL Globulin (2.6-4.0) g/dL Albumin/Globulin Ratio (0.9-1.6) Lipase (73-393) U/L Urine Color YELLOW Urine Appearance CLEAR Urine pH 6.0 (5.0-8.0) Ur Specific [place]ola 1.025 (1.001-1.035) Urine Protein NEGATIVE (NEGATIVE) mg/dL Urine Glucose (UA) NEGATIVE (NEGATIVE) mg/dL Urine Ketones NEGATIVE (NEGATIVE) mg/dL Urine Occult Blood MODERATE H (NEGATIVE) Urine Nitrite NEGATIVE (NEGATIVE) Urine Bilirubin NEGATIVE (NEGATIVE) Urine Urobilinogen 1.0 (<2.0) EU/dL Ur Leukocyte Esterase NEGATIVE (NEGATIVE) Urine RBC 1-3 (0-2/HPF) Urine WBC 0-1 (0-5/HPF) Ur Squamous Epith Cells FEW Urine Bacteria 1+ H (NEGATIVE) Urine Mucus LIGHT (NONE-MOD) Ethyl Alcohol mg/dL Meds: Medications Generic Name Dose Route Start Last Admin Trade Name Freq PRN Reason Stop Dose Admin Sodium Chloride 1,000 mls @ 125 mls/hr 07/30/18 21:30 07/30/18 22:00 Normal Saline IV 125 mls/hr STAT REGLA Administration Discontinued Medications Generic Name Dose Route Start Last Admin Trade Name Freq PRN Reason Stop Dose Admin Albuterol/Ipratropium 3 ml 07/30/18 21:24 07/30/18 21:43 Duoneb 3.0-0.5 Mg/3 Ml NEB 07/30/18 21:25 3 ml ONETIME ONE Administration Sterile Water Confirm 07/30/18 21:58 Sterile Water For Injection Administered 07/30/18 21:59 Dose 20 mls @ as directed .ROUTE .STK-MED ONE Methylprednisolone Sodium Succinate 125 mg 07/30/18 21:24 07/30/18 22:03 Solu-Medrol IVPUSH 07/30/18 21:25 125 mg ONETIME ONE Administration Pantoprazole Sodium 80 mg 07/30/18 21:26 07/30/18 22:05 Protonix Iv IVPUSH 07/30/18 21:27 80 mg .BOLUS ONE Administration Departure - Departure Time of Disposition: 23:42 Disposition: Home, Self-Care 01 Condition: Good Clinical Impression: Encounter for medical screening examination, History of asthma - Discharge Information Additional Instructions: The following information is given to patients seen in the emergency department who are being discharged to home. This information is to outline your options for follow-up care. We provide all patients seen in our emergency department with a follow-up referral. The need for follow-up, as well as the timing and circumstances, are variable depending upon the specifics of your emergency department visit. If you don't have a primary care physician on staff, we will provide you with a referral. We always advise you to contact your personal physician following an emergency department visit to inform them of the circumstance of the visit and for follow-up with them and/or the need for any referrals to a consulting specialist. The emergency department will also refer you to a specialist when appropriate. This referral assures that you have the opportunity for follow-up care with a specialist. All of these measure are taken in an effort to provide you with optimal care, which includes your follow-up. Under all circumstances we always encourage you to contact your private physician who remains a resource for coordinating your care. When calling for follow-up care, please make the office aware that this follow-up is from your recent emergency room visit. If for any reason you are refused follow-up, please contact the [facility] emergency department at and asked to speak to the emergency department charge nurse. - My Orders Last 24 Hours: My Active Orders 07/30/18 21:24 EKG Documentation Completion [RC] STAT 07/30/18 21:25 RT Aerosol Therapy [RC] ASDIRECTED 07/30/18 21:30 Sodium Chloride 0.9% [Normal Saline] 1,000 ml IV STAT 07/30/18 23:36 DRUG SCREEN, URINE [URCHEM] Stat - Assessment/Plan Last 24 Hours: My Active Orders 07/30/18 21:24 EKG Documentation Completion [RC] STAT 07/30/18 21:25 RT Aerosol Therapy [RC] ASDIRECTED 07/30/18 21:30 Sodium Chloride 0.9% [Normal Saline] 1,000 ml IV STAT 07/30/18 23:36 DRUG SCREEN, URINE [URCHEM] Stat
[2018-07-30] MEDS ORDERED: methylPREDNISolone Sodium Succinate 125 MG/2 ML SDV IVPUSH ONE (21:24)
[2018-07-30] MEDS ORDERED: Albuterol/Ipratropium 3.0-0.5 MG/3 ML Neb Soln NEB ONE (21:24)
[2018-07-30] MEDS ORDERED: Pantoprazole 40 MG Vial IVPUSH ONE (21:26)
[2018-07-30] MEDS ORDERED: Sodium Chloride 0.9% 1,000 ML IV SCH (21:30)
[2018-07-30] MEDS ORDERED: Water For Injection, Sterile 20 ML ONE (21:58)
[2018-07-30 22:23] LABS: CHLORIDE,CL 103 mmol/L (98-107); SODIUM,NA 135 mmol/L (136-145)
--- NOTE | 2018-07-30 23:34 | CR ---
Indication: Pain, shortness of breath Technique: Chest 1 view Comparison: None Findings/Impression: Cardiovascular and mediastinum: Heart size and vasculature are normal in caliber and appearance. Mediastinum is within normal limits. Lungs and pleural space: Lungs are clear. No sign of infiltrate or mass. No sign of pleural effusion. No pneumothorax. Bones and soft tissues: No significant findings. Dictated by Lala Guajardo MD @ Jul 30 2018 11:32PM Signed by Dr. Lala Guajardo @ Jul 30 2018 11:33PM
--- NOTE | 2018-07-30 23:34 | CR ---
Indication: Pain Technique: Three-view right shoulder Comparison: None Findings: Bones: Alignment is normal. No fractures or bone lesions. Joint spaces: Unremarkable. Soft tissues: Unremarkable. Impression: Negative. Dictated by Lala Guajardo MD @ Jul 30 2018 11:31PM Signed by Dr. Lala Guajardo @ Jul 30 2018 11:32PM
[2018-07-30 23:58] VITALS: BP 114/77
== END 2018-07-30 23:58 | disposition home or self-care (01) ==
LOC: MW.ED 21:21
DX: J45.909 Unspecified asthma, uncomplicated (principal); F41.9 Anxiety disorder, unspecified; F32.9 Major depressive disorder, single episode, unspecified; Z79.899 Other long term (current) drug therapy; Z76.5 Malingerer [conscious simulation]
CPT/HCPCS: 36415; 71045; 73030; 80053; 80305; 81001; 83690; 84484; 85025; 85610; 93005; 96361; 96374; 96375; 99285; C9113; G0480; J2930; J7040; 99284; J7620-GY

== ENCOUNTER 2018-08-10 18:33 | Emergency (ER) | payer SELFPAY ==
[2018-08-10] MEDS ORDERED: Ondansetron 4 MG/2 ML SDV IVPUSH ONE (18:35)
[2018-08-10] MEDS ORDERED: Sodium Chloride 0.9% 1,000 ML IV ONE (18:35)
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
[2018-08-10] MEDS ORDERED: MVI, Adult with Vitamin K 10 ML, Thiamine 100 MG, Folic Acid 1 MG in Sodium Chloride 0.... IV ONE ×4 (18:46)
--- NOTE | 2018-08-10 19:13 | CR ---
HISTORY: Chest pain and shortness of breath. TECHNIQUE: One view of the chest. COMPARISON: 07/30/2018. FINDINGS: There is no consolidation or pulmonary edema. No pneumothorax or pleural effusion. Cardiac size is within normal limits accounting for technique. IMPRESSION: No acute disease. Dictated by Woo Weiss MD @ 08/10/2018 7:10:55 PM Dictated by: Woo Weiss MD @ 08/10/2018 19:11:00 (Electronically Signed)
[2018-08-10 19:20] LABS: CHLORIDE,CL 108 mmol/L (98-107); SODIUM,NA 142 mmol/L (136-145)
[2018-08-10 20:37] VITALS: BP 99/66
== END 2018-08-10 20:45 | disposition home or self-care (01) ==
LOC: MW.ED 18:33
DX: F10.129 Alcohol abuse with intoxication, unspecified (principal); J45.909 Unspecified asthma, uncomplicated; F41.9 Anxiety disorder, unspecified; F32.9 Major depressive disorder, single episode, unspecified; Z79.899 Other long term (current) drug therapy; Y90.8 Blood alcohol level of 240 mg/100 ml or more
CPT/HCPCS: 36415; 71045; 80053; 80305; 81001; 85025; 93005; 96361; 96365; 96375; 99285; G0480; J2405; J3411; J7040; 99283

== ENCOUNTER 2019-06-26 22:32 | Emergency (ER) | payer OTHER ==
--- NOTE | 2019-06-26 22:55 | EDM.PDOC ---
ED HPI GENERAL MEDICAL PROBLEM - General Chief Complaint: General Stated Complaint: POSSIBLE COVID Time Seen by Provider: 06/26/19 22:35 - History of Present Illness INITIAL COMMENTS - FREE TEXT/NARRATIVE: 48-year-old female past medical history of carpal tunnel bilaterally, hairline fracture right ankle, arthritis left knee, asthma presenting with intoxication brought in by law enforcement. Apparently the patient was drinking with a friend when she was kicked out apparently for being boisterous or threatening others. Patient herself has no particular complaint. She endorses chronic left knee pain, occasional right ankle pain. She denies any bre shortness of breath, fever, chills, nausea, vomiting, chest pain, vision changes, focal weakness or numbness, pain when she pees. She does endorse drinking alcohol tonight. She denies street drugs. Patient denies diabetes. - Related Data Allergies Allergy/AdvReac Type Severity Reaction Status Date / Time No Known Allergies Allergy Verified 06/26/19 22:43 Home Meds: Home Meds ARIPiprazole [Abilify] 30 mg PO DAILY 07/25/16 [History] Albuterol/Ipratropium [DuoNeb 3.0-0.5 MG/3 ML] 3 ml INH ASDIRECTED PRN 07/25/16 [History] buPROPion [Wellbutrin] 100 mg IN DAILY 07/25/16 [History] Ondansetron [Zofran ODT] 4 mg PO Q4H PRN #20 tab.dis 07/28/16 [Rx] Pantoprazole Sodium [Protonix] 40 mg PO DAILY #30 tablet.dr 07/28/16 [Rx] Cyclobenzaprine [Flexeril] 10 mg PO TID PRN 7 Days #21 tab 06/21/18 [Rx] Diclofenac Sodium [Voltaren] 50 mg PO BID PRN #30 tab.ec 06/21/18 [Rx] traZODone HCl [Trazodone HCl] 50 mg PO DAILY 07/12/18 [History] Past Medical History HEENT History: Reports: Impaired 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 Cardiovascular History: Reports: None Respiratory History: Reports: Asthma Gastrointestinal History: Reports: None Genitourinary History: Reports: None 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 History: Reports: None Musculoskeletal History: Reports: None Neurological History: Reports: Alzheimers Disease, Other (See Below) Other Neuro History: son states "jerking" all her life, also questionable Alzheimers Psychiatric History: Reports: Anxiety, Depression, Emotional Problems, Mood Swings, PTSD Other Psychiatric History: On meds, has not taken them for about 8 months Endocrine/Metabolic History: Reports: None Hematologic History: Reports: Anemia Immunologic History: Reports: None Oncologic (Cancer) History: Reports: None Dermatologic History: Reports: None - Infectious Disease History Infectious Disease History: Reports: Chicken Pox - Past Surgical History Head Surgeries/Procedures: Reports: None Female Surgical History: Reports: Tubal Ligation Social & Family History - Family History Family Medical History: Unobtainable - Tobacco Use Smoking Status *Q: Current Every Day Smoker Years of Tobacco use: 30 Packs/Tins Daily: 0.2 - Caffeine Use Caffeine Use: Reports: Coffee, Soda, Tea - Recreational Drug Use Recreational Drug Use: No ED ROS GENERAL - Review of Systems Review Of Systems: Comprehensive ROS is negative, except as noted in HPI. ED EXAM, GENERAL - Physical Exam Exam: See Below Free Text/Narrative:: General: No acute distress. Comfortable. Heent: Examination revealed no pallor, no icterus, no lymphadenopathy. Disconjugate gaze, chronic per patient. The patient has normal posterior pharynx, moist mucous membranes. Neck: Supple. No JVD. No rigidity. Heart: Normal rate. Reg rhythm. No murmurs appreciated. Lungs: Bilaterally clear to auscultation. No focal findings. Abdomen: Nontender, non-distended, soft, no CVA tenderness. Neuro: Pt is moving all four extremities. EOMI. PERRL. Normal speech. Skin: Exposed areas appeared normally perfused, warm, normal color with no meaningful rashes or lesions. Extremities: Peripheral examination revealed no pedal edema. Course - Vital Signs Text/Narrative:: Patient with reasonable vital signs, no complaints tonight. No significant slurring. No ataxia. No acute complaint. No clear indication for lab work or imaging. Patient be discharged to law enforcement. Last Recorded V/S: Last Vital Signs Temp 97.4 F 06/26/19 22:41 Pulse 92 06/26/19 22:41 Resp 16 06/26/19 22:41 BP 110/72 06/26/19 22:41 Pulse Ox 96 06/26/19 22:41 Departure - Departure Time of Disposition: 22:45 Disposition: DC/Tfer to [facility] Condition: Good Clinical Impression: Intoxication - Discharge Information Referrals: PCP,None [Primary Care Provider] - Additional Instructions: Have the patient return to emergency immediately with any weakness in one hand or 1 foot, repetitive vomiting, new or different confusion, gross vision changes , sudden abdominal pain or any other concerning symptom. The following information is given to patients seen in the emergency department who are being discharged to home. This information is to outline your options for follow-up care. We provide all patients seen in our emergency department with a follow-up referral. The need for follow-up, as well as the timing and circumstances, are variable depending upon the specifics of your emergency department visit. If you don't have a primary care physician on staff, we will provide you with a referral. We always advise you to contact your personal physician following an emergency department visit to inform them of the circumstance of the visit and for follow-up with them and/or the need for any referrals to a consulting specialist. The emergency department will also refer you to a specialist when appropriate. This referral assures that you have the opportunity for follow-up care with a specialist. All of these measure are taken in an effort to provide you with optimal care, which includes your follow-up. Under all circumstances we always encourage you to contact your private physician who remains a resource for coordinating your care. When calling for follow-up care, please make the office aware that this follow-up is from your recent emergency room visit. If for any reason you are refused follow-up, please contact the [facility] Emergency Department at and asked to speak to the emergency department charge nurse. Sepsis Event Note - Evaluation Sepsis Screening Result: No Definite Risk - Focused Exam Vital Signs: Vital Signs Temp Pulse Resp BP Pulse Ox 06/26/19 22:41 97.4 F 92 16 110/72 96 Date Exam was Performed: 06/26/19 Time Exam was Performed: 22:52
== END 2019-06-26 23:08 | disposition home or self-care (01) ==
LOC: MW.ED 22:32
CPT/HCPCS: 99282; 99284

== ENCOUNTER 2019-08-16 19:26 | Emergency (ER) | payer SELFPAY ==
[2019-08-16 19:32] VITALS: PULSE 77
[2019-08-16] MEDS ORDERED: OLANZapine 5 MG Tab PO ONE (19:33)
--- NOTE | 2019-08-16 19:46 | EDM.PDOCBH ---
ED HPI GENERAL MEDICAL PROBLEM - General Chief Complaint: Behavioral/Psych Stated Complaint: INTOXICATION Time Seen by Provider: 08/16/19 19:30 Source of Information: Reports: Patient, EMS, Old Records History Limitations: Reports: No Limitations - History of Present Illness INITIAL COMMENTS - FREE TEXT/NARRATIVE: This is a 48-year-old female with a past medical history of bipolar disorder, asthma, anxiety presenting with a behavioral health problem. She arrives to the hospital by EMS. She was found in the parking lot of a shopping center with a friend and was reportedly involved in a verbal altercation. She told EMS that she was upset about the recent loss of her son. Nothing acutely happened today and she denies any desire to harm herself or anybody else. She denies any alcohol or drug use. 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 Cardiovascular History: Reports: None Respiratory History: Reports: Asthma Gastrointestinal History: Reports: None Genitourinary History: Reports: None T[employer] SERVICES PROFESSIONAL History: Reports: None Musculoskeletal History: Reports: None Neurological History: Reports: Alzheimers Disease, Other (See Below) Other Neuro History: son states "jerking" all her life, also questionable Alzheimers Psychiatric History: Reports: Anxiety, Bipolar, Depression, Emotional Problems, Mood Swings, PTSD Other Psychiatric History: On meds, has not taken them for about 8 months Endocrine/Metabolic History: Reports: None Hematologic History: Reports: Anemia Immunologic History: Reports: None Oncologic (Cancer) History: Reports: None Dermatologic History: Reports: None - Infectious Disease History Infectious Disease History: Reports: None - Past Surgical History Head Surgeries/Procedures: Reports: None Female Surgical History: Reports: Tubal Ligation Social & Family History - Family History Family Medical History: Noncontributory - Tobacco Use Smoking Status *Q: Current Every Day Smoker Years of Tobacco use: 30 Packs/Tins Daily: 0.5 - Caffeine Use Caffeine Use: Reports: Coffee, Soda, Tea - Recreational Drug Use Recreational Drug Use: No ED ROS GENERAL - Review of Systems Review Of Systems: See Below Constitutional: Denies: Fever HEENT: Denies: Ear Pain Respiratory: Denies: Shortness of Breath Cardiovascular: Denies: Chest Pain GI/Abdominal: Denies: Abdominal Pain : Denies: Flank Pain Musculoskeletal: Denies: Back Pain Skin: Denies: Rash, Lesions Neurological: Denies: Headache Psychiatric: Reports: Anxiety, Depression, Mood Lability. Denies: Homicidal Ideation, Suicidal Ideation ED EXAM, BEHAVIORAL HEALTH - Physical Exam Exam: See Below Text/Narrative:: Vital signs reviewed. Nursing notes reviewed. Constitutional: Awake, alert, crying and distressed Head: Normocephalic, atraumatic. Eyes: EOMI, conjunctiva normal, no discharge, no scleral icterus. Pupils 3 mm bilaterally Ears, Nose, Throat: External ears and nose normal, moist oral mucosa. Cardiovascular: 2+ radial pulse, capillary refill less than 2 seconds. Pulmonary: normal work of breathing, no accessory muscle use. CTA BL Abdomen/GI: Nondistended Musculoskeletal: No deformities. Integumentary: Appropriate color for ethnicity, warm, dry, no pallor or jaundice, no rash. Neurologic: Alert, answering questions appropriately, normal speech, no facial droop, moving all extremities well. Psychiatric: Emotionally labile, upset, crying. Able to engage in conversation. Redirectable. EKG INTERPRETATION EKG Interpretation Comments: 12-Lead ECG Interpretation Acquired: 7:45 PM Rhythm: Sinus rhythm Rate: 74 bpm [place]: Normal Intervals: Normal Ectopy: None Ischemic Changes: None apparent RV Strain: No obvious RV strain pattern. ST Segments/T-Waves: No notable changes Interpretation: Unremarkable COURSE, BEHAVIORAL HEALTH COMP - Course Vital Signs: Last Vital Signs Temp 36.2 C 08/16/19 19:28 Pulse 77 08/16/19 19:28 Resp 16 08/16/19 21:00 BP 99/60 08/16/19 21:00 Pulse Ox 96 08/16/19 19:28 Orders, Labs, Meds: Active Orders 24 hr Category Date Time Status EKG Documentation Completion [RC] STAT Care 08/16/19 19:36 Active Laboratory Tests 08/16/19 08/16/19 08/16/19 Range/Units 19:27 19:46 19:46 WBC 8.67 (4.0-11.0) K/uL RBC 4.74 (4.30-5.90) M/uL Hgb 13.5 (12.0-16.0) g/dL Hct 41.2 (36.0-46.0) % MCV 86.9 (80.0-98.0) fL MCH 28.5 (27.0-32.0) pg MCHC 32.8 (31.0-37.0) g/dL RDW Std Deviation 47.1 (28.0-62.0) fl RDW Coeff of Maddison 15 (11.0-15.0) % Plt Count 340 (150-400) K/uL MPV 9.30 (7.40-12.00) fL Neut % (Auto) 48.4 (48.0-80.0) % Lymph % (Auto) 38.8 (16.0-40.0) % Isabela % (Auto) 10.1 (0.0-15.0) % Eos % (Auto) 2.0 (0.0-7.0) % Baso % (Auto) 0.7 (0.0-1.5) % Neut # (Auto) 4.2 (1.4-5.7) K/uL Lymph # (Auto) 3.4 H (0.6-2.4) K/uL Isabela # (Auto) 0.9 H (0.0-0.8) K/uL Eos # (Auto) 0.2 (0.0-0.7) K/uL Baso # (Auto) 0.1 (0.0-0.1) K/uL Nucleated RBC % 0.0 /100WBC Nucleated RBCs # 0 K/uL Sodium 140 (136-145) mmol/L Potassium 3.4 L (3.5-5.1) mmol/L Chloride 103 (98-107) mmol/L Carbon Dioxide 22.0 (21.0-32.0) mmol/L BUN 11 (7.0-18.0) mg/dL Creatinine 0.9 (0.6-1.0) mg/dL Est Cr Clr Drug Dosing 66.73 mL/min Estimated GFR (MDRD) > 60.0 ml/min Glucose 101 (74-106) mg/dL Calcium 8.5 (8.5-10.1) mg/dL Total Bilirubin 0.2 (0.2-1.0) mg/dL AST 29 (15-37) IU/L ALT 20 (14-63) IU/L Alkaline Phosphatase 83 (46-116) U/L Total Protein 7.3 (6.4-8.2) g/dL Albumin 3.8 (3.4-5.0) g/dL Globulin 3.5 (2.6-4.0) g/dL Albumin/Globulin Ratio 1.1 (0.9-1.6) TSH 3rd Generation 1.87 (0.36-3.74) uIU/mL HCG, Qual (NEG) Salicylates (0-20) mg/dL Urine Opiates Screen NEGATIVE (NEGATIVE) Ur Oxycodone Screen NEGATIVE (NEGATIVE) Urine Methadone Screen NEGATIVE (NEGATIVE) Acetaminophen ug/mL Ur Barbiturates Screen NEGATIVE (NEGATIVE) Ur Phencyclidine Scrn NEGATIVE (NEGATIVE) Ur Amphetamine Screen NEGATIVE (NEGATIVE) U Methamphetamines Scrn NEGATIVE (NEGATIVE) U Benzodiazepines Scrn NEGATIVE (NEGATIVE) U Cocaine Metab Screen NEGATIVE (NEGATIVE) U Marijuana (THC) Screen POSITIVE (NEGATIVE) Ethyl Alcohol 243 mg/dL 08/16/19 08/16/19 Range/Units 19:46 19:46 WBC (4.0-11.0) K/uL RBC (4.30-5.90) M/uL Hgb (12.0-16.0) g/dL Hct (36.0-46.0) % MCV (80.0-98.0) fL MCH (27.0-32.0) pg MCHC (31.0-37.0) g/dL RDW Std Deviation (28.0-62.0) fl RDW Coeff of Maddison (11.0-15.0) % Plt Count (150-400) K/uL MPV (7.40-12.00) fL Neut % (Auto) (48.0-80.0) % Lymph % (Auto) (16.0-40.0) % Isabela % (Auto) (0.0-15.0) % Eos % (Auto) (0.0-7.0) % Baso % (Auto) (0.0-1.5) % Neut # (Auto) (1.4-5.7) K/uL Lymph # (Auto) (0.6-2.4) K/uL Isabela # (Auto) (0.0-0.8) K/uL Eos # (Auto) (0.0-0.7) K/uL Baso # (Auto) (0.0-0.1) K/uL Nucleated RBC % /100WBC Nucleated RBCs # K/uL Sodium (136-145) mmol/L Potassium (3.5-5.1) mmol/L Chloride (98-107) mmol/L Carbon Dioxide (21.0-32.0) mmol/L BUN (7.0-18.0) mg/dL Creatinine (0.6-1.0) mg/dL Est Cr Clr Drug Dosing mL/min Estimated GFR (MDRD) ml/min Glucose (74-106) mg/dL Calcium (8.5-10.1) mg/dL Total Bilirubin (0.2-1.0) mg/dL AST (15-37) IU/L ALT (14-63) IU/L Alkaline Phosphatase (46-116) U/L Total Protein (6.4-8.2) g/dL Albumin (3.4-5.0) g/dL Globulin (2.6-4.0) g/dL Albumin/Globulin Ratio (0.9-1.6) TSH 3rd Generation (0.36-3.74) uIU/mL HCG, Qual NEGATIVE (NEG) Salicylates 1.7 (0-20) mg/dL Urine Opiates Screen (NEGATIVE) Ur Oxycodone Screen (NEGATIVE) Urine Methadone Screen (NEGATIVE) Acetaminophen <2.0 ug/mL Ur Barbiturates Screen (NEGATIVE) Ur Phencyclidine Scrn (NEGATIVE) Ur Amphetamine Screen (NEGATIVE) U Methamphetamines Scrn (NEGATIVE) U Benzodiazepines Scrn (NEGATIVE) U Cocaine Metab Screen (NEGATIVE) U Marijuana (THC) Screen (NEGATIVE) Ethyl Alcohol mg/dL Medications Discontinued Medications Generic Name Dose Route Start Last Admin Trade Name Freq PRN Reason Stop Dose Admin Olanzapine 10 mg 08/16/19 19:33 08/16/19 19:40 Zyprexa PO 08/16/19 19:34 10 mg ONETIME ONE Administration Discharge vs Psych Eval/Treatment:: Patient hemodynamically stable, afebrile, well-appearing, looks nontoxic. Differential diagnosis includes but is not limited to: Anxiety state, bipolar disorder, alcohol intoxication, drug use, intentional ingestion, suicide attempt, medication side effect, psychosis, etc. Patient calm and comfortable after receiving oral olanzapine. Labs look reassuring, mild hypokalemia. Negative toxicology labs including Tylenol and salicylates. Twelve-lead EKG shows normal intervals. Negative test, urine drug screen positive for THC. Ethyl alcohol elevated 243. No evidence of an acute medical emergency. No evidence of psychosis or suicide attempt. Given improvement, patient is stable to discharge home to self-care. Recommended close primary care follow-up. Strict emergency department return precautions were provided, patient indicated understanding. All questions were answered prior to departure. Discharged in good condition. Departure - Departure Time of Disposition: 20:53 Disposition: Home, Self-Care 01 Condition: Good Clinical Impression: Anxiety state, Alcohol intoxication - Discharge Information *PRESCRIPTION DRUG MONITORING PROGRAM REVIEWED*: Not Applicable *COPY OF PRESCRIPTION DRUG MONITORING REPORT IN PATIENT MICHAEL: Not Applicable Instructions: Supporting Someone With Anxiety Referrals: PCP,None [Primary Care Provider] - [facility] - [facility] [Provider Group] - 1 Week (For follow-up of symptoms and alcohol cessation counseling) Forms: ED Department Discharge Additional Instructions: Thank you for choosing the [facility] emergency department in [place] for your medical needs today. It was a pleasure caring for you. You were seen in the emergency department for anxiety symptoms. Your blood work looks reassuring and your EKG looks good. I would recommend abstaining from alcohol. You should follow-up with our family medicine clinic in the next 1 to 2 weeks for reevaluation and for alcohol cessation counseling. Please return the emergency department immediately if your symptoms worsen or if you feel worse. The following information is given to patients seen in the emergency department who are being discharged. This information is to outline your options for follow-up care. We provide all patients seen in our emergency department with a follow-up referral. The need for follow-up, as well as the timing and circumstances, are variable depending upon the specifics of your emergency department visit. If you don't have a primary care physician on staff, we will provide you with a referral. We always advise you to contact your personal physician following an emergency department visit to inform them of the circumstance of the visit and for follow-up with them and/or the need for any referrals to a consulting specialist. The emergency department will also refer you to a specialist when appropriate. This referral assures that you have the opportunity for follow-up care with a specialist. All of these measure are taken in an effort to provide you with optimal care, which includes your follow-up. Under all circumstances we always encourage you to contact your private physician who remains a resource for coordinating your care. When calling for f ollow-up care, please make the office aware that this follow-up is from your recent emergency room visit. If for any reason you are refused follow-up, please contact the [facility] Emergency Department at and asked to speak to the emergency department charge nurse. If you do not have a primary care physician that is caring for you, you can contact these clinics below to set up an appointment to establish care: [facility] - Primary Care [address] [place] [address] [facility] [address] [place] [id number] Sepsis Event Note (ED) - Evaluation Sepsis Screening Result: No Definite Risk - Focused Exam Vital Signs: Vital Signs Temp Pulse Resp BP Pulse Ox 08/16/19 21:00 16 99/60 08/16/19 19:28 36.2 C 77 24 H 121/86 96 - My Orders Last 24 Hours: My Active Orders 08/16/19 19:36 EKG Documentation Completion [RC] STAT - Assessment/Plan Last 24 Hours: My Active Orders 08/16/19 19:36 EKG Documentation Completion [RC] STAT
[2019-08-16 20:23] LABS: BLOOD UREA NITROGEN,BUN 11 mg/dL (7.0-18.0); CHLORIDE,CL 103 mmol/L (98-107); GLUCOSE RANDOM 101 mg/dL (74-106); POTASSIUM,K 3.4 mmol/L (3.5-5.1); SODIUM,NA 140 mmol/L (136-145)
[2019-08-16 20:24] LABS: ACETAMINOPHEN <2.0 ug/mL
[2019-08-16 21:07] VITALS: BP 99/60
== END 2019-08-16 21:05 | disposition home or self-care (01) ==
LOC: MW.ED 19:26
DX: F10.129 Alcohol abuse with intoxication, unspecified (principal); F41.1 Generalized anxiety disorder; F31.9 Bipolar disorder, unspecified; F17.210 Nicotine dependence, cigarettes, uncomplicated; Y90.8 Blood alcohol level of 240 mg/100 ml or more; Z79.899 Other long term (current) drug therapy
CPT/HCPCS: 36415; 80053; 80305; 80307; 84443; 84703; 85025; 93005; 99284; A9270

== ENCOUNTER 2019-08-18 12:52 | Emergency (ER) | payer SELFPAY ==
[2019-08-18] MEDS ORDERED: Sodium Chloride 0.9% 10 ML Syringe FLUSH PRN (13:12)
[2019-08-18] MEDS ORDERED: Ondansetron 4 MG/2 ML SDV IVPUSH ONE ×2 (13:12→18:19)
[2019-08-18] MEDS ORDERED: Sodium Chloride 0.9% 2.5 ML Syringe FLUSH PRN (13:12)
[2019-08-18] MEDS ORDERED: Sodium Chloride 0.9% 1,000 ML IV ONE (13:12)
--- NOTE | 2019-08-18 13:21 | EDM.PDOC ---
ED HPI GENERAL MEDICAL PROBLEM - General Stated Complaint: NAUSEA; VOMITTING Time Seen by Provider: 08/18/19 12:59 Source of Information: Reports: Patient History Limitations: Reports: No Limitations - History of Present Illness INITIAL COMMENTS - FREE TEXT/NARRATIVE: Presents via EMS with a 36-hour history of nausea and vomiting. History of bipolar disorder, asthma, anemia, and anxiety. She states over 24 hours she vomited a number of times. No diarrhea. Had a brown formed stool yesterday. Reports a lot of "acid reflux". Abdominal pain centered around the epigastric area. She did have a couple of "shots" of alcohol 24 hours ago. No blood in the vomitus. No fever, dysuria, foreign travel. Had a tubal ligation. abd pain Pain Score (Numeric/FACES): 7 - Related Data Allergies Allergy/AdvReac Type Severity Reaction Status Date / Time No Known Allergies Allergy Verified 08/18/19 13:12 Home Meds: Home Meds ARIPiprazole [Abilify] 30 mg PO DAILY 07/25/16 [History] Albuterol/Ipratropium [DuoNeb 3.0-0.5 MG/3 ML] 3 ml INH ASDIRECTED PRN 07/25/16 [History] Ciprofloxacin HCl [Cipro] 500 mg PO BID #14 tablet 08/18/19 [Rx] Esomeprazole Magnesium [Nexium 24Hr] 20 mg PO DAILY #14 capsule.dr 08/18/19 [Rx] Ondansetron [Zofran ODT] 1 tab PO Q6H PRN #4 tab.dis 08/18/19 [Rx] metroNIDAZOLE [Metronidazole] 500 mg PO BID #14 tablet 08/18/19 [Rx] Past Medical History HEENT History: Reports: Impaired 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 Cardiovascular History: Reports: None Respiratory History: Reports: Asthma Gastrointestinal History: Reports: None Genitourinary History: Reports: None [employer]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 Musculoskeletal History: Reports: None Neurological History: Reports: Alzheimers Disease, Other (See Below) Other Neuro History: son states "jerking" all her life, also questionable Alzheimers Psychiatric History: Reports: Anxiety, Bipolar, Depression, Emotional Problems, Mood Swings, PTSD Other Psychiatric History: On meds, has not taken them for about 8 months Endocrine/Metabolic History: Reports: None Hematologic History: Reports: Anemia Immunologic History: Reports: None Oncologic (Cancer) History: Reports: None Dermatologic History: Reports: None - Infectious Disease History Infectious Disease History: Reports: None - Past Surgical History Head Surgeries/Procedures: Reports: None Female Surgical History: Reports: Tubal Ligation Social & Family History - Family History Family Medical History: Noncontributory - Caffeine Use Caffeine Use: Reports: Coffee, Soda, Tea ED ROS GENERAL - Review of Systems Review Of Systems: Comprehensive ROS is negative, except as noted in HPI. ED EXAM, GI/ABD - Physical Exam Exam: See Below Exam Limited By: No Limitations General Appearance: Alert, No Apparent Distress Ears: Normal External Exam Nose: Normal Inspection Throat/Mouth: Normal Inspection Head: Atraumatic, Normocephalic Neck: Normal Inspection Respiratory/Chest: No Respiratory Distress, Lungs Clear, Normal Breath Sounds Cardiovascular: Normal Peripheral Pulses, Regular Rate, Rhythm, No Murmur GI/Abdominal Exam: Soft, No Distention, Tender (epigastric) (Female) Exam: Normal External Exam Rectal (Female) Exam: Normal Exam Back Exam: Normal Inspection Extremities: Normal Inspection Neurological: Alert, Oriented Psychiatric: Normal Affect, Normal Mood Skin Exam: Warm, Dry, Intact, Normal Color, No Rash Lymphatic: No Adenopathy Course - Vital Signs Last Recorded V/S: Last Vital Signs Temp 35.9 C L 08/18/19 13:04 Pulse 66 08/18/19 13:04 Resp 16 08/18/19 13:04 BP 137/105 H 08/18/19 13:04 Pulse Ox 99 08/18/19 13:04 - Orders/Labs/Meds Orders: Active Orders 24 hr Category Date Time Status Sodium Chloride 0.9% [Saline Flush] Med 08/18/19 13:12 Ordered 10 ml FLUSH ASDIRECTED PRN Sodium Chloride 0.9% [Saline Flush] Med 08/18/19 13:12 Ordered 2.5 ml FLUSH ASDIRECTED PRN Saline Lock Insert [OM.PC] Stat Oth 08/18/19 13:12 Ordered Medication Orders Sodium Chloride (Saline Flush) 10 ml FLUSH ASDIRECTED PRN PRN Reason: Keep Vein Open Last Admin: 08/18/19 13:23 Dose: 10 ml Documented by: MAURA Sodium Chloride (Saline Flush) 2.5 ml FLUSH ASDIRECTED PRN PRN Reason: Keep Vein Open Last Admin: 08/18/19 13:23 Dose: 2.5 ml Documented by: MAURA Labs: Laboratory Tests 08/18/19 08/18/19 08/18/19 Range/Units 13:19 13:19 13:21 WBC 16.88 H (4.0-11.0) K/uL RBC 5.03 (4.30-5.90) M/uL Hgb 14.6 (12.0-16.0) g/dL Hct 44.1 (36.0-46.0) % MCV 87.7 (80.0-98.0) fL MCH 29.0 (27.0-32.0) pg MCHC 33.1 (31.0-37.0) g/dL RDW Std Deviation 48.8 (28.0-62.0) fl RDW Coeff of Maddison 15 (11.0-15.0) % Plt Count 370 (150-400) K/uL MPV 10.10 (7.40-12.00) fL Neut % (Auto) 85.9 H (48.0-80.0) % Lymph % (Auto) 8.3 L (16.0-40.0) % Greene % (Auto) 5.7 (0.0-15.0) % Eos % (Auto) 0.0 (0.0-7.0) % Baso % (Auto) 0.1 (0.0-1.5) % Neut # (Auto) 14.5 H (1.4-5.7) K/uL Lymph # (Auto) 1.4 (0.6-2.4) K/uL Greene # (Auto) 1.0 H (0.0-0.8) K/uL Eos # (Auto) 0.0 (0.0-0.7) K/uL Baso # (Auto) 0.0 (0.0-0.1) K/uL Nucleated RBC % 0.0 /100WBC Nucleated RBCs # 0 K/uL Sodium (136-145) mmol/L Potassium (3.5-5.1) mmol/L Chloride (98-107) mmol/L Carbon Dioxide (21.0-32.0) mmol/L BUN (7.0-18.0) mg/dL Creatinine (0.6-1.0) mg/dL Est Cr Clr Drug Dosing mL/min Estimated GFR (MDRD) ml/min Glucose (74-106) mg/dL Calcium (8.5-10.1) mg/dL Total Bilirubin (0.2-1.0) mg/dL AST (15-37) IU/L ALT (14-63) IU/L Alkaline Phosphatase (46-116) U/L Total Protein (6.4-8.2) g/dL Albumin (3.4-5.0) g/dL Globulin (2.6-4.0) g/dL Albumin/Globulin Ratio (0.9-1.6) Amylase (25-115) U/L Lipase (73-393) U/L Urine Color YELLOW Urine Appearance CLEAR Urine pH 6.5 (5.0-8.0) Ur Specific Crawford 1.025 (1.001-1.035) Urine Protein TRACE H (NEGATIVE) mg/dL Urine Glucose (UA) NEGATIVE (NEGATIVE) mg/dL Urine Ketones NEGATIVE (NEGATIVE) mg/dL Urine Occult Blood SMALL H (NEGATIVE) Urine Nitrite NEGATIVE (NEGATIVE) Urine Bilirubin NEGATIVE (NEGATIVE) Urine Urobilinogen 0.2 (<2.0) EU/dL Ur Leukocyte Esterase SMALL H (NEGATIVE) Urine RBC 1-2 (0-2/HPF) Urine WBC 1-2 (0-5/HPF) Ur Epithelial Cells OCCASIONAL (NONE-FEW) Urine Bacteria RARE (NEGATIVE) Urine Opiates Screen NEGATIVE (NEGATIVE) Ur Oxycodone Screen NEGATIVE (NEGATIVE) Urine Methadone Screen NEGATIVE (NEGATIVE) Ur Barbiturates Screen NEGATIVE (NEGATIVE) Ur Phencyclidine Scrn NEGATIVE (NEGATIVE) Ur Amphetamine Screen NEGATIVE (NEGATIVE) U Methamphetamines Scrn NEGATIVE (NEGATIVE) U Benzodiazepines Scrn NEGATIVE (NEGATIVE) U Cocaine Metab Screen NEGATIVE (NEGATIVE) U Marijuana (THC) Screen NEGATIVE (NEGATIVE) Ethyl Alcohol mg/dL 08/18/19 08/18/19 Range/Units 13:21 13:21 WBC (4.0-11.0) K/uL RBC (4.30-5.90) M/uL Hgb (12.0-16.0) g/dL Hct (36.0-46.0) % MCV (80.0-98.0) fL MCH (27.0-32.0) pg MCHC (31.0-37.0) g/dL RDW Std Deviation (28.0-62.0) fl RDW Coeff of Maddison (11.0-15.0) % Plt Count (150-400) K/uL MPV (7.40-12.00) fL Neut % (Auto) (48.0-80.0) % Lymph % (Auto) (16.0-40.0) % Greene % (Auto) (0.0-15.0) % Eos % (Auto) (0.0-7.0) % Baso % (Auto) (0.0-1.5) % Neut # (Auto) (1.4-5.7) K/uL Lymph # (Auto) (0.6-2.4) K/uL Greene # (Auto) (0.0-0.8) K/uL Eos # (Auto) (0.0-0.7) K/uL Baso # (Auto) (0.0-0.1) K/uL Nucleated RBC % /100WBC Nucleated RBCs # K/uL Sodium 138 (136-145) mmol/L Potassium 3.9 (3.5-5.1) mmol/L Chloride 99 (98-107) mmol/L Carbon Dioxide 26.9 (21.0-32.0) mmol/L BUN 16 (7.0-18.0) mg/dL Creatinine 1.2 H (0.6-1.0) mg/dL Est Cr Clr Drug Dosing 50.05 mL/min Estimated GFR (MDRD) 58.4 ml/min Glucose 141 H (74-106) mg/dL Calcium 9.4 (8.5-10.1) mg/dL Total Bilirubin 0.5 (0.2-1.0) mg/dL AST 27 (15-37) IU/L ALT 26 (14-63) IU/L Alkaline Phosphatase 90 (46-116) U/L Total Protein 8.2 (6.4-8.2) g/dL Albumin 4.0 (3.4-5.0) g/dL Globulin 4.2 H (2.6-4.0) g/dL Albumin/Globulin Ratio 1.0 (0.9-1.6) Amylase 70 (25-115) U/L Lipase 50 L (73-393) U/L Urine Color Urine Appearance Urine pH (5.0-8.0) Ur Specific Crawford (1.001-1.035) Urine Protein (NEGATIVE) mg/dL Urine Glucose (UA) (NEGATIVE) mg/dL Urine Ketones (NEGATIVE) mg/dL Urine Occult Blood (NEGATIVE) Urine Nitrite (NEGATIVE) Urine Bilirubin (NEGATIVE) Urine Urobilinogen (<2.0) EU/dL Ur Leukocyte Esterase (NEGATIVE) Urine RBC (0-2/HPF) Urine WBC (0-5/HPF) Ur Epithelial Cells (NONE-FEW) Urine Bacteria (NEGATIVE) Urine Opiates Screen (NEGATIVE) Ur Oxycodone Screen (NEGATIVE) Urine Methadone Screen (NEGATIVE) Ur Barbiturates Screen (NEGATIVE) Ur Phencyclidine Scrn (NEGATIVE) Ur Amphetamine Screen (NEGATIVE) U Methamphetamines Scrn (NEGATIVE) U Benzodiazepines Scrn (NEGATIVE) U Cocaine Metab Screen (NEGATIVE) U Marijuana (THC) Screen (NEGATIVE) Ethyl Alcohol <3 mg/dL Meds: Medications Generic Name Dose Route Start Last Admin Trade Name Freq PRN Reason Stop Dose Admin Sodium Chloride 10 ml 08/18/19 13:12 08/18/19 13:23 Saline Flush FLUSH 10 ml ASDIRECTED PRN Administration Keep Vein Open Sodium Chloride 2.5 ml 08/18/19 13:12 08/18/19 13:23 Saline Flush FLUSH 2.5 ml ASDIRECTED PRN Administration Keep Vein Open Discontinued Medications Generic Name Dose Route Start Last Admin Trade Name Freq PRN Reason Stop Dose Admin Sodium Chloride 1,000 mls @ 999 mls/hr 08/18/19 13:12 08/18/19 13:25 Normal Saline IV 08/18/19 14:12 999 mls/hr .Bolus ONE Administration Ondansetron HCl 4 mg 08/18/19 13:12 08/18/19 13:23 Zofran IVPUSH 08/18/19 13:13 4 mg ONETIME ONE Administration Departure - Departure Time of Disposition: 16:32 Disposition: Home, Self-Care 01 Condition: Good Clinical Impression: Gastritis and duodenitis - Discharge Information Referrals: PCP,Unknown [Primary Care Provider] - [facility] [Outside] [facility] [Outside] Additional Instructions: The following information is given to patients seen in the emergency department who are being discharged to home. This information is to outline your options for follow-up care. We provide all patients seen in our emergency department with a follow-up referral. The need for follow-up, as well as the timing and circumstances, are variable depending upon the specifics of your emergency department visit. If you don't have a primary care physician on staff, we will provide you with a referral. We always advise you to contact your personal physician following an emergency department visit to inform them of the circumstance of the visit and for follow-up with them and/or the need for any referrals to a consulting specialist. The emergency department will also refer you to a specialist when appropriate. This referral assures that you have the opportunity for follow-up care with a specialist. All of these measure are taken in an effort to provide you with optimal care, which includes your follow-up. Under all circumstances we always encourage you to contact your private physician who remains a resource for coordinating your care. When calling for follow-up care, please make the office aware that this follow-up is from your recent emergency room visit. If for any reason you are refused follow-up, please contact the [facility] Emergency Department at and asked to speak to the emergency department charge nurse. 1. Take your antibiotics twice daily with food. 2. Take your Nexium which is for acid reflux, once daily 30 minutes before breakfast with water 3. Follow-up in primary care. Take a stool specimen with you in the container provided. 4. Zofran every 6 hours as needed for vomiting 5. Return for fevers, breathing problems, vomiting and not keeping down oral fluids, new or worsening abdominal pain. Sepsis Event Note (ED) - Focused Exam Vital Signs: Vital Signs Temp Pulse Resp BP Pulse Ox 08/18/19 13:04 35.9 C L 66 16 137/105 H 99 - My Orders Last 24 Hours: My Active Orders 08/18/19 13:12 Sodium Chloride 0.9% [Saline Flush] 10 ml FLUSH ASDIRECTED PRN Sodium Chloride 0.9% [Saline Flush] 2.5 ml FLUSH ASDIRECTED PRN Saline Lock Insert [OM.PC] Stat - Assessment/Plan Last 24 Hours: My Active Orders 08/18/19 13:12 Sodium Chloride 0.9% [Saline Flush] 10 ml FLUSH ASDIRECTED PRN Sodium Chloride 0.9% [Saline Flush] 2.5 ml FLUSH ASDIRECTED PRN Saline Lock Insert [OM.PC] Stat
[2019-08-18 13:54] LABS: CARBON DIOXIDE,CO2 26.9 mmol/L (21.0-32.0); POTASSIUM,K 3.9 mmol/L (3.5-5.1)
--- NOTE | 2019-08-18 15:25 | CT ---
CT abdomen and pelvis Technique: Multiple axial sections were obtained from above the dome of the diaphragm inferiorly through the pubic symphysis. Intravenous and oral contrast was not utilized. Comparison: No prior abdominal imaging is available. Findings: Visualized lung bases show nothing acute. Noncontrast appearance of the liver shows no discrete abnormality. Gallbladder contains no calcified gallstones. Spleen size is normal. Kidneys show no abnormal calcifications or hydronephrosis. Pancreas shows no discrete abnormality. Aorta shows no aneurysm. No retroperitoneal adenopathy or mesenteric abnormalities are appreciated. Appendix is visualized and appears to be normal in size. There is free fluid being seen within the pelvis. This most likely represents follicle or nonvisualized cyst rupture. No additional pelvic abnormality is appreciated. Bone window settings were reviewed which shows mild degenerative change scattered within the spine. No acute osseous finding is appreciated. Impression: 1. Free fluid within the pelvis either due to follicle rupture or nonvisualized cyst rupture. 2. No acute abnormality is otherwise seen on noncontrast CT study of the abdomen and pelvis. Diagnostic code #2 This report was dictated in MDT
[2019-08-18] MEDS ORDERED: metroNIDAZOLE/Normal Saline 500 MG in Premix Bag 1 BAG IV ONE (15:46)
[2019-08-18] MEDS ORDERED: Pantoprazole 80 MG in Sodium Chloride 0.9% 20 ML IVPUSH ONE (15:50)
[2019-08-18] MEDS ORDERED: Ciprofloxacin in D5W 400 MG in Premix Bag 1 BAG IV SCH ×2 (16:00)
[2019-08-18] MEDS ORDERED: Sodium Chloride 0.9% 1,000 ML IV SCH (16:00)
[2019-08-18] MEDS ORDERED: Alum Hydrox/Mag Hydrox/Simeth 15 ML, Metoclopramide 5 MG, Lidocaine 2% 5 ML PO ONE ×3 (17:23)
[2019-08-18 19:20] VITALS: BP 138/83; PULSE 55
== END 2019-08-18 19:00 | disposition home or self-care (01) ==
LOC: MW.ED 12:52
DX: K29.70 Gastritis, unspecified, without bleeding (principal); K29.80 Duodenitis without bleeding; J45.909 Unspecified asthma, uncomplicated; F31.9 Bipolar disorder, unspecified; G30.9 Alzheimer's disease, unspecified; F02.80 Dementia in other diseases classified elsewhere, unspecified severity, without behavioral disturbance, psychotic disturbance, mood disturbance, and anxiety; Z79.899 Other long term (current) drug therapy
CPT/HCPCS: 36415; 74176; 80053; 80305; 80307; 81001; 82150; 83690; 85025; 96361; 96365; 96366; 96367; 96375; 96376; 99284; A9270; C9113; J0744; J2405; J3490; J7030; 99283

== ENCOUNTER 2020-02-12 22:21 | Emergency (ER) | payer MEDICAID ==
[2020-02-12] MEDS ORDERED: Albuterol/Ipratropium 3.0-0.5 MG/3 ML Neb Soln ONE (22:30)
[2020-02-12] MEDS ORDERED: Ketorolac 15 MG/ML SDV IVPUSH ONE (22:34)
[2020-02-12] MEDS ORDERED: Albuterol/Ipratropium 3.0-0.5 MG/3 ML Neb Soln NEB ONE (22:34)
[2020-02-12] MEDS ORDERED: Sodium Chloride 0.9% 1,000 ML IV ONE (22:34)
[2020-02-12] MEDS ORDERED: Sodium Chloride 0.9% 2.5 ML Syringe FLUSH PRN (22:34)
[2020-02-12] MEDS ORDERED: methylPREDNISolone Sodium Succinate 125 MG/2 ML SDV IVPUSH ONE (22:34)
[2020-02-12] MEDS ORDERED: Sodium Chloride 0.9% 10 ML Syringe FLUSH PRN (22:34)
[2020-02-12 22:35] VITALS: BP 146/98
[2020-02-12 22:56] LABS: BLOOD UREA NITROGEN,BUN 15 mg/dL (7.0-18.0); CARBON DIOXIDE,CO2 21.1 mmol/L (21.0-32.0); CHLORIDE,CL 104 mmol/L (98-107); GLUCOSE RANDOM 96 mg/dL (74-106); POTASSIUM,K 4.1 mmol/L (3.5-5.1); SODIUM,NA 136 mmol/L (136-145)
--- NOTE | 2020-02-12 22:59 | EDM.PDOC ---
ED HPI GENERAL MEDICAL PROBLEM - General Chief Complaint: Respiratory Problem Stated Complaint: SICK Time Seen by Provider: 02/12/20 22:29 - History of Present Illness INITIAL COMMENTS - FREE TEXT/NARRATIVE: HISTORY AND PHYSICAL: History of present illness: This is a 49-year-old female with a history significant for asthma who presents ER today complaining of shortness of breath that started acutely while she was horsing around and playing on the ground. Patient reports that she has had multiple asthma exacerbations with identical symptoms in the past and has never required admission to the hospital for endotracheal intubation. Patient reports that last time she was admitted to the hospital for asthma exacerbation was quite some time ago. Patient reports she had some URI symptoms with cough and congestion. Patient denies any recent fevers, shakes, chills, nausea, vomiting, diarrhea, dysuria, frequency, urgency, abdominal pain. Patient reports she does have discomfort in her chest with deep inspiration and coughing. Patient reports that she had a nonproductive cough with rhinorrhea. Patient reports that she has utilized her albuterol MDI without any significant relief in her shortness of breath. Review of systems: As per history of present illness and below otherwise all systems reviewed and negative. Past medical history: As per history of present illness and as reviewed below otherwise noncontr ibutory. Surgical history: As per history of present illness and as reviewed below otherwise noncontributory. Social history: No reported history of drug or alcohol abuse. Family history: As per history of present illness and as reviewed below otherwise noncontributory. Physical exam: Constitutional: Patient is oriented to person, place, and time. Appears well- developed and well-nourished. No distress. HEENT: Moist mucous membranes Head: Normocephalic and atraumatic Eyes: Right eye exhibits no discharge. Left eye exhibits no discharge. No scleral icterus Neck: Normal range of motion. No tracheal deviation present. Cardiovascular: Normal rate and regular rhythm. Pulmonary: Patient is extremely tachypneic with what appears to be a moderate degree of anxiety. Patient's lungs are clear with minimal amounts of end expiratory wheezing. No rales or rhonchi. Abdominal: No distention Musculoskeletal: Normal range of motion Neurologic: Alert and oriented to person, place and time. Skin: Myra, warm and dry. Psychiatric: Normal mood and affect. Behavior is normal. Judgment and thought content normal. Nursing note and vital signs have been reviewed This patient was seen and evaluated during the 2019 SARS-CoV-2 novel coronavirus pandemic period. Community viral transmission is ongoing at time of this encounter and the emergency department is operating under pandemic response procedures. Diagnostics: Chest Xray: Normal cardiac silhouette No infiltrates or effusions identified. No PTX No evidence of acute bony fracture. As interpreted by ER MD: Yudy EKG: As interpreted by ER physician: Yudy: Nonspecific ST-T wave abnormalities Normal axis No evidence of ST elevation NE Normal sinus rhythm heart rate of 83 Labs within normal limits with a normal D-dimer. 49-year-old female with history seen for asthma presents ER today secondary to shortness of breath and asthma exacerbation during exertion. In the ED patient did receive Solu-Medrol as well as a DuoNeb and she feels much improved. Patient is ambulating the ED without any shortness of breath. Patient's pulse ox is maintained 97 200% while in the ED. Patient's lung exam had some minimal end expiratory wheezing but other than that no acute respiratory distress. Patient feels much improved and is ambulating currently and is currently at baseline. Reassessment at the time of disposition demonstrates that the patient is in no acute distress. The patient has remained stable throughout the entire ED visit and is without objective evidence for acute process requiring urgent intervention or hospitalization. The patient is stable for discharge, counseling is provided as documented above, discussed symptomatic treatment and specific conditions for return. I have spoken with the patient/caregiver and discussed todays findings, in addition to providing specific details for the plan of care. Questions are answered and there is agreement with the plan. Definitive disposition and diagnosis as appropriate pending reevaluation and review of above. 7:42 PM August 12, 2020. Follow-up phone call made to assure patient improving. Patient was not available in the phone but her significant other was. He reports that she feels significantly improved and has not filled her prescription yet. I have encouraged him to call the pharmacy tomorrow as they have normal hours tomorrow to get her prescriptions filled. Upper Chest Pain Score (Numeric/FACES): 6 - Related Data Allergies Allergy/AdvReac Type Severity Reaction Status Date / Time No Known Allergies Allergy Verified 08/18/19 13:12 Home Meds: Home Meds ARIPiprazole [Abilify] 30 mg PO DAILY 07/25/16 [History] Albuterol/Ipratropium [DuoNeb 3.0-0.5 MG/3 ML] 3 ml INH ASDIRECTED PRN 07/25/16 [History] Esomeprazole Magnesium [Nexium 24Hr] 20 mg PO DAILY #14 capsule.dr 08/18/19 [Rx] Ondansetron [Zofran ODT] 1 tab PO Q6H PRN #4 tab.dis 08/18/19 [Rx] Albuterol Sulfate [Albuterol Sulfate Hfa] 18 gm IH QID PRN #1 hfa.aer.ad 02/12/20 [Rx] predniSONE [Prednisone] 50 mg PO DAILY #5 tablet 02/12/20 [Rx] Past Medical History HEENT History: Reports: Impaired 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 Cardiovascular History: Reports: None Respiratory History: Reports: Asthma Gastrointestinal History: Reports: None Genitourinary History: Reports: None [employer] History: Reports: None Musculoskeletal History: Reports: None Neurological History: Reports: Alzheimers Disease, Other (See Below) Other Neuro History: son states "jerking" all her life, also questionable Alzheimers Psychiatric History: Reports: Anxiety, Bipolar, Depression, Emotional Problems, Mood Swings, PTSD Other Psychiatric History: On meds, has not taken them for about 8 months Endocrine/Metabolic History: Reports: None Hematologic History: Reports: Anemia Immunologic History: Reports: None Oncologic (Cancer) History: Reports: None Dermatologic History: Reports: None - Infectious Disease History Infectious Disease History: Reports: None - Past Surgical History Head Surgeries/Procedures: Reports: None Female Surgical History: Reports: Tubal Ligation Social & Family History - Family History Family Medical History: No Pertinent Family History - Caffeine Use Caffeine Use: Reports: Coffee, Soda, Tea - Recreational Drug Use Recreational Drug Use: No ED ROS GENERAL - Review of Systems Review Of Systems: See Below ED EXAM, GENERAL - Physical Exam Exam: See Below #1 Interpretation EKG Interpretation Comments: EKG: As interpreted by ER physician: Yudy: Nonspecific ST-T wave abnormalities Normal axis No evidence of ST elevation NE Normal sinus rhythm heart rate of 84 Course - Vital Signs Last Recorded V/S: Last Vital Signs Temp 98.2 F 02/12/20 22:32 Pulse 78 02/13/20 00:05 Resp 18 02/13/20 00:05 BP 146/98 H 02/13/20 00:05 Pulse Ox 96 02/13/20 00:05 - Orders/Labs/Meds Orders: Active Orders 24 hr Category Date Time Status Saline Lock Insert [OM.PC] Stat Oth 02/12/20 22:34 Ordered Labs: Laboratory Tests 02/12/20 02/12/20 02/12/20 Range/Units 22:25 22:25 22:25 WBC 12.00 H (4.0-11.0) K/uL RBC 4.63 (4.30-5.90) M/uL Hgb 13.6 (12.0-16.0) g/dL Hct 41.1 (36.0-46.0) % MCV 88.8 (80.0-98.0) fL MCH 29.4 (27.0-32.0) pg MCHC 33.1 (31.0-37.0) g/dL RDW Std Deviation 47.1 (28.0-62.0) fl RDW Coeff of Maddison 15 (11.0-15.0) % Plt Count 314 (150-400) K/uL MPV 9.40 (7.40-12.00) fL Neut % (Auto) 47.4 L (48.0-80.0) % Lymph % (Auto) 39.3 (16.0-40.0) % Kingfisher % (Auto) 10.9 (0.0-15.0) % Eos % (Auto) 1.8 (0.0-7.0) % Baso % (Auto) 0.6 (0.0-1.5) % Neut # (Auto) 5.7 (1.4-5.7) K/uL Lymph # (Auto) 4.7 H (0.6-2.4) K/uL King[place]isher # (Auto) 1.3 H (0.0-0.8) K/uL Eos # (Auto) 0.2 (0.0-0.7) K/uL Baso # (Auto) 0.1 (0.0-0.1) K/uL Nucleated RBC % 0.0 /100WBC Nucleated RBCs # 0 K/uL D-Dimer, Quantitative 0.32 (0.0-0.50) mg/L FEU Sodium 136 (136-145) mmol/L Potassium 4.1 (3.5-5.1) mmol/L Chloride 104 (98-107) mmol/L Carbon Dioxide 21.1 (21.0-32.0) mmol/L BUN 15 (7.0-18.0) mg/dL Creatinine 1.0 (0.6-1.0) mg/dL Est Cr Clr Drug Dosing TNP Estimated GFR (MDRD) > 60.0 ml/min Glucose 96 (74-106) mg/dL Calcium 8.8 (8.5-10.1) mg/dL Total Bilirubin 0.2 (0.2-1.0) mg/dL AST 15 (15-37) IU/L ALT 18 (14-63) IU/L Alkaline Phosphatase 102 (46-116) U/L Troponin I < 0.050 (0.000-0.056) ng/mL B-Natriuretic Peptide (<100) PG/ML Total Protein 7.6 (6.4-8.2) g/dL Albumin 3.6 (3.4-5.0) g/dL Globulin 4.0 (2.6-4.0) g/dL Albumin/Globulin Ratio 0.9 (0.9-1.6) Influenza Type A RNA (NEGATIVE) Influenza Type B RNA (NEGATIVE) SARS-CoV-2 RNA (KIM) (NEGATIVE) 02/12/20 02/12/20 Range/Units 22:25 23:05 WBC (4.0-11.0) K/uL RBC (4.30-5.90) M/uL Hgb (12.0-16.0) g/dL Hct (36.0-46.0) % MCV (80.0-98.0) fL MCH (27.0-32.0) pg MCHC (31.0-37.0) g/dL RDW Std Deviation (28.0-62.0) fl RDW Coeff of Maddison (11.0-15.0) % Plt Count (150-400) K/uL MPV (7.40-12.00) fL Neut % (Auto) (48.0-80.0) % Lymph % (Auto) (16.0-40.0) % Kingfisher % (Auto) (0.0-15.0) % Eos % (Auto) (0.0-7.0) % Baso % (Auto) (0.0-1.5) % Neut # (Auto) (1.4-5.7) K/uL Lymph # (Auto) (0.6-2.4) K/uL Kingfisher # (Auto) (0.0-0.8) K/uL Eos # (Auto) (0.0-0.7) K/uL Baso # (Auto) (0.0-0.1) K/uL Nucleated RBC % /100WBC Nucleated RBCs # K/uL D-Dimer, Quantitative (0.0-0.50) mg/L FEU Sodium (136-145) mmol/L Potassium (3.5-5.1) mmol/L Chloride (98-107) mmol/L Carbon Dioxide (21.0-32.0) mmol/L BUN (7.0-18.0) mg/dL Creatinine (0.6-1.0) mg/dL Est Cr Clr Drug Dosing Estimated GFR (MDRD) ml/min Glucose (74-106) mg/dL Calcium (8.5-10.1) mg/dL Total Bilirubin (0.2-1.0) mg/dL AST (15-37) IU/L ALT (14-63) IU/L Alkaline Phosphatase (46-116) U/L Troponin I (0.000-0.056) ng/mL B-Natriuretic Peptide 6 (<100) PG/ML Total Protein (6.4-8.2) g/dL Albumin (3.4-5.0) g/dL Globulin (2.6-4.0) g/dL Albumin/Globulin Ratio (0.9-1.6) Influenza Type A RNA NEGATIVE (NEGATIVE) Influenza Type B RNA NEGATIVE (NEGATIVE) SARS-CoV-2 RNA (KIM) NEGATIVE (NEGATIVE) Meds: Medications Discontinued Medications Generic Name Dose Route Start Last Admin Trade Name Freq PRN Reason Stop Dose Admin Albuterol/Ipratropium Confirm 02/12/20 22:30 02/12/20 22:35 Duoneb 3.0-0.5 Mg/3 Ml Administered 02/12/20 22:31 3 ml Dose Administration 3 ml .ROUTE .STK-MED ONE Albuterol/Ipratropium 3 ml 02/12/20 22:34 02/12/20 22:47 Duoneb 3.0-0.5 Mg/3 Ml NEB 02/12/20 22:35 3 ml ONETIME ONE Administration Sodium Chloride 1,000 mls @ 999 mls/hr 02/12/20 22:34 02/12/20 22:46 Normal Saline IV 02/12/20 23:34 999 mls/hr .Bolus ONE Administration Ketorolac Tromethamine 15 mg 02/12/20 22:34 02/12/20 22:47 Toradol IVPUSH 02/12/20 22:35 15 mg ONETIME ONE Administration Methylprednisolone Sodium Succinate 125 mg 02/12/20 22:34 02/12/20 22:47 Solu-Medrol IVPUSH 02/12/20 22:35 125 mg ONETIME ONE Administration Sodium Chloride 10 ml 02/12/20 22:34 02/12/20 22:47 Saline Flush FLUSH 10 ml ASDIRECTED PRN Administration Keep Vein Open Sodium Chloride 2.5 ml 02/12/20 22:34 02/12/20 22:47 Saline Flush FLUSH 2.5 ml ASDIRECTED PRN Administration Keep Vein Open Departure - Departure Time of Disposition: 23:55 Disposition: Home, Self-Care 01 Condition: Good Clinical Impression: Acute asthma exacerbation Qualifiers: Asthma severity: mild Asthma persistence: unspecified Qualified Code(s): J45.901 - Unspecified asthma with (acute) exacerbation - Discharge Information Prescriptions: Albuterol Sulfate [Albuterol Sulfate Hfa] 18 gm IH QID PRN #1 hfa.aer.ad PRN Reason: Dyspnea predniSONE [Prednisone] 50 mg PO DAILY #5 tablet Instructions: Asthma Attack Referrals: PCP,None [Primary Care Provider] - Forms: ED Department Discharge Sepsis Event Note (ED) - Evaluation Sepsis Screening Result: No Definite Risk - My Orders Last 24 Hours: My Active Orders 02/12/20 22:34 Saline Lock Insert [OM.PC] Stat - Assessment/Plan Last 24 Hours: My Active Orders 02/12/20 22:34 Saline Lock Insert [OM.PC] Stat
--- NOTE | 2020-02-12 23:17 | CR ---
INDICATION: Shortness of breath TECHNIQUE: Chest radiograph 1 view COMPARISON: None FINDINGS: Moderate degradation of image quality noted due to lilly habitus. Mediastinum: The mediastinum is normal in appearance. The heart silhouette is normal in size and morphology. Lung: Both lungs are unremarkable in appearance. No sign of pleural effusion seen. No pneumothorax is identified. Bone and Soft tissue: Unremarkable for age. IMPRESSION: 1. No acute cardiopulmonary disease is seen. Dictated by: Braydon Lazaro MD @ 02/12/2020 23:15:02 (Electronically Signed)
[2020-02-12 23:56] LABS: CORONAVIRUS COVID-19 NAA NEGATIVE (NEGATIVE); INFLUENZA A NAA NEGATIVE (NEGATIVE); INFLUENZA B NAA NEGATIVE (NEGATIVE)
[2020-02-13 00:11] VITALS: PULSE 78
== END 2020-02-13 00:08 | disposition home or self-care (01) ==
LOC: MW.ED 22:21
DX: J45.901 Unspecified asthma with (acute) exacerbation (principal); F41.9 Anxiety disorder, unspecified; F31.9 Bipolar disorder, unspecified; Z98.51 Tubal ligation status; Z20.822 Contact with and (suspected) exposure to COVID-19; Z79.899 Other long term (current) drug therapy
CPT/HCPCS: 0240U; 36415; 71045; 80053; 83880; 84484; 85025; 85379; 93005; 96374; 96375; 99285; J1885; J2930; J7030; 93010; 99283; J7620-GY

== ENCOUNTER 2020-07-01 10:07 | Emergency (ER) | payer MEDICAID ==
--- NOTE | 2020-07-01 10:14 | EDM.PDOC ---
ED HPI GENERAL MEDICAL PROBLEM - General Time Seen by Provider: 07/01/20 10:13 Source of Information: Reports: Patient History Limitations: Reports: No Limitations - History of Present Illness INITIAL COMMENTS - FREE TEXT/NARRATIVE: HISTORY AND PHYSICAL: History of present illness: The patient is a 49-year-old female that presents to the emergency room with complaints of vomiting and diarrhea that started on Saturday of this week. The patient reports she has occasional cramping but none at this time. She states that she does have episodes of diaphoresis and chills. She states that this happened 2 times last night. She reports that she does have chest pain, but not all the time and is unsure if this is attributed to her asthma. Patient states she has not taken her rescue inhaler in over 2 weeks, however, she does use her nighttime nebulizer 2-3 times per week for the last 3 weeks. The patient does have history of heartburn but states that she is unable to get anybody to prescribe her anything for the heartburn. She does not presently take anything [id number]. The patient was tested for COVID-19 2 months ago which was negative. Patient denies any headache, change in vision, syncope or near syncope. Denies any back pain, shortness of breath or cough. Denies any abdominal pain, constipation or dysuria. Has not noted any blood in urine or stool. Until today the patient had been eating and drinking appropriately. In the emergency room the patient is hemodynamically stable with a blood pressure of 106/71 and a heart rate of 69. The patient is afebrile with a temperature of 97.2. Review of systems: As per history of present illness and below otherwise all systems reviewed and negative. Past medical history: As per history of present illness and as reviewed below otherwise noncontributo ry. Surgical history: As per history of present illness and as reviewed below otherwise noncontributory. Social history: See social history for further information Family history: As per history of present illness and as reviewed below otherwise noncontributory. Physical exam: General: Well developed and well nourished. Alert and orientated x 3. Nontoxic in appearance and in no acute distress. Vital signs are stable and have been reviewed by me. Nursing notes were reviewed. HEENT: Atraumatic, normocephalic, pupils equal and reactive bilaterally, Left eye amblyopia, negative for conjunctival pallor or scleral icterus, mucous membranes moist, TMs normal bilaterally, throat clear, neck supple, nontender, trachea midline. No drooling or trismus noted. No meningeal signs. No hot potato voice noted. Lungs: Clear to auscultation bilaterally. No wheezes, rales, or rhonchi. Chest nontender. Normal work of breathing, no accessory muscles used. Heart: S1S2, regular rate and rhythm without overt murmur, gallops, or rubs. No JVD. No peripheral edema Abdomen: Soft, nondistended, nontender. Normoactive bowel sounds. Negative for masses or costovertebral tenderness. Skin: Intact, warm, dry. No lesions or rashes noted. Hematologic: No petechiae or purpra. Mucosa appropriate color and normal nail bed color and refill. Extremities: Atraumatic, moves all extremities per self without difficulty or deficits, negative for cords or calf pain. Neurovascular unremarkable. Neuro: Awake, alert, oriented. Cranial nerves II through XII unremarkable. Cerebellum unremarkable. Motor and sensory unremarkable throughout. Exam nonfocal. Psychiatric: Mood and affect are appropriate. Normal thought process. Answering questions appropriately. Notes: *This patient was seen and evaluated during the 2019 SARS-CoV-2 novel coronavirus pandemic period. Community viral transmission is ongoing at time of this encounter and the emergency department is operating under pandemic response procedures. After examination and discussion the patient is agreeable to lab work, EKG, chest x-ray, IV fluids for hydration and Zofran for her nausea. The patient complains of nausea and vomiting for 3 days but her exam is essentially normal. She denies any abdominal pain or cramping at this time. She does state that she has intermittent chest pain and as such I will order an EKG and troponin. The patient does have left eye amblyopia that was not treated. After IV Zofran the patient is still complaining of nausea. She continues to do not deny abdominal cramping or pain. I have prescribed Phenergan 25 IM and the patient is agreeable. Her urine was contaminated and her urine was negative. The patient states that her nausea is better, however, she is a bit tired after the Phenergan. Due to the stools being treated to 3 times per day the patient's presentation is most likely viral in nature. I will send the patient home with Zofran OTD and instructions to take Imodium [id number]. I will also include in the patient's discharge instructions that she can obtain [id number] GERD medication, but that she needs to follow-up with her primary care. Upon talking to the patient about discharge she stated that she was starting to feel her heartburn and was requesting something for it. She requested something IV. I will order Pepcid 20 mg IV push. The patient will be discharged afterwards. I have talked with the patient about today's findings, in addition to providing specific details for plan of care. Reassessment at the time of disposition demonstrates that the patient is in no acute distress. The patient is stable for discharge, counseling was provided and we discussed in great detail signs and symptoms that would prompt them to return to the Emergency Department. Medication, follow up and supportive care measures were reviewed and discussed. Voices understanding and is agreeable to plan of care. Denies any further questions or concerns at this time. Diagnostics: CBC, CMP, troponin, EKG, CXR Therapeutics: IV fluids, Zofran, Phenergan 25 IM, Pepcid 20 mg IV. Prescription: Zofran 4 mg OTD 1 tab every 6 hours as needed for nausea #10 Impression: Nausea, vomiting Plan: 1. You were evaluated today on an emergent basis. Your complaints of nausea and vomiting for the last 3 days were evaluated with blood work, an EKG and a chest x-ray. Your exam and your blood work suggest a viral gastritis. This can be treated symptomatically. I have prescribed Zofran 4 mg 1 tablet every 6 hours as needed for nausea. You can take Imodium as directed for your diarrhea. If you develop a fever or ill to have relief in 3 to 4 days please follow-up with your primary care or return to the emergency room. For your heartburn you can get xprm-app-caxnnsk medication such as Pepcid, but you need to follow-up with your primary care to ensure definitive care. Be sure to take sips of fluid slowly. Do not try to eat full meals until you are feeling better. You can eat bland foods such as rice or mashed potatoes or chicken noodle soup. 2. You can alternate Tylenol and ibuprofen as needed for pain and fever management. 3. We encourage you to follow up with your primary care provider and/or recommended specialist in the next few days for re-evaluation and further care/management. 4. If your symptoms should worsen, new symptoms develop or any of the signs and symptoms we discussed should arise please return to the emergency room or call 911 (if needed). Definitive disposition and diagnosis as appropriate pending reevaluation and review of above. - Related Data Allergies Allergy/AdvReac Type Severity Reaction Status Date / Time No Known Allergies Allergy Verified 07/01/20 10:22 Home Meds: Home Meds ARIPiprazole [Abilify] 30 mg PO DAILY 07/25/16 [History] Albuterol/Ipratropium [DuoNeb 3.0-0.5 MG/3 ML] 3 ml INH Q6HRRT PRN 07/25/16 [History] Esomeprazole Magnesium [Nexium 24Hr] 20 mg PO DAILY #14 capsule.dr 08/18/19 [Rx] Ondansetron [Zofran ODT] 1 tab PO Q6H PRN #4 tab.dis 08/18/19 [Rx] predniSONE [Prednisone] 50 mg PO DAILY #5 tablet 02/12/20 [Rx] Albuterol Sulfate [Albuterol Sulfate Hfa] 2 puff IH Q6HRRT PRN 07/01/20 [History] Diclofenac Sodium 50 mg PO BID PRN 07/01/20 [History] Ondansetron [Zofran ODT] 4 mg PO Q6H PRN #10 tab.dis 07/01/20 [Rx] Past Medical History HEENT History: Reports: Impaired 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 Cardiovascular History: Reports: None Respiratory History: Reports: Asthma Gastrointestinal History: Reports: None Genitourinary History: Reports: None [place] REVERSE WINDER History: Reports: None Musculoskeletal History: Reports: None Neurological History: Reports: Alzheimers Disease, Other (See Below) Other Neuro History: son states "jerking" all her life, also questionable Alzheimers Psychiatric History: Reports: Anxiety, Bipolar, Depression, Emotional Problems, Mood Swings, PTSD Other Psychiatric History: On meds, has not taken them for about 8 months Endocrine/Metabolic History: Reports: None Hematologic History: Reports: Anemia Immunologic History: Reports: None Oncologic (Cancer) History: Reports: None Dermatologic History: Reports: None - Infectious Disease History Infectious Disease History: Reports: None - Past Surgical History Head Surgeries/Procedures: Reports: None Female Surgical History: Reports: Tubal Ligation Social & Family History - Family History Family Medical History: No Pertinent Family History - Caffeine Use Caffeine Use: Reports: Coffee, Soda, Tea ED ROS GENERAL - Review of Systems Review Of Systems: Comprehensive ROS is negative, except as noted in HPI. ED EXAM, GENERAL - Physical Exam Exam: See Below (See dictation) Course - Vital Signs Last Recorded V/S: Last Vital Signs Temp 98.2 F 07/01/20 12:19 Pulse 62 07/01/20 12:53 Resp 16 07/01/20 12:53 BP 146/89 H 07/01/20 12:53 Pulse Ox 97 07/01/20 12:53 - Orders/Labs/Meds Orders: Active Orders 24 hr Category Date Time Status Saline Lock Insert [OM.PC] Stat Oth 07/01/20 10:29 Ordered Labs: Laboratory Tests 07/01/20 07/01/20 07/01/20 Range/Units 10:35 10:35 11:18 WBC (4.0-11.0) K/uL RBC (4.30-5.90) M/uL Hgb (12.0-16.0) g/dL Hct (36.0-46.0) % MCV (80.0-98.0) fL MCH (27.0-32.0) pg MCHC (31.0-37.0) g/dL RDW Std Deviation (28.0-62.0) fl RDW Coeff of Maddison (11.0-15.0) % Plt Count (150-400) K/uL MPV (7.40-12.00) fL Neut % (Auto) (48.0-80.0) % Lymph % (Auto) (16.0-40.0) % [place] % (Auto) (0.0-15.0) % Eos % (Auto) (0.0-7.0) % Baso % (Auto) (0.0-1.5) % Neut # (Auto) (1.4-5.7) K/uL Lymph # (Auto) (0.6-2.4) K/uL [place] # (Auto) (0.0-0.8) K/uL Eos # (Auto) (0.0-0.7) K/uL Baso # (Auto) (0.0-0.1) K/uL Nucleated RBC % /100WBC Nucleated RBCs # K/uL Sodium (136-145) mmol/L Potassium (3.5-5.1) mmol/L Chloride (98-107) mmol/L Carbon Dioxide (21.0-32.0) mmol/L BUN (7.0-18.0) mg/dL Creatinine (0.6-1.0) mg/dL Est Cr Clr Drug Dosing mL/min Estimated GFR (MDRD) ml/min Glucose (74-106) mg/dL Calcium (8.5-10.1) mg/dL Total Bilirubin (0.2-1.0) mg/dL AST (15-37) IU/L ALT (14-63) IU/L Alkaline Phosphatase (46-116) U/L Troponin I (0.000-0.056) ng/mL Total Protein (6.4-8.2) g/dL Albumin (3.4-5.0) g/dL Globulin (2.6-4.0) g/dL Albumin/Globulin Ratio (0.9-1.6) Urine Color YELLOW Urine Appearance SLT CLOUDY Urine pH 8.0 (5.0-8.0) Ur Specific Angelica 1.020 (1.001-1.035) Urine Protein TRACE H (NEGATIVE) mg/dL Urine Glucose (UA) NEGATIVE (NEGATIVE) mg/dL Urine Ketones NEGATIVE (NEGATIVE) mg/dL Urine Occult Blood MODERATE H (NEGATIVE) Urine Nitrite NEGATIVE (NEGATIVE) Urine Bilirubin NEGATIVE (NEGATIVE) Urine Urobilinogen 0.2 (<2.0) EU/dL Ur Leukocyte Esterase NEGATIVE (NEGATIVE) Urine RBC 3-5 (0-2/HPF) Urine WBC 0-2 (0-5/HPF) Ur Epithelial Cells MODERATE (NONE-FEW) Urine Bacteria FEW (NEGATIVE) Urine HCG, Qual NEGATIVE (NEGATIVE) SARS-CoV-2 RNA (KIM) NEGATIVE (NEGATIVE) 07/01/20 07/01/20 Range/Units 11:22 11:22 WBC 18.18 H (4.0-11.0) K/uL RBC 4.64 (4.30-5.90) M/uL Hgb 13.5 (12.0-16.0) g/dL Hct 41.2 (36.0-46.0) % MCV 88.8 (80.0-98.0) fL MCH 29.1 (27.0-32.0) pg MCHC 32.8 (31.0-37.0) g/dL RDW Std Deviation 48.4 (28.0-62.0) fl RDW Coeff of Maddison 15 (11.0-15.0) % Plt Count 312 (150-400) K/uL MPV 9.60 (7.40-12.00) fL Neut % (Auto) 88.4 H (48.0-80.0) % Lymph % (Auto) 6.3 L (16.0-40.0) % [place] % (Auto) 5.1 (0.0-15.0) % Eos % (Auto) 0.1 (0.0-7.0) % Baso % (Auto) 0.1 (0.0-1.5) % Neut # (Auto) 16.1 H (1.4-5.7) K/uL Lymph # (Auto) 1.1 (0.6-2.4) K/uL [place] # (Auto) 0.9 H (0.0-0.8) K/uL Eos # (Auto) 0.0 (0.0-0.7) K/uL Baso # (Auto) 0.0 (0.0-0.1) K/uL Nucleated RBC % 0.0 /100WBC Nucleated RBCs # 0 K/uL Sodium 137 (136-145) mmol/L Potassium 3.6 (3.5-5.1) mmol/L Chloride 98 (98-107) mmol/L Carbon Dioxide 26.6 (21.0-32.0) mmol/L BUN 9 (7.0-18.0) mg/dL Creatinine 1.1 H (0.6-1.0) mg/dL Est Cr Clr Drug Dosing 54.01 mL/min Estimated GFR (MDRD) > 60.0 ml/min Glucose 137 H (74-106) mg/dL Calcium 8.2 L (8.5-10.1) mg/dL Total Bilirubin 0.3 (0.2-1.0) mg/dL AST 19 (15-37) IU/L ALT 22 (14-63) IU/L Alkaline Phosphatase 100 (46-116) U/L Troponin I < 0.050 (0.000-0.056) ng/mL Total Protein 8.2 (6.4-8.2) g/dL Albumin 3.5 (3.4-5.0) g/dL Globulin 4.7 H (2.6-4.0) g/dL Albumin/Globulin Ratio 0.7 L (0.9-1.6) Urine Color Urine Appearance Urine pH (5.0-8.0) Ur Specific Angelica (1.001-1.035) Urine Protein (NEGATIVE) mg/dL Urine Glucose (UA) (NEGATIVE) mg/dL Urine Ketones (NEGATIVE) mg/dL Urine Occult Blood (NEGATIVE) Urine Nitrite (NEGATIVE) Urine Bilirubin (NEGATIVE) Urine Urobilinogen (<2.0) EU/dL Ur Leukocyte Esterase (NEGATIVE) Urine RBC (0-2/HPF) Urine WBC (0-5/HPF) Ur Epithelial Cells (NONE-FEW) Urine Bacteria (NEGATIVE) Urine HCG, Qual (NEGATIVE) SARS-CoV-2 RNA (KIM) (NEGATIVE) Meds: Medications Discontinued Medications Generic Name Dose Route Start Last Admin Trade Name Freq PRN Reason Stop Dose Admin Famotidine 20 mg 07/01/20 12:42 07/01/20 12:49 Famotidine 20 Mg/2 Ml Sdv IVPUSH 07/01/20 12:43 20 mg ONETIME ONE Administration Sodium Chloride 1,000 mls @ 999 mls/hr 07/01/20 10:30 07/01/20 11:04 Normal Saline IV 07/01/20 11:30 999 mls/hr .BOLUS ONE Administration Ondansetron HCl 4 mg 07/01/20 10:30 07/01/20 11:05 Ondansetron 4 Mg/2 Ml Sdv IVPUSH 4 mg Q8H REGLA Administration Promethazine HCl 25 mg 07/01/20 11:35 07/01/20 11:55 Promethazine 25 Mg/Ml Sdv IM 07/01/20 11:36 25 mg ONETIME ONE Administration Sodium Chloride 10 ml 07/01/20 10:30 07/01/20 11:05 Sodium Chloride 0.9% 10 Ml Syringe FLUSH 10 ml ASDIRECTED PRN Administration Keep Vein Open Sodium Chloride 2.5 ml 07/01/20 10:30 07/01/20 11:05 Sodium Chloride 0.9% 2.5 Ml Syringe FLUSH 2.5 ml ASDIRECTED PRN Administration Keep Vein Open Departure - Departure Time of Disposition: 12:37 Disposition: Home, Self-Care 01 Condition: Good Clinical Impression: Vomiting, Diarrhea - Discharge Information *PRESCRIPTION DRUG MONITORING PROGRAM REVIEWED*: Not Applicable *COPY OF PRESCRIPTION DRUG MONITORING REPORT IN PATIENT MICHAEL: Not Applicable Prescriptions: Ondansetron [Zofran ODT] 4 mg PO Q6H PRN #10 tab.dis PRN Reason: Nausea Instructions: Viral Gastroenteritis, Adult, [id number] Referrals: PCP,None [Primary Care Provider] - Forms: ED Department Discharge Additional Instructions: The following information is given to patients seen in the emergency department who are being discharged to home. This information is to outline your options for follow-up care. We provide all patients seen in our emergency department with a follow-up referral. The need for follow-up, as well as the timing and circumstances, are variable depending upon the specifics of your emergency department visit. If you don't have a primary care physician on staff, we will provide you with a referral. We always advise you to contact your personal physician following an emergency department visit to inform them of the circumstance of the visit and for follow-up with them and/or the need for any referrals to a consulting specialist. The emergency department will also refer you to a specialist when appropriate. This referral assures that you have the opportunity for follow-up care with a specialist. All of these measure are taken in an effort to provide you with optimal care, which includes your follow-up. Under all circumstances we always encourage you to contact your private physician who remains a resource for coordinating your care. When calling for follow-up care, please make the office aware that this follow-up is from your recent emergency room visit. If for any reason you are refused follow-up, please contact the [facility] Emergency Department at and asked to speak to the emergency department charge nurse. [facility] [address] [place] [address] [id number] [place] [address] Plan: 1. You were evaluated today on an emergent basis. Your complaints of nausea and vomiting for the last 3 days were evaluated with blood work, an EKG and a chest x-ray. Your exam and your blood work suggest a viral gastritis. This can be treated symptomatically. I have prescribed Zofran 4 mg 1 tablet every 6 hours as needed for nausea. You can take Imodium as directed for your diarrhea. If you develop a fever or ill to have relief in 3 to 4 days please follow-up with your primary care or return to the emergency room. For your heartburn you can get [id number] medication such as Pepcid, but you need to follow-up with your primary care to ensure definitive care. Be sure to take sips of fluid slowly. Do not try to eat full meals until you are feeling better. You can eat bland foods such as rice or mashed potatoes or chicken noodle soup. 2. You can alternate Tylenol and ibuprofen as needed for pain and fever management. 3. We encourage you to follow up with your primary care provider and/or recommended specialist in the next few days for re-evaluation and further care/management. 4. If your symptoms should worsen, new symptoms develop or any of the signs and symptoms we discussed should arise please return to the emergency room or call 911 (if needed). Sepsis Event Note (ED) - Focused Exam Vital Signs: Vital Signs Temp Pulse Resp BP Pulse Ox 07/01/20 12:53 62 16 146/89 H 97 07/01/20 12:19 98.2 F 62 18 134/86 97 07/01/20 11:17 98.4 F 68 18 119/83 97 07/01/20 10:13 97.2 F 83 17 106/71 98 - My Orders Last 24 Hours: My Active Orders 07/01/20 10:29 Saline Lock Insert [OM.PC] Stat - Assessment/Plan Last 24 Hours: My Active Orders 07/01/20 10:29 Saline Lock Insert [OM.PC] Stat
[2020-07-01] MEDS ORDERED: Sodium Chloride 0.9% 1,000 ML IV ONE (10:30)
[2020-07-01] MEDS ORDERED: Ondansetron 4 MG/2 ML SDV IVPUSH SCH (10:30)
[2020-07-01] MEDS ORDERED: Sodium Chloride 0.9% 2.5 ML Syringe FLUSH PRN (10:30)
[2020-07-01] MEDS ORDERED: Sodium Chloride 0.9% 10 ML Syringe FLUSH PRN (10:30)
--- NOTE | 2020-07-01 11:06 | PCM.SN.2 ---
- Free Text/Narrative Note: EKG done at 11:01 AM shows sinus rhythm borderline left axis deviation and borderline T abnormalities. Heart rate 59 ME interval 178 QT duration 453 axis -23. Compared to 02/12/2020 there is no significant change. Impression no acute injury.
[2020-07-01] MEDS ORDERED: Promethazine 25 MG/ML SDV IM ONE (11:35)
[2020-07-01 11:54] LABS: BLOOD UREA NITROGEN,BUN 9 mg/dL (7.0-18.0); CARBON DIOXIDE,CO2 26.6 mmol/L (21.0-32.0); CHLORIDE,CL 98 mmol/L (98-107); GLUCOSE RANDOM 137 mg/dL (74-106); POTASSIUM,K 3.6 mmol/L (3.5-5.1)
[2020-07-01 12:05] LABS: SODIUM,NA 137 mmol/L (136-145)
[2020-07-01 12:20] VITALS: PULSE 62
[2020-07-01] MEDS ORDERED: Famotidine 20 MG/2 ML SDV IVPUSH ONE (12:42)
[2020-07-01 12:54] VITALS: BP 146/89
--- NOTE | 2020-07-01 13:37 | CR ---
INDICATION: Chest pain. TECHNIQUE: Chest 1 view. COMPARISON: Chest radiograph 02/12/2020. FINDINGS: No focal consolidation, pleural effusion, or pneumothorax. Normal heart size and pulmonary vascularity. Stable convexity along the right aspect of the upper mediastinum likely related to the ascending thoracic aorta. The bones are unremarkable. IMPRESSION: No acute cardiopulmonary findings. Dictated by Leeanna Dupree MD @ 07/01/2020 1:36:[address] Leeanna Dupree @ Jul 01 2020 1:36PM
== END 2020-07-01 12:58 | disposition home or self-care (01) ==
LOC: MW.ED 10:07
DX: R11.2 Nausea with vomiting, unspecified (principal); R19.7 Diarrhea, unspecified; J45.909 Unspecified asthma, uncomplicated; Z20.822 Contact with and (suspected) exposure to COVID-19
CPT/HCPCS: 36415; 71045; 80053; 81001; 81025; 84484; 85025; 87635; 93005; 96372; 96374; 96375; 99284; J2405; J2550; J3490; J7030; 93010; 99283; U0002

== ENCOUNTER 2020-07-21 06:45 | Emergency (ER) | payer MEDICAID ==
[2020-07-21] MEDS ORDERED: Sodium Chloride 0.9% 10 ML Syringe FLUSH PRN (06:48)
[2020-07-21] MEDS ORDERED: HYDROmorphone 1 MG/ML Syringe IVPUSH ONE (06:48)
[2020-07-21] MEDS ORDERED: Sodium Chloride 0.9% 2.5 ML Syringe FLUSH PRN (06:48)
[2020-07-21] MEDS ORDERED: Ketorolac 15 MG/ML SDV IVPUSH ONE (06:49)
--- NOTE | 2020-07-21 06:53 | EDM.PDOC ---
ED HPI GENERAL MEDICAL PROBLEM - General Chief Complaint: Back Pain or Injury Stated Complaint: SEVERE BACK PAIN Time Seen by Provider: 07/21/20 06:48 Source of Information: Reports: Patient History Limitations: Reports: No Limitations - History of Present Illness INITIAL COMMENTS - FREE TEXT/NARRATIVE: 41-year-old female past medical history psychiatric problems, alcohol abuse, chronic back pain presents for left flank pain since last night. Patient states this is not like her typical back pain. She has not noted any hematuria or dysuria. Denies radiation to her abdomen. No nausea or vomiting. Denies history of heavy lifting, falls, trauma. Patient was ambulatory on presentation. No muscle weakness, urinary incontinence/retention, saddle anesthesia reported. lower back Pain Score (Numeric/FACES): 9 - Related Data Allergies Allergy/AdvReac Type Severity Reaction Status Date / Time No Known Allergies Allergy Verified 07/21/20 06:59 Home Meds: Home Meds ARIPiprazole [Abilify] 30 mg PO DAILY 07/25/16 [History] Albuterol/Ipratropium [DuoNeb 3.0-0.5 MG/3 ML] 3 ml INH Q6HRRT PRN 07/25/16 [History] Esomeprazole Magnesium [Nexium 24Hr] 20 mg PO DAILY #14 capsule. 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 Cardiovascular History: Reports: None Respiratory History: Reports: Asthma Gastrointestinal History: Reports: GERD Genitourinary History: Reports: None INFORMATION RESOURCE CONSULTANT History: Reports: Musculoskeletal History: Reports: None Neurological History: Reports: Alzheimers Disease, Other (See Below) Other Neuro History: son states "jerking" all her life, also questionable Alzheimers Psychiatric History: Reports: Anxiety, Bipolar, Depression, Emotional Problems, Mood Swings, PTSD Other Psychiatric History: On meds, has not taken them for about 8 months Endocrine/Metabolic History: Reports: None Hematologic History: Reports: Anemia Immunologic History: Reports: None Oncologic (Cancer) History: Reports: None Dermatologic History: Reports: None - Infectious Disease History Infectious Disease History: Reports: Chicken Pox - Past Surgical History Head Surgeries/Procedures: Reports: None HEENT Surgical History: Reports: None Respiratory Surgical History: Reports: None GI Surgical History: Reports: None Female Surgical History: Reports: Tubal Ligation Neurological Surgical History: Reports: None Social & Family History - Family History Family Medical History: No Pertinent Family History - Caffeine Use Caffeine Use: Reports: Coffee ED ROS GENERAL - Review of Systems Review Of Systems: Comprehensive ROS is negative, except as noted in HPI. ED EXAM, GENERAL - Physical Exam Exam: See Below Exam Limited By: No Limitations General Appearance: Alert, WD/WN, Other (tearful, appears uncomfortable) Throat/Mouth: Normal Voice, No Airway Compromise Head: Atraumatic, Normocephalic Neck: Normal Inspection Respiratory/Chest: No Respiratory Distress, Lungs Clear, Normal Breath Sounds, No Accessory Muscle Use Cardiovascular: Normal Peripheral Pulses, Regular Rate, Rhythm GI/Abdominal: Soft, Non-Tender Back Exam: Normal Inspection, CVA Tenderness (L). No: CVA Tenderness (R), V ertebral Tenderness Neurological: Alert Psychiatric: Anxious, Tearful Skin Exam: Warm, Dry, Intact, Normal Color Course - Vital Signs Last Recorded V/S: Last Vital Signs Temp 97.6 F 07/21/20 06:45 Pulse 59 L 07/21/20 08:30 Resp 18 07/21/20 08:30 BP 113/65 07/21/20 08:30 Pulse Ox 92 L 07/21/20 08:30 - Orders/Labs/Meds Orders: Active Orders 24 hr Category Date Time Status Sodium Chloride 0.9% [Saline Flush] Med 07/21/20 06:48 Active 10 ml FLUSH ASDIRECTED PRN Sodium Chloride 0.9% [Saline Flush] Med 07/21/20 06:48 Active 2.5 ml FLUSH ASDIRECTED PRN Saline Lock Insert [OM.PC] Stat Oth 07/21/20 06:48 Ordered Medication Orders Sodium Chloride (Sodium Chloride 0.9% 10 Ml Syringe) 10 ml FLUSH ASDIRECTED PRN PRN Reason: Keep Vein Open Last Admin: 07/21/20 08:29 Dose: 10 ml Documented by: MATEO Sodium Chloride (Sodium Chloride 0.9% 2.5 Ml Syringe) 2.5 ml FLUSH ASDIRECTED PRN PRN Reason: Keep Vein Open Last Admin: 07/21/20 08:29 Dose: 2.5 ml Documented by: MATEO Labs: Laboratory Tests 07/21/20 07/21/20 07/21/20 Range/Units 06:42 06:42 07:41 WBC 9.52 (4.0-11.0) K/uL RBC 4.70 (4.30-5.90) M/uL Hgb 14.4 (12.0-16.0) g/dL Hct 41.8 (36.0-46.0) % MCV 88.9 (80.0-98.0) fL MCH 30.6 (27.0-32.0) pg MCHC 34.4 (31.0-37.0) g/dL RDW Std Deviation 48.7 (28.0-62.0) fl RDW Coeff of [place] 15 (11.0-15.0) % Plt Count 394 (150-400) K/uL MPV 9.50 (7.40-12.00) fL Neut % (Auto) 53.5 (48.0-80.0) % Lymph % (Auto) 35.1 (16.0-40.0) % [place] % (Auto) 8.5 (0.0-15.0) % Eos % (Auto) 2.4 (0.0-7.0) % Baso % (Auto) 0.5 (0.0-1.5) % Neut # (Auto) 5.1 (1.4-5.7) K/uL Lymph # (Auto) 3.3 H (0.6-2.4) K/uL Alpine # (Auto) 0.8 (0.0-0.8) K/uL Eos # (Auto) 0.2 (0.0-0.7) K/uL Baso # (Auto) 0.1 (0.0-0.1) K/uL Nucleated RBC % 0.0 /100WBC Nucleated RBCs # 0 K/uL Sodium 138 (136-145) mmol/L Potassium 4.1 (3.5-5.1) mmol/L Chloride 103 (98-107) mmol/L Carbon Dioxide 24.6 (21.0-32.0) mmol/L BUN 10 (7.0-18.0) mg/dL Creatinine 1.1 H (0.6-1.0) mg/dL Est Cr Clr Drug Dosing TNP Estimated GFR (MDRD) > 60.0 ml/min Glucose 89 (74-106) mg/dL Calcium 8.5 (8.5-10.1) mg/dL Total Bilirubin 0.3 (0.2-1.0) mg/dL AST 20 (15-37) IU/L ALT 20 (14-63) IU/L Alkaline Phosphatase 88 (46-116) U/L Total Protein 7.8 (6.4-8.2) g/dL Albumin 3.4 (3.4-5.0) g/dL Globulin 4.4 H (2.6-4.0) g/dL Albumin/Globulin Ratio 0.8 L (0.9-1.6) Urine Color YELLOW Urine Appearance SLT CLOUDY Urine pH 5.5 (5.0-8.0) Ur Specific [place] >= 1.030 (1.001-1.035) Urine Protein NEGATIVE (NEGATIVE) mg/dL Urine Glucose (UA) NEGATIVE (NEGATIVE) mg/dL Urine Ketones NEGATIVE (NEGATIVE) mg/dL Urine Occult Blood TRACE-INTACT H (NEGATIVE) Urine Nitrite NEGATIVE (NEGATIVE) Urine Bilirubin NEGATIVE (NEGATIVE) Urine Urobilinogen 0.2 (<2.0) EU/dL Ur Leukocyte Esterase NEGATIVE (NEGATIVE) Urine RBC 0-2 (0-2/HPF) Urine WBC 0-1 (0-5/HPF) Ur Epithelial Cells FEW (NONE-FEW) Urine Bacteria FEW (NEGATIVE) Urinalysis Comment Urine HCG, Qual (NEGATIVE) 07/21/20 Range/Units 07:41 WBC (4.0-11.0) K/uL RBC (4.30-5.90) M/uL Hgb (12.0-16.0) g/dL Hct (36.0-46.0) % MCV (80.0-98.0) fL MCH (27.0-32.0) pg MCHC (31.0-37.0) g/dL RDW Std Deviation (28.0-62.0) fl RDW Coeff of [place] (11.0-15.0) % Plt Count (150-400) K/uL MPV (7.40-12.00) fL Neut % (Auto) (48.0-80.0) % Lymph % (Auto) (16.0-40.0) % Alpine % (Auto) (0.0-15.0) % Eos % (Auto) (0.0-7.0) % Baso % (Auto) (0.0-1.5) % Neut # (Auto) (1.4-5.7) K/uL Lymph # (Auto) (0.6-2.4) K/uL Alpine # (Auto) (0.0-0.8) K/uL Eos # (Auto) (0.0-0.7) K/uL Baso # (Auto) (0.0-0.1) K/uL Nucleated RBC % /100WBC Nucleated RBCs # K/uL Sodium (136-145) mmol/L Potassium (3.5-5.1) mmol/L Chloride (98-107) mmol/L Carbon Dioxide (21.0-32.0) mmol/L BUN (7.0-18.0) mg/dL Creatinine (0.6-1.0) mg/dL Est Cr Clr Drug Dosing Estimated GFR (MDRD) ml/min Glucose (74-106) mg/dL Calcium (8.5-10.1) mg/dL Total Bilirubin (0.2-1.0) mg/dL AST (15-37) IU/L ALT (14-63) IU/L Alkaline Phosphatase (46-116) U/L Total Protein (6.4-8.2) g/dL Albumin (3.4-5.0) g/dL Globulin (2.6-4.0) g/dL Albumin/Globulin Ratio (0.9-1.6) Urine Color Urine Appearance Urine pH (5.0-8.0) Ur Specific [place] (1.001-1.035) Urine Protein (NEGATIVE) mg/dL Urine Glucose (UA) (NEGATIVE) mg/dL Urine Ketones (NEGATIVE) mg/dL Urine Occult Blood (NEGATIVE) Urine Nitrite (NEGATIVE) Urine Bilirubin (NEGATIVE) Urine Urobilinogen (<2.0) EU/dL Ur Leukocyte Esterase (NEGATIVE) Urine RBC (0-2/HPF) Urine WBC (0-5/HPF) Ur Epithelial Cells (NONE-FEW) Urine Bacteria (NEGATIVE) Urinalysis Comment Urine HCG, Qual NEGATIVE (NEGATIVE) Meds: Medications Generic Name Dose Route Start Last Admin Trade Name Freq PRN Reason Stop Dose Admin Sodium Chloride 10 ml 07/21/20 06:48 07/21/20 08:29 Sodium Chloride 0.9% 10 Ml Syringe FLUSH 10 ml ASDIRECTED PRN Administration Keep Vein Open Sodium Chloride 2.5 ml 07/21/20 06:48 07/21/20 08:29 Sodium Chloride 0.9% 2.5 Ml Syringe FLUSH 2.5 ml ASDIRECTED PRN Administration Keep Vein Open Discontinued Medications Generic Name Dose Route Start Last Admin Trade Name Freq PRN Reason Stop Dose Admin Hydromorphone HCl 1 mg 07/21/20 06:48 07/21/20 06:58 Hydromorphone 1 Mg/Ml Syringe IVPUSH 07/21/20 06:49 1 mg ONETIME ONE Administration Ketorolac Tromethamine 15 mg 07/21/20 06:49 07/21/20 06:58 Ketorolac 15 Mg/Ml Sdv IVPUSH 07/21/20 06:50 15 mg ONETIME ONE Administration - Re-Assessments/Exams Free Text/Narrative Re-Assessment/Exam: 07/21/20 06:52 We will get urinalysis to assess for hematuria for rule out renal stone. Will treat patient's pain with Toradol and Dilaudid. Will follow up labs and disposition accordingly. Likely musculoskeletal pain versus renal stone. 07/21/20 08:10 Trace blood in urine, quality affected by low volume. Will get CT abdomen pelvis without contrast to ensure no renal stone. Patient's pain is much better controlled after analgesia. 07/21/20 09:45 CT imaging is unremarkable. Will discharge with analgesia and recommend PMD follow-up for further work-up of back pain. Departure - Departure Time of Disposition: 09:46 Disposition: Home, Self-Care 01 Condition: Good Clinical Impression: Back pain Qualifiers: Back pain location: low back pain Chronicity: acute Back pain laterality: left Sciatica presence: unspecified whether sciatica present Qualified Code(s): M54.5 - Low back pain - Discharge Information Prescriptions: Cyclobenzaprine [Flexeril] 10 mg PO TID PRN #20 tab PRN Reason: Muscle Spasm - Painful Ibuprofen [Motrin] 600 mg PO Q6H PRN #20 tab PRN Reason: Pain Instructions: Acute Back Pain, Adult Referrals: PCP,None [Primary Care Provider] - Forms: ED Department Discharge Additional Instructions: You presented to the emergency department with left-sided back pain. I have sent you prescriptions for pain medication and muscle relaxant to your pharmacy. You need to follow-up with your primary care physician for further work-up and management. You may necessitate advanced imaging of the back such as an MRI. Your CT imaging was unremarkable and there is no evidence of kidney stone or intra-abdominal pathology. The following information is given to patients seen in the emergency department who are being discharged to home. This information is to outline your options for follow-up care. We provide all patients seen in our emergency department with a follow-up referral. The need for follow-up, as well as the timing and circumstances, are variable depending upon the specifics of your emergency department visit. If you don't have a primary care physician on staff, we will provide you with a referral. We always advise you to contact your personal physician following an emergency department visit to inform them of the circumstance of the visit and for follow-up with them and/or the need for any referrals to a consulting specialist. The emergency department will also refer you to a specialist when appropriate. This referral assures that you have the opportunity for follow-up care with a specialist. All of these measure are taken in an effort to provide you with optimal care, which includes your follow-up. Under all circumstances we always encourage you to contact your private physician who remains a resource for coordinating your care. When calling for follow-up care, please make the office aware that this follow-up is from your recent emergency room visit. If for any reason you are refused follow-up, please contact the [facility] Emergency Department at and asked to speak to the emergency department charge nurse. Please follow up with your primary care physician. If you do not have a primary care physician, see below: [facility] [address], [place] [id number] My [facility] [address] [place], [place] [address] [facility] [address] [place] [address] Sepsis Event Note (ED) - Focused Exam Vital Signs: Vital Signs Temp Pulse Resp BP Pulse Ox 07/21/20 08:30 59 L 18 113/65 92 L 07/21/20 06:45 97.6 F 72 18 129/87 98 - My Orders Last 24 Hours: My Active Orders 07/21/20 06:48 Sodium Chloride 0.9% [Saline Flush] 10 ml FLUSH ASDIRECTED PRN Sodium Chloride 0.9% [Saline Flush] 2.5 ml FLUSH ASDIRECTED PRN Saline Lock Insert [OM.PC] Stat - Assessment/Plan Last 24 Hours: My Active Orders 07/21/20 06:48 Sodium Chloride 0.9% [Saline Flush] 10 ml FLUSH ASDIRECTED PRN Sodium Chloride 0.9% [Saline Flush] 2.5 ml FLUSH ASDIRECTED PRN Saline Lock Insert [OM.PC] Stat
[2020-07-21 07:30] LABS: BLOOD UREA NITROGEN,BUN 10 mg/dL (7.0-18.0); CARBON DIOXIDE,CO2 24.6 mmol/L (21.0-32.0); CHLORIDE,CL 103 mmol/L (98-107); GLUCOSE RANDOM 89 mg/dL (74-106); POTASSIUM,K 4.1 mmol/L (3.5-5.1); SODIUM,NA 138 mmol/L (136-145)
--- NOTE | 2020-07-21 09:31 | CT ---
For Patients: As a result of the Century Cures Act, medical imaging exams and procedure reports are released immediately into your electronic medical record. You may view this report before your referring provider. If you have questions, please contact your health care provider. Indication: Left flank pain Technique: Volumetric multidetector CT images of the abdomen and pelvis were without the administration of intravenous contrast. Comparison: None available. Findings: The lung bases are clear. The liver is normal in attenuation without intrahepatic biliary ductal dilatation. The gallbladder is unremarkable without evidence of radiopaque calculus. There is no significant common biliary ductal dilatation or abrupt cut off. The spleen is normal in attenuation and size. The stomach and duodenum are grossly unremarkable. The pancreas is normal in attenuation without significant atrophy. The adrenal glands are unremarkable. There is no evidence of radiopaque calculus or hydronephrosis. There is a mild amount of stool seen throughout the colon. There is mild distal colonic diverticulosis. The appendix is unremarkable. There is no significant mesenteric, retroperitoneal, or pelvic sidewall lymph nodes. The aorta is nonaneurysmal. There is no significant atherosclerotic disease appreciated. The solid pelvic viscera are grossly unremarkable. There is no free fluid or free air. There is a small fat containing umbilical hernia, otherwise the anterior abdominal wall is grossly intact. The lumbar vertebral body heights are grossly maintained with mild multilevel degenerative disc disease and moderate facet arthrosis. Enthesopathic changes of the bilateral iliac crests are appreciated. Impression: No evidence of radiopaque calculus or obstructive uropathy. No definite acute intra-abdominal abnormality is appreciated. Please note that all CT scans at this facility use dose modulation, iterative reconstruction, and/or weight-based dosing when appropriate to reduce radiation dose to as low as reasonably achievable. Dictated by Kvng Diaz MD @ 07/21/2020 9:30:[address] Kvng Diaz @ Jul 21 2020 9:30AM
[2020-07-21 09:50] VITALS: BP 94/65; PULSE 54
== END 2020-07-21 09:55 | disposition home or self-care (01) ==
LOC: MW.ED 06:45
DX: M54.5 Low back pain (principal)
CPT/HCPCS: 36415; 74176; 80053; 81001; 81025; 85025; 96374; 96375; 99284; J1170; J1885; 99283

== ENCOUNTER 2020-08-06 21:04 | Emergency (ER) | payer MEDICAID ==
--- NOTE | 2020-08-06 21:14 | EDM.PDOC ---
ED HPI GENERAL MEDICAL PROBLEM - General Chief Complaint: Respiratory Problem Stated Complaint: SHORTNESS OF BREATH Time Seen by Provider: 08/06/20 21:10 Source of Information: Reports: Patient History Limitations: Reports: No Limitations - History of Present Illness INITIAL COMMENTS - FREE TEXT/NARRATIVE: Patient is a 46-year-old female who presents today for what she says is shortness of breath. Patient she also has anxiety and thinks she may be nervous but felt like she could not get any air in and prompted her to come to the ED. Before arrival she took 3 puffs albuterol which did not help and when she got her EMS they put IV and she felt more calm. Patient still feels like she has some slight shortness of breath but denies any chest pain no coughing no fever chills leg swelling or other symptoms. chest Pain Score (Numeric/FACES): 6 - Related Data Allergies Allergy/AdvReac Type Severity Reaction Status Date / Time No Known Allergies Allergy Verified 08/06/20 21:10 Home Meds: Home Meds ARIPiprazole [Abilify] 30 mg PO DAILY 07/25/16 [History] Albuterol/Ipratropium [DuoNeb 3.0-0.5 MG/3 ML] 3 ml INH Q6HRRT PRN 07/25/16 [History] Esomeprazole Magnesium [Nexium 24Hr] 20 mg PO DAILY #14 capsule. 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 Cardiovascular History: Reports: None Respiratory History: Reports: Asthma Gastrointestinal History: Reports: GERD Genitourinary History: Reports: None PREFLIGHT MECHANIC History: Reports: Musculoskeletal History: Reports: None Neurological History: Reports: Alzheimers Disease Other Neuro History: son states "jerking" all her life, also questionable Alzheimers Psychiatric History: Reports: Anxiety, Bipolar, Depression, Emotional Problems, Mood Swings, PTSD Other Psychiatric History: On meds, has not taken them for about 8 months Endocrine/Metabolic History: Reports: None Insulin Pump Model and Group Controller: N/A Hematologic History: Reports: Anemia Immunologic History: Reports: None Oncologic (Cancer) History: Reports: None Dermatologic History: Reports: None - Infectious Disease History Infectious Disease History: Reports: Chicken Pox - Past Surgical History Head Surgeries/Procedures: Reports: None HEENT Surgical History: Reports: None Respiratory Surgical History: Reports: None GI Surgical History: Reports: None Female Surgical History: Reports: Tubal Ligation Neurological Surgical History: Reports: None Social & Family History - Family History Family Medical History: No Pertinent Family History - Caffeine Use Caffeine Use: Reports: Coffee ED ROS GENERAL - Review of Systems Review Of Systems: See Below Constitutional: Reports: No Symptoms HEENT: Reports: No Symptoms Respiratory: Reports: Shortness of Breath Cardiovascular: Reports: No Symptoms Endocrine: Reports: No Symptoms GI/Abdominal: Reports: No Symptoms : Reports: No Symptoms Musculoskeletal: Reports: No Symptoms Skin: Reports: No Symptoms Neurological: Reports: No Symptoms Psychiatric: Reports: No Symptoms Hematologic/Lymphatic: Reports: No Symptoms Immunologic: Reports: No Symptoms ED EXAM, GENERAL - Physical Exam Exam: See Below Exam Limited By: No Limitations General Appearance: Alert, WD/WN, No Apparent Distress Respiratory/Chest: No Respiratory Distress, Lungs Clear, Normal Breath Sounds Cardiovascular: Normal Peripheral Pulses, Regular Rate, Rhythm GI/Abdominal: Normal Bowel Sounds, Soft, Non-Tender Extremities: Normal Inspection, Normal Range of Motion Neurological: Alert, Oriented, CN II-XII Intact, Normal Cognition, Normal Gait #1 Interpretation EKG Date: 08/06/20 Time: 21:20 Rhythm: NSR Rate (Beats/Min): 89 ST-T: Normal Course - Vital Signs Last Recorded V/S: Last Vital Signs Temp 97.0 F 08/06/20 21:10 Pulse 84 08/06/20 21:10 Resp 18 08/06/20 21:10 BP 118/79 08/06/20 21:10 Pulse Ox 97 06/26/21 21:10 - Orders/Labs/Meds Labs: Laboratory Tests 08/06/20 08/06/20 08/06/20 Range/Units 21:12 21:12 21:12 WBC 10.62 (4.0-11.0) K/uL RBC 4.31 (4.30-5.90) M/uL Hgb 12.4 (12.0-16.0) g/dL Hct 37.2 (36.0-46.0) % MCV 86.3 (80.0-98.0) fL MCH 28.8 (27.0-32.0) pg MCHC 33.3 (31.0-37.0) g/dL RDW Std Deviation 45.0 (28.0-62.0) fl RDW Coeff of Maddison 15 (11.0-15.0) % Plt Count 312 (150-400) K/uL MPV 9.40 (7.40-12.00) fL Neut % (Auto) 67.0 (48.0-80.0) % Lymph % (Auto) 21.8 (16.0-40.0) % [place] % (Auto) 10.2 (0.0-15.0) % Eos % (Auto) 0.5 (0.0-7.0) % Baso % (Auto) 0.5 (0.0-1.5) % Neut # (Auto) 7.1 H (1.4-5.7) K/uL Lymph # (Auto) 2.3 (0.6-2.4) K/uL [place] # (Auto) 1.1 H (0.0-0.8) K/uL Eos # (Auto) 0.1 (0.0-0.7) K/uL Baso # (Auto) 0.1 (0.0-0.1) K/uL Sodium 139 (136-145) mmol/L Potassium 3.6 (3.5-5.1) mmol/L Chloride 106 (98-107) mmol/L Carbon Dioxide 19.6 L (21.0-32.0) mmol/L BUN 13 (7.0-18.0) mg/dL Creatinine 1.3 H (0.6-1.0) mg/dL Est Cr Clr Drug Dosing 43.78 mL/min Estimated GFR (MDRD) 53.0 ml/min Glucose 102 (74-106) mg/dL Calcium 8.5 (8.5-10.1) mg/dL Phosphorus 2.2 L (2.6-4.7) mg/dL Magnesium 2.0 (1.8-2.4) mg/dL Total Bilirubin 0.6 (0.2-1.0) mg/dL AST 35 (15-37) IU/L ALT 23 (14-63) IU/L Alkaline Phosphatase 83 (46-116) U/L Creatine Kinase 778 H (26-308) U/L Troponin I < 0.050 (0.000-0.056) ng/mL Total Protein 7.7 (6.4-8.2) g/dL Albumin 3.7 (3.4-5.0) g/dL Globulin 4.0 (2.6-4.0) g/dL Albumin/Globulin Ratio 0.9 (0.9-1.6) Lipase 33 L (73-393) U/L HCG, Qual NEGATIVE (NEG) Meds: Medications Discontinued Medications Generic Name Dose Route Start Last Admin Trade Name Freq PRN Reason Stop Dose Admin Al Hydroxide/Mg Hydroxide 15 0 ml 08/06/20 21:22 08/06/20 21:31 ml/ Lidocaine HCl 5 ml PO 08/06/20 21:23 20 each ONETIME ONE Administration - Re-Assessments/Exams Free Text/Narrative Re-Assessment/Exam: 08/06/20 22:19 Labs x-ray reviewed. Patient continues look well be discharged home. Patient presents Pepcid and iron pills we will send patient Pepcid per patient he arm pills [id number]. Departure - Departure Time of Disposition: 22:20 Disposition: Home, Self-Care 01 Condition: Good Clinical Impression: Asthma - Discharge Information *PRESCRIPTION DRUG MONITORING PROGRAM REVIEWED*: Not Applicable *COPY OF PRESCRIPTION DRUG MONITORING REPORT IN PATIENT MICHAEL: Not Applicable Instructions: Asthma, Adult Referrals: PCP,None [Primary Care Provider] - Forms: ED Department Discharge Additional Instructions: The following information is given to patients seen in the emergency department who are being discharged to home. This information is to outline your options for follow-up care. We provide all patients seen in our emergency department with a follow-up referral. The need for follow-up, as well as the timing and circumstances, are variable depending upon the specifics of your emergency department visit. If you don't have a primary care physician on staff, we will provide you with a referral. We always advise you to contact your personal physician following an emergency department visit to inform them of the circumstance of the visit and for follow-up with them and/or the need for any referrals to a consulting specialist. The emergency department will also refer you to a specialist when appropriate. This referral assures that you have the opportunity for follow-up care with a specialist. All of these measure are taken in an effort to provide you with optimal care, which includes your follow-up. Under all circumstances we always encourage you to contact your private physician who remains a resource for coordinating your care. When calling for follow-up care, please make the office aware that this follow-up is from your recent emergency room visit. If for any reason you are refused follow-up, please contact the [facility] Emergency Department at and asked to speak to the emergency department charge nurse. Please follow up with your primary care physician. If you do not have a primary care physician, see below: [facility] [address] [place] [id number] [facility] [address] [place] [address] He was seen today for shortness of breath and you are also concerned about her anxiety. There is no test for anxiety but we list your lungs there is no wheezing you were satting well oxygen saturation. We also did x-ray that was clear. If you have any other concerning signs or symptom please return to the ED. We did send you home with some Pepcid as you requested. Sepsis Event Note (ED) - Focused Exam Vital Signs: Vital Signs Temp Pulse Resp BP Pulse Ox 08/06/20 21:10 97.0 F 84 18 118/79 97 - Assessment/Plan Plan: Patient is a 49-year-old female who presents today for shortness of breath. Patient has clear lungs on exam and satting 100% on room air as well. Will obtain x-ray labs EKG and reassess.
[2020-08-06] MEDS ORDERED: Alum Hydrox/Mag Hydrox/Simeth 15 ML, Lidocaine 2% 5 ML PO ONE ×2 (21:22)
[2020-08-06 21:48] LABS: BLOOD UREA NITROGEN,BUN 13 mg/dL (7.0-18.0); CARBON DIOXIDE,CO2 19.6 mmol/L (21.0-32.0); CHLORIDE,CL 106 mmol/L (98-107); GLUCOSE RANDOM 102 mg/dL (74-106); LIPASE 33 U/L (73-393); POTASSIUM,K 3.6 mmol/L (3.5-5.1); SODIUM,NA 139 mmol/L (136-145)
--- NOTE | 2020-08-06 21:55 | CR ---
Indication: Chest pain Technique: Chest 1 view Comparison: July 01, 2020 Findings/Impression: Cardiovascular and mediastinum: Heart size and vasculature are normal in caliber and appearance. Mediastinum is within normal limits. Lungs and pleural space: Lungs are clear. No sign of infiltrate or mass. No sign of pleural effusion. No pneumothorax. Bones and soft tissues: No significant findings. Dictated by Lala Guajardo MD @ 08/06/2020 9:54:[address] Lala Guajardo @ Aug 06 2020 9:54PM
[2020-08-06 22:27] VITALS: BP 128/74; PULSE 72
== END 2020-08-06 22:32 | disposition home or self-care (01) ==
LOC: MW.ED 21:04
DX: J45.909 Unspecified asthma, uncomplicated (principal); K21.9 Gastro-esophageal reflux disease without esophagitis; G30.9 Alzheimer's disease, unspecified; F02.80 Dementia in other diseases classified elsewhere, unspecified severity, without behavioral disturbance, psychotic disturbance, mood disturbance, and anxiety; Z79.899 Other long term (current) drug therapy
CPT/HCPCS: 36415; 71045; 80053; 82550; 83690; 83735; 84100; 84484; 84703; 85025; 93005; 99285; A9270; 93010; 99284

== ENCOUNTER 2020-10-02 01:42 | Emergency (ER) | payer MEDICAID ==
[2020-10-02] MEDS ORDERED: Sodium Chloride 0.9% 10 ML Syringe FLUSH PRN (01:55)
[2020-10-02] MEDS ORDERED: Ketorolac 15 MG/ML SDV IVPUSH ONE (01:55)
[2020-10-02] MEDS ORDERED: Sodium Chloride 0.9% 2.5 ML Syringe FLUSH PRN (01:55)
--- NOTE | 2020-10-02 02:03 | EDM.PDOC ---
ED HPI GENERAL MEDICAL PROBLEM - General Chief Complaint: Chest Pain Stated Complaint: CHEST PAIN Time Seen by Provider: 10/02/20 01:49 - History of Present Illness INITIAL COMMENTS - FREE TEXT/NARRATIVE: HISTORY AND PHYSICAL: History of present illness: This is a 50-year-old female with a history of asthma and anxiety who presents ER today secondary to left-sided chest pain that started approximately 5 to 10 minutes prior to arrival to the ED. Patient reports that she was sitting on the couch watching TV when she started feeling sharp discomfort underneath her left breast. Patient reports the pain increased with deep inspiration and cough. Patient has any shortness of breath, diaphoresis, pain rating down her jaw back or arm, nausea or vomiting. Patient denies any recent fevers, shakes, chills, nausea, vomiting, diarrhea, dysuria Or frequency, urgency, shortness of breath. Patient has abdominal pain or discomfort. Patient has any melena or bright red blood per rectum. Patient has any calf tenderness or swelling. Patient denies any hemoptysis. Review of systems: As per history of present illness and below otherwise all systems reviewed and negative. Past medical history: As per history of present illness and as reviewed below otherwise noncontributory. Surgical history: As per history of present illness and as reviewed below otherwise noncontributory. Social history: No reported history of drug abuse. Family history: As per history of present illness and as reviewed below otherwise noncontributory. Physical exam: HEENT: Atraumatic, normocephalic, pupils reactive, negative for conjunctival pallor or scleral icterus, mucous membranes moist, throat clear, neck supple, nontender, trachea midline. Lungs: Clear to auscultation, breath sounds equal bilaterally, chest nontender. Heart: S1S2, regular, negative for clicks, rubs, or JVD. Abdomen: Soft, nondistended, nontender. Negative for masses or hepatosplenomegaly. Negative for costovertebral tenderness. Pelvis: Stable nontender. Genitourinary: Deferred. Rectal: Deferred. Extremities: Atraumatic, negative for cords or calf pain. Neurovascular unremarkable. Neuro: Awake, alert, oriented. Cranial nerves II through XII unremarkable. Cerebellum unremarkable. Motor and sensory unremarkable throughout. Exam nonfocal. Patient with 100% reproducible pain underneath her left breast. Patient has pain with palpation pain with deep inspiration. Diagnostics: EKG date 10/02/2020 1:46 AM EKG: As interpreted by ER physician: Yudy: Nonspecific ST-T wave abnormalities Normal axis No evidence of ST elevation MA Normal sinus rhythm heart rate of 79 Chest Xray: Normal cardiac silhouette No infiltrates or effusions identified. No PTX No evidence of acute bony fracture. As interpreted by ER MD: [employer]: Toradol 15 mg IV Assessment and plan: 50-year-old with a history of asthma and anxiety who presents ER today secondary to pain under her left breast while she was sitting watching TV. Patient reports no pain rating down her arms or back, no diaphoresis, no shortness of breath, nonexertional, increases deep inspiration and cough. Patient's pain is highly consistent with acute coronary syndrome or cardiac source of chest pain. Patient's pain appears to be more consistent with reproducible mechanical chest pain. Patient will get a CBC, CMP and we will reevaluate. Patient has been given Toradol 15 mg IV and will be reevaluated. Definitive disposition and diagnosis as appropriate pending reevaluation and review of above. 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 Cardiovascular History: Reports: None Respiratory History: Reports: Asthma Gastrointestinal History: Reports: GERD Genitourinary History: Reports: None 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: Musculoskeletal History: Reports: None Neurological History: Reports: Alzheimers Disease Other Neuro History: son states "jerking" all her life, also questionable Alzheimers Psychiatric History: Reports: Anxiety, Bipolar, Depression, Emotional Problems, Mood Swings, PTSD Other Psychiatric History: On meds, has not taken them for about 8 months Endocrine/Metabolic History: Reports: None Insulin Pump Model and Events Manager: None Hematologic History: Reports: Anemia Immunologic History: Reports: None Oncologic (Cancer) History: Reports: None Dermatologic History: Reports: None - Infectious Disease History Infectious Disease History: Reports: Chicken Pox - Past Surgical History Head Surgeries/Procedures: Reports: None HEENT Surgical History: Reports: None Respiratory Surgical History: Reports: None GI Surgical History: Reports: None Female Surgical History: Reports: Tubal Ligation Neurological Surgical History: Reports: None Social & Family History - Family History Family Medical History: No Pertinent Family History - Caffeine Use Caffeine Use: Reports: Coffee - Recreational Drug Use Recreational Drug Use: No ED ROS GENERAL - Review of Systems Review Of Systems: See Below ED EXAM, GENERAL - Physical Exam Exam: See Below Course - Vital Signs Last Recorded V/S: Last Vital Signs Temp 98 F 10/02/20 01:45 Pulse 76 10/02/20 02:45 Resp 18 10/02/20 02:45 BP 113/84 10/02/20 02:45 Pulse Ox 100 10/02/20 02:45 - Orders/Labs/Meds Orders: Active Orders 24 hr Category Date Time Status Sodium Chloride 0.9% [Saline Flush] Med 10/02/20 01:55 Active 10 ml FLUSH ASDIRECTED PRN Sodium Chloride 0.9% [Saline Flush] Med 10/02/20 01:55 Active 2.5 ml FLUSH ASDIRECTED PRN Saline Lock Insert [OM.PC] Stat [facility] 10/02/20 01:55 Ordered Medication Orders Sodium Chloride (Sodium Chloride 0.9% 10 Ml Syringe) 10 ml FLUSH ASDIRECTED PRN PRN Reason: Keep Vein Open Sodium Chloride (Sodium Chloride 0.9% 2.5 Ml Syringe) 2.5 ml FLUSH ASDIRECTED PRN PRN Reason: Keep Vein Open Labs: Laboratory Tests 10/02/20 10/02/20 10/02/20 Range/Units 02:00 02:00 02:00 WBC 12.13 H (4.0-11.0) K/uL RBC 4.35 (4.30-5.90) M/uL Hgb 12.8 (12.0-16.0) g/dL Hct 37.5 (36.0-46.0) % MCV 86.2 (80.0-98.0) fL MCH 29.4 (27.0-32.0) pg MCHC 34.1 (31.0-37.0) g/dL RDW Std Deviation 47.5 (28.0-62.0) fl RDW Coeff of Maddison 15 (11.0-15.0) % Plt Count 311 (150-400) K/uL MPV 9.50 (7.40-12.00) fL Neut % (Auto) 61.5 (48.0-80.0) % Lymph % (Auto) 26.5 (16.0-40.0) % [place] % (Auto) 9.1 (0.0-15.0) % Eos % (Auto) 2.3 (0.0-7.0) % Baso % (Auto) 0.6 (0.0-1.5) % Neut # (Auto) 7.5 H (1.4-5.7) K/uL Lymph # (Auto) 3.2 H (0.6-2.4) K/uL [place] # (Auto) 1.1 H (0.0-0.8) K/uL Eos # (Auto) 0.3 (0.0-0.7) K/uL Baso # (Auto) 0.1 (0.0-0.1) K/uL Nucleated RBC % 0.0 /100WBC Nucleated RBCs # 0 K/uL D-Dimer, Quantitative 0.89 H (0.0-0.50) mg/L FEU Sodium 136 (136-145) mmol/L Potassium 4.3 (3.5-5.1) mmol/L Chloride 101 (98-107) mmol/L Carbon Dioxide 23.6 (21.0-32.0) mmol/L BUN 13 (7.0-18.0) mg/dL Creatinine 1.1 H (0.6-1.0) mg/dL Est Cr Clr Drug Dosing TNP Estimated GFR (MDRD) > 60.0 ml/min Glucose 110 H (74-106) mg/dL Calcium 8.1 L (8.5-10.1) mg/dL Total Bilirubin 0.2 (0.2-1.0) mg/dL AST 21 (15-37) IU/L ALT 21 (14-63) IU/L Alkaline Phosphatase 87 (46-116) U/L Troponin I < 0.050 (0.000-0.056) ng/mL Total Protein 7.0 (6.4-8.2) g/dL Albumin 3.2 L (3.4-5.0) g/dL Globulin 3.8 (2.6-4.0) g/dL Albumin/Globulin Ratio 0.8 L (0.9-1.6) Meds: Medications Generic Name Dose Route Start Last Admin Trade Name Freq PRN Reason Stop Dose Admin Sodium Chloride 10 ml 10/02/20 01:55 Sodium Chloride 0.9% 10 Ml Syringe FLUSH ASDIRECTED PRN Keep Vein Open Sodium Chloride 2.5 ml 10/02/20 01:55 Sodium Chloride 0.9% 2.5 Ml Syringe FLUSH ASDIRECTED PRN Keep Vein Open Discontinued Medications Generic Name Dose Route Start Last Admin Trade Name Freq PRN Reason Stop Dose Admin Iopamidol 75 ml 10/02/20 03:30 10/02/20 03:31 Iopamidol 755 Mg/Ml 500 Ml Multipack Bottle IVPUSH 10/02/20 03:31 75 ml ONETIME STA Administration Ketorolac Tromethamine 15 mg 10/02/20 01:55 10/02/20 02:10 Ketorolac 15 Mg/Ml Sdv IVPUSH 10/02/20 01:56 15 mg ONETIME ONE Administration Departure - Departure Time of Disposition: 04:03 Disposition: Home, Self-Care 01 Condition: Good Clinical Impression: Nonspecific chest pain - Discharge Information Prescriptions: Ibuprofen 600 mg PO Q6HR PRN #30 tablet PRN Reason: Pain Instructions: Nonspecific Chest Pain, Adult Referrals: PCP,None [Primary Care Provider] - Forms: ED Department Discharge Additional Instructions: You were seen and evaluated in ER today secondary to pain in your chest. The pain in your chest does not appear to be consistent with a cardiac etiology. You have been given medication in the ED to help take away the inflammation in that area. You will be discharged home with a prescription for ibuprofen. Your labs, chest x-ray and EKG were all within normal limits. Please make an appointment see your family doctor next week. The following information is given to patients seen in the emergency department who are being discharged to home. This information is to outline your options for follow-up care. We provide all patients seen in our emergency department with a follow-up referral. The need for follow-up, as well as the timing and circumstances, are variable depending upon the specifics of your emergency department visit. If you don't have a primary care physician on staff, we will provide you with a referral. We always advise you to contact your personal physician following an emergency department visit to inform them of the circumstance of the visit and for follow-up with them and/or the need for any referrals to a consulting specialist. The emergency department will also refer you to a specialist when appropriate. This referral assures that you have the opportunity for follow-up care with a specialist. All of these measure are taken in an effort to provide you with optimal care, which includes your follow-up. Under all circumstances we always encourage you to contact your private physician who remains a resource for coordinating your care. When calling for follow-up care, please make the office aware that this follow-up is from your recent emergency room visit. If for any reason you are refused follow-up, please contact the [facility] Emergency Department at and asked to speak to the emergency department charge nurse. [facility] [address] [place] [id number] [address] [place] [address] Sepsis Event Note (ED) - Focused Exam Vital Signs: Vital Signs Temp Pulse Resp BP Pulse Ox 10/02/20 02:45 76 18 113/84 100 10/02/20 01:45 98 F 79 18 116/76 97 - My Orders Last 24 Hours: My Active Orders 10/02/20 01:55 Sodium Chloride 0.9% [Saline Flush] 10 ml FLUSH ASDIRECTED PRN Sodium Chloride 0.9% [Saline Flush] 2.5 ml FLUSH ASDIRECTED PRN Saline Lock Insert [OM.PC] Stat - Assessment/Plan Last 24 Hours: My Active Orders 10/02/20 01:55 Sodium Chloride 0.9% [Saline Flush] 10 ml FLUSH ASDIRECTED PRN Sodium Chloride 0.9% [Saline Flush] 2.5 ml FLUSH ASDIRECTED PRN Saline Lock Insert [OM.PC] Stat
--- NOTE | 2020-10-02 02:25 | CR ---
INDICATION: Chest pain TECHNIQUE: Chest 1 views COMPARISON: 08/06/2020 FINDINGS: Cardiovascular and mediastinum: Heart size and vasculature are normal in caliber and appearance. Lungs and pleural spaces: Lungs are clear. No sign of infiltrate or mass. No sign of pleural effusion. No pneumothorax. Bones and soft tissues: No significant findings. IMPRESSION: No acute findings and no significant changes from the prior exam. Dictated by John Roy MD @ 10/02/2020 2:23:[address] John Roy @ Oct 02 2020 2:23AM
[2020-10-02 02:38] LABS: BLOOD UREA NITROGEN,BUN 13 mg/dL (7.0-18.0); CARBON DIOXIDE,CO2 23.6 mmol/L (21.0-32.0); CHLORIDE,CL 101 mmol/L (98-107); GLUCOSE RANDOM 110 mg/dL (74-106); POTASSIUM,K 4.3 mmol/L (3.5-5.1); SODIUM,NA 136 mmol/L (136-145)
[2020-10-02 03:23] VITALS: BP 113/84; PULSE 76
[2020-10-02] MEDS ORDERED: Iopamidol 755 MG/ML 500 ML Multipack Bottle IVPUSH STA (03:30)
--- NOTE | 2020-10-02 03:47 | CT ---
Indication: Shortness breath. Elevated D-dimer. Technique: Multiple contiguous axial images were obtained from the thoracic inlet through the upper abdomen after the intravenous administration 75 cc Isovue 370. Please note that all CT scans at this facility use dose modulation, iterative reconstruction, and/or weight-based dosing when appropriate to reduce radiation dose to as low as reasonably achievable. Comparison: None Findings: This exam is tailored for the evaluation of pulmonary arteries. The heart is normal in size. No pericardial effusion is identified. No mediastinal, hilar, or axillary lymphadenopathy is identified. The aorta is normal in caliber. [place] mediastinal and hilar lymph nodes are identified. No lymph nodes are enlarged. The visualized portions of the liver, gallbladder, spleen, pancreas, adrenals, and kidneys are normal. No intrahepatic biliary ductal dilatation is identified. No hydronephrosis is identified. The lungs are clear. No infiltrate, pleural effusion, or pneumothorax is identified. Impression: No evidence of pulmonary embolism Please note that all CT scans at this facility use dose modulation, iterative reconstruction, and/or weight-based dosing when appropriate to reduce radiation dose to as low as reasonably achievable. Dictated by Alix Khan MD @ 10/02/2020 3:45:[address] Alix Khan @ Oct 02 2020 3:45AM
== END 2020-10-02 04:11 | disposition home or self-care (01) ==
LOC: MW.ED 01:42
DX: R07.89 Other chest pain (principal); K21.9 Gastro-esophageal reflux disease without esophagitis; Z79.899 Other long term (current) drug therapy
CPT/HCPCS: 36415; 71045; 71275; 80053; 84484; 85025; 85379; 93005; 96374; 99285; J1885; Q9967; 93010; 99284

== ENCOUNTER 2020-11-12 16:58 | Emergency (ER) | payer MEDICAID ==
[2020-11-12 17:31] VITALS: BP 124/88; PULSE 68
[2020-11-12] MEDS ORDERED: Ketorolac 60 MG/2 ML SDV IM ONE (17:54)
[2020-11-12] MEDS ORDERED: Orphenadrine 60 MG/2 ML Inj IM ONE (17:54)
[2020-11-12] MEDS ORDERED: traMADol 50 MG Tab PO ONE (17:55)
--- NOTE | 2020-11-12 18:17 | EDM.PDOC ---
ED HPI GENERAL MEDICAL PROBLEM - General Chief Complaint: Back Pain or Injury Stated Complaint: BACK PAIN Time Seen by Provider: 11/12/20 16:59 Source of Information: Reports: Patient History Limitations: Reports: No Limitations - History of Present Illness INITIAL COMMENTS - FREE TEXT/NARRATIVE: HISTORY AND PHYSICAL: History of present illness: Patient is a 50-year-old female who presents emergency room today with concern of left-sided mid back pain that began about 10 AM. Patient states that she has had this happen 1 other time but states that that was quite some time ago. Patient states that it has been gradual onset and states that now throughout the day when she goes to move, she feels a tightening in her back and has pain. Patient states she has not taken anything for her symptoms. Denies any trauma or injury. Denies any loss or retention of bowel bladder function or saddle anesthesia. Denies any history of IV drug use or cancer. Denies any other symptoms or concerns. Patient denies fever, chills, chest pain, shortness of breath, or cough. Denies headache, neck stiff ness, change in vision, syncope, or near syncope. Denies nausea, vomiting, abdominal pain, diarrhea, constipation, or dysuria. Has not noted any blood in urine or stool. Patient has been eating and drinking appropriately. Review of systems: As per history of present illness and below otherwise all systems reviewed and negative. Past medical history: As per history of present illness and as reviewed below otherwise noncontributory. Surgical history: As per history of present illness and as reviewed below otherwise noncontributory. Social history: See social history for further information Family history: As per history of present illness and as reviewed below otherwise no ncontributory. Physical exam: General: Patient is alert, oriented, and in no acute distress. Patient sitting on exam table, tearful on exam, holding mid thoracic back area. Vitals stable and reviewed by me. HEENT: Atraumatic, normocephalic, pupils equal and reactive bilaterally, negative for conjunctival pallor or scleral icterus, mucous membranes moist, throat clear, neck supple, nontender, trachea midline. No drooling or trismus noted. No meningeal signs. No hot potato voice noted. Lungs: Clear to auscultation, breath sounds equal bilaterally, chest nontender. Heart: S1S2, regular rate and rhythm without overt murmur Abdomen: Soft, nondistended, nontender. Negative for masses or hepatosplenomegaly. Negative for costovertebral tenderness. Pelvis: Stable nontender. Genitourinary: Deferred. Rectal: Deferred. Skin: Intact, warm, dry. No lesions or rashes noted. Extremities/musculoskeletal: No obvious deformity of the complete spine. No step-offs, or crepitus to palpation of the complete spine. Patient does have generalized tenderness everywhere to palpation on the thoracic and lumbar spine with nonspecific point tenderness. Straight leg raise intact bilaterally. Patellar reflexes intact bilaterally. Heel/toe gait intact. Otherwise, atraumatic, negative for cords or calf pain. Neurovascular unremarkable. Neuro: Awake, alert, oriented. Cranial nerves II through XII unremarkable. Cerebellum unremarkable. Motor and sensory unremarkable throughout. Exam nonfocal. Notes: Signs and symptoms are prompt return to the ED thoroughly discussed with patient. Discussed importance for follow-up with primary care provider. Voices understanding and is agreeable to plan of care. Denies any further questions or concerns at this time. Diagnostics: UA, urine hCG, thoracic and lumbar x-ray Therapeutics: Toradol, Norflex, tramadol Prescription: Diclofenac, Flexeril Impression: Thoracic back pain, unspecified Plan: 1. The medication you received today does cause drowsiness, so do not drive for the remaining day. 2. When resting please lay on a flat firm surface. Limit your mobility to prevent muscle stiffness. Get up to ambulate/move around/gentle stretching multiple times throughout the day. May alternate heat and ice to painful areas. 3. Tylenol as needed for back pain. Otherwise, take the prescribed Flexeril and diclofenac as directed. Diclofenac as an anti-inflammatory medication so do not take any additional NSAIDs with this medication, such as naproxen, ibuprofen, or Aleve. Flexeril, this medication may cause drowsiness, so do not take it while driving or needing to be functioning outside of the home. 4. Follow-up with your primary care provider as discussed. Return to the ED as needed and as discussed. Definitive disposition and diagnosis as appropriate pending reevaluation and review of above. mid back Pain Score (Numeric/FACES): 7 - Related Data Allergies Allergy/AdvReac Type Severity Reaction Status Date / Time No Known Allergies Allergy Verified 11/12/20 17:27 Home Meds: Home Meds ARIPiprazole [Abilify] 30 mg PO DAILY 07/25/16 [History] Albuterol/Ipratropium [DuoNeb 3.0-0.5 MG/3 ML] 3 ml INH Q6HRRT PRN 07/25/16 [History] Albuterol Sulfate [Albuterol Sulfate Hfa] 2 puff IH Q6HRRT PRN 07/01/20 [History] Ibuprofen [Motrin] 600 mg PO Q6H PRN #20 tab 07/21/20 [Rx] Ibuprofen 600 mg PO Q6HR PRN #30 tablet 10/02/20 [Rx] Cyclobenzaprine [Flexeril] 10 mg PO TID PRN #9 tab 11/12/20 [Rx] Diclofenac Sodium [Voltaren] 75 mg PO BIDMEALS PRN #15 tab.cr 11/12/20 [Rx] Past Medical History HEENT History: Reports: Impaired 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 Cardiovascular History: Reports: None Respiratory History: Reports: Asthma Gastrointestinal History: Reports: GERD Genitourinary History: Reports: None AGRICULTURAL SERVICES DIRECTOR History: Reports: Musculoskeletal History: Reports: None Neurological History: Reports: Alzheimers Disease Other Neuro History: son states "jerking" all her life, also questionable Alzheimers Psychiatric History: Reports: Anxiety, Bipolar, Depression, Emotional Problems, Mood Swings, PTSD Other Psychiatric History: On meds, has not taken them for about 8 months Endocrine/Metabolic History: Reports: None Insulin Pump Model and Shoemaker Apprentice: None Hematologic History: Reports: Anemia Immunologic History: Reports: None Oncologic (Cancer) History: Reports: None Dermatologic History: Reports: None - Infectious Disease History Infectious Disease History: Reports: Chicken Pox - Past Surgical History Head Surgeries/Procedures: Reports: None HEENT Surgical History: Reports: None Respiratory Surgical History: Reports: None GI Surgical History: Reports: None Female Surgical History: Reports: Tubal Ligation Neurological Surgical History: Reports: None Social & Family History - Family History Family Medical History: No Pertinent Family History - Tobacco Use Tobacco Use Status *Q: Current Every Day Tobacco User Years of Tobacco use: 25 Packs/Tins Daily: 1 - Caffeine Use Caffeine Use: Reports: Coffee, Soda - Recreational Drug Use Recreational Drug Use: No ED ROS GENERAL - Review of Systems Review Of Systems: Comprehensive ROS is negative, except as noted in HPI. ED EXAM, GENERAL - Physical Exam Exam: See Below (see dictation) Course - Vital Signs Last Recorded V/S: Last Vital Signs Temp 97.7 F 11/12/20 17:28 Pulse 68 11/12/20 17:28 Resp 18 11/12/20 17:28 BP 124/88 11/12/20 17:28 Pulse Ox 98 11/12/20 17:28 - Orders/Labs/Meds Labs: Laboratory Tests 11/12/20 11/12/20 Range/Units 17:33 17:33 Urine Color YELLOW Urine Appearance CLEAR Urine pH 6.0 (5.0-8.0) Ur Specific [place] 1.025 (1.001-1.035) Urine Protein NEGATIVE (NEGATIVE) mg/dL Urine Glucose (UA) NEGATIVE (NEGATIVE) mg/dL Urine Ketones NEGATIVE (NEGATIVE) mg/dL Urine Occult Blood MODERATE H (NEGATIVE) Urine Nitrite NEGATIVE (NEGATIVE) Urine Bilirubin NEGATIVE (NEGATIVE) Urine Urobilinogen 0.2 (<2.0) EU/dL Ur Leukocyte Esterase NEGATIVE (NEGATIVE) Urine RBC 0-2 (0-2/HPF) Urine WBC NONE SEEN (0-5/HPF) Ur Epithelial Cells RARE (NONE-FEW) Urine Bacteria NOT SEEN (NEGATIVE) Urine HCG, Qual NEGATIVE (NEGATIVE) Meds: Medications Discontinued Medications Generic Name Dose Route Start Last Admin Trade Name Rustyq PRN Reason Stop Dose Admin Ketorolac Tromethamine 60 mg 11/12/20 17:54 11/12/20 18:23 Ketorolac 60 Mg/2 Ml Sdv IM 11/12/20 17:55 60 mg ONETIME ONE Administration Orphenadrine Citrate 60 mg 11/12/20 17:54 11/12/20 18:23 Orphenadrine 60 Mg/2 Ml Inj IM 11/12/20 17:55 60 mg ONETIME ONE Administration Tramadol HCl 50 mg 11/12/20 17:55 11/12/20 18:26 Tramadol 50 Mg Tab PO 11/12/20 17:56 50 mg ONETIME ONE Administration Departure - Departure Time of Disposition: 10:07 Disposition: Home, Self-Care 01 Clinical Impression: Thoracic back pain Qualifiers: Chronicity: acute Back pain laterality: unspecified Qualified Code(s): M54.6 - Pain in thoracic spine - Discharge Information Prescriptions: Cyclobenzaprine [Flexeril] 10 mg PO TID PRN #9 tab PRN Reason: Spasms Diclofenac Sodium [Voltaren] 75 mg PO BIDMEALS PRN #15 tab.cr PRN Reason: Pain Instructions: Acute Back Pain, Adult Referrals: PCP,None [Primary Care Provider] - Forms: ED Department Discharge Additional Instructions: The following information is given to patients seen in the emergency department who are being discharged to home. This information is to outline your options for follow-up care. We provide all patients seen in our emergency department with a follow-up referral. The need for follow-up, as well as the timing and circumstances, are variable depending upon the specifics of your emergency department visit. If you don't have a primary care physician on staff, we will provide you with a referral. We always advise you to contact your personal physician following an emergency department visit to inform them of the circumstance of the visit and for follow-up with them and/or the need for any referrals to a consulting specialist. The emergency department will also refer you to a specialist when appropriate. This referral assures that you have the opportunity for follow-up care with a specialist. All of these measure are taken in an effort to provide you with optimal care, which includes your follow-up. Under all circumstances we always encourage you to contact your private physician who remains a resource for coordinating your care. When calling for follow-up care, please make the office aware that this follow-up is from your recent emergency room visit. If for any reason you are refused follow-up, please contact the [facility] Emergency Department at and asked to speak to the emergency department charge nurse. [facility] [address] [place] [address] [id number] [address] [id number] 1. The medication you received today does cause drowsiness, so do not drive for the remaining day. 2. When resting please lay on a flat firm surface. Limit your mobility to prevent muscle stiffness. Get up to ambulate/move around/gentle stretching mult iple times throughout the day. May alternate heat and ice to painful areas. 3. Tylenol as needed for back pain. Otherwise, take the prescribed Flexeril and diclofenac as directed. Diclofenac as an anti-inflammatory medication so do not take any additional NSAIDs with this medication, such as naproxen, ibuprofen, or Aleve. Flexeril, this medication may cause drowsiness, so do not take it while driving or needing to be functioning outside of the home. 4. Follow-up with your primary care provider as discussed. Return to the ED as needed and as discussed.
--- NOTE | 2020-11-12 19:35 | CR ---
INDICATION: Pain. FINDINGS: Three views of the lumbar spine show normal height and alignment of the lumbar vertebral bodies. No evidence of acute fracture or dislocation. Diffuse marginal osteophyte formation. No other bony or soft tissue abnormalities identified. Dictated by Aram Hill MD @ 11/12/2020 7:34:51 PM (Electronically Signed)
--- NOTE | 2020-11-12 19:37 | CR ---
INDICATION: Pain. FINDINGS: Three views of the thoracic spine show normal height and alignment of the thoracic vertebral bodies. No evidence of acute fracture or dislocation. No other bony or soft tissue abnormalities identified. Dictated by Aram Hill MD @ 11/12/2020 7:36:12 PM (Electronically Signed)
== END 2020-11-12 19:57 | disposition home or self-care (01) ==
LOC: MW.ED 16:58
DX: M54.6 Pain in thoracic spine (principal); J45.909 Unspecified asthma, uncomplicated; Z72.0 Tobacco use; Z79.899 Other long term (current) drug therapy
CPT/HCPCS: 72072; 72100; 81001; 81025; 96372; 99283; A9270; J1885; J2360

== ENCOUNTER 2021-02-12 04:44 | Emergency (ER) | payer MEDICAID ==
[2021-02-12] MEDS ORDERED: Ondansetron 4 MG/2 ML SDV IVPUSH ONE ×2 (04:56→06:10)
[2021-02-12] MEDS ORDERED: Sodium Chloride 0.9% 2.5 ML Syringe FLUSH PRN (04:56)
[2021-02-12] MEDS ORDERED: Sodium Chloride 0.9% 10 ML Syringe FLUSH PRN (04:56)
[2021-02-12] MEDS ORDERED: Sodium Chloride 0.9% 1,000 ML IV ONE (04:56)
--- NOTE | 2021-02-12 05:29 | EDM.PDOC ---
<Elpidio Jimenes - Last Filed: 02/12/21 06:37> ED HPI GENERAL MEDICAL PROBLEM - General Chief Complaint: Abdominal Pain Stated Complaint: VOMITING Time Seen by Provider: 02/12/21 05:24 - History of Present Illness INITIAL COMMENTS - FREE TEXT/NARRATIVE: HISTORY AND PHYSICAL: History of present illness: This is a 50-year-old female with no significant history of hypertension, diabetes, liver, lung, kidney problems, pancreatitis, abdominal or chest surgeries who presents ER today secondary to acute onset of abdominal pain with associated nausea and vomiting and loose stools that started approximately midnight tonight. Patient's significant other is at bedside and reports that she was in her usual state of health yesterday and was tolerating normal p.o. solids and liquids without any difficulty. He reports that her last p.o. intake was approximately 7 PM last night and had no difficulty at that time. He reports that they went to bed and when she woke up around midnight she been having episodes of dry heaving, vomiting bilious material and abdominal pain. Patient denies any recent fevers, shakes, chills, dysuria, frequency, urgency, vaginal discharge, vaginal bleeding. Patient's last menstrual period was approximately 2 weeks ago. Patient denies any recent cough cold or rhinorrhea. Patient denies any known Covid exposures. Review of systems: As per history of present illness and below otherwise all systems reviewed and negative. Past medical history: As per history of present illness and as reviewed below otherwise noncontributory. Surgical history: As per history of present illness and as reviewed below otherwise noncontributory. Social history: No reported history of drug abuse. Family history: As per history of present illness and as reviewed below otherwise n oncontributory. Physical exam: This patient was seen and evaluated during the 2019 SARS-CoV-2 novel coronavirus pandemic period. Community viral transmission is ongoing at time of this encounter and the emergency department is operating under pandemic response procedures. Constitutional: Patient is oriented to person, place, and time. Appears well- developed and well-nourished. No distress. HEENT: Moist mucous membranes Head: Normocephalic and atraumatic Eyes: Right eye exhibits no discharge. Left eye exhibits no discharge. No scleral icterus Neck: Normal range of motion. No tracheal deviation present. Cardiovascular: Normal rate and regular rhythm. Pulmonary: Effort normal, no respiratory distress. Abd: Soft, nondistended, no rebound/guarding, no psoas or obturator signs, no tenderness at Mcberney's point, no Ellison's sign. Pt does not present with an exam that would be consistent with an acute surgical abdomen at this time. Mild tenderness to palpation in the midepigastric/periumbilical region. Musculoskeletal: Normal range of motion Neurologic: Alert and oriented to person, place and time. Skin: [place], warm and dry. Psychiatric: Normal mood and affect. Behavior is normal. Judgment and thought content normal. Nursing note and vital signs have been reviewed Diagnostics: CBC, CMP, lipase, Covid's, influenza, urinalysis, urine , alcohol level. Therapeutics: NSS x1 L, Zofran Assessment and plan: During the course of the patient's evaluation for abdominal pain, kidney stone, pancreatitis, cholecystitis, diverticulitis, abdominal aortic aneurysm, myocardial infarction, ischemic bowel, ruptured peptic ulcer, ruptured viscus, UTI,and appendicitis as well as other causes of abdominal pain have been considered. 50-year-old female who presents ER today secondary to acute onset of nausea vomiting diarrhea and abdominal pain that started approximately midnight tonight. Mother reports that she does smoke and she does drink alcohol on a daily basis. They deny any history of pancreatitis in the past. We will obtain a CT scan of the abdomen pelvis without IV contrast to further assess and evaluate her abdominal discomfort. We will get a CBC CMP lipase to assess her electrolytes and liver/pancreas function. We will get a urine test to rule out UTI. Definitive disposition and diagnosis as appropriate pending reevaluation and re view of above. 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 Cardiovascular History: Reports: None Respiratory History: Reports: Asthma Gastrointestinal History: Reports: GERD Genitourinary History: Reports: None RESOURCE EFFICIENCY MANAGER History: Reports: Musculoskeletal History: Reports: None Neurological History: Reports: Alzheimers Disease Other Neuro History: son states "jerking" all her life, also questionable Alzheimers Psychiatric History: Reports: Anxiety, Bipolar, Depression, Emotional Problems, Mood Swings, PTSD Other Psychiatric History: On meds, has not taken them for about 8 months Endocrine/Metabolic History: Reports: None Insulin Pump Model and Remarketing Manager: None Hematologic History: Reports: Anemia Immunologic History: Reports: None Oncologic (Cancer) History: Reports: None Dermatologic History: Reports: None - Infectious Disease History Infectious Disease History: Reports: Chicken Pox - Past Surgical History Head Surgeries/Procedures: Reports: None HEENT Surgical History: Reports: None Respiratory Surgical History: Reports: None GI Surgical History: Reports: None Female Surgical History: Reports: Tubal Ligation Neurological Surgical History: Reports: None Social & Family History - Family History Family Medical History: No Pertinent Family History - Caffeine Use Caffeine Use: Reports: Coffee, Soda ED ROS GENERAL - Review of Systems Review Of Systems: See Below ED EXAM, GENERAL - Physical Exam Exam: See Below Departure - Departure Disposition: Home, Self-Care 01 Clinical Impression: Vomiting - Discharge Information Prescriptions: Ondansetron [Zofran ODT] 4 mg PO Q6H PRN #8 tab.dis PRN Reason: Nausea/Vomiting Instructions: Nausea and Vomiting, Adult, [id number] Referrals: Teresa Lincoln DO [Primary Care Provider] - Forms: ED Department Discharge Additional Instructions: Your evaluated today on an emergent basis. At this time all of your work-up was normal. We did provide you with some fluids and some nausea medication. I recommend that she continue with fluid hydration at home. I did send you a prescription for antinausea medication to your pharmacy please use this as needed for nausea. You can use this medication every 6 hours. We did send you home with 2 tablets given that the pharmacies are closed today. Please return for any worsening symptoms such as worsening pain inability to eat or drink or you have any other concerns. Please follow-up with your primary care physician in 3 to 5 days [facility] [address] [place] [address] [id number] [address] [address] The patient is informed of any results of their evaluation and diagnostic workup and all questions are answered. They are given discharge instructions and return precautions. The patient is stable for discharge. The patient states they understand and agree with the plan and that they will return if their symptoms get worse or if they have any new concerns. The following information is given to patients seen in the emergency department who are being discharged to home. This information is to outline your options for follow-up care. We provide all patients seen in our emergency department with a follow-up referral. The need for follow-up, as well as the timing and circumstances, are variable depending upon the specifics of your emergency department visit. If you don't have a primary care physician on staff, we will provide you with a referral. We always advise you to contact your personal physician following an emergency department visit to inform them of the circumstance of the visit and for follow-up with them and/or the need for any referrals to a consulting speci alist. The emergency department will also refer you to a specialist when appropriate. This referral assures that you have the opportunity for follow-up care with a specialist. All of these measure are taken in an effort to provide you with optimal care, which includes your follow-up. Under all circumstances we always encourage you to contact your private physician who remains a resource for coordinating your care. When calling for follow-up care, please make the office aware that this follow-up is from your recent emergency room visit. If for any reason you are refused follow-up, please contact the [facility] Emergency Department at and asked to speak to the emergency department charge nurse. <Marvin Bobo - Last Filed: 02/12/21 13:15> ED HPI GENERAL MEDICAL PROBLEM - History of Present Illness INITIAL COMMENTS - FREE TEXT/NARRATIVE: Patient was signed out to me by Dr. Jimenes pending urinalysis and reevaluation at 7 AM. I promptly performed a detailed physical examination and my examination was done after ED treatments were initiated by the signout provider. Patient has been under the care of previous provider up until this point. In short this is a 50-year-old woman without any past medical history who presents to the emergency department with abdominal pain, vomiting. Patient's vital signs upon entrance into the emergency department were normal and all laboratory analysis and CT were normal. Covid and influenza were negative. On my examination patient's abdomen exam was unrevealing there was no evidence of rebound or guarding. Mildly hyperactive bowel sounds. On reevaluation patient had tolerated some fluids however IV fluids had not yet completed. I did discuss her at this time that we will continue to monitor in the emergency department for continued improvement in her vomiting and awaiting a urinalysis. Urinalysis was negative for infection. On reevaluation patient had no further episodes of vomiting. At this time I did discuss with her that she should continue with p.o. fluid hydration at home. I did provide her with Zofran for nausea relief and sent her a prescription to the pharmacy. She was given strict return precautions. The patient was amenable to discharge and had no further questions Course - Vital Signs Last Recorded V/S: Last Vital Signs Temp 36.2 C 02/12/21 05:00 Pulse 89 02/12/21 05:00 Resp 18 02/12/21 09:08 BP 126/79 02/12/21 09:08 Pulse Ox 100 02/12/21 09:08 - Orders/Labs/Meds Orders: Active Orders 24 hr Category Date Time Status Sodium Chloride 0.9% [Saline Flush] Med 02/12/21 04:56 Active 10 ml FLUSH ASDIRECTED PRN Sodium Chloride 0.9% [Saline Flush] Med 02/12/21 04:56 Active 2.5 ml FLUSH ASDIRECTED PRN Saline Lock Insert [OM.PC] Stat Oth 02/12/21 04:56 Ordered Medication Orders Sodium Chloride (Sodium Chloride 0.9% 10 Ml Syringe) 10 ml FLUSH ASDIRECTED PRN PRN Reason: Keep Vein Open Last Admin: 02/12/21 05:54 Dose: 10 ml Documented by: MARYANN Sodium Chloride (Sodium Chloride 0.9% 2.5 Ml Syringe) 2.5 ml FLUSH ASDIRECTED PRN PRN Reason: Keep Vein Open Last Admin: 02/12/21 05:54 Dose: 2.5 ml Documented by: MARYANN Labs: Laboratory Tests 02/12/21 02/12/21 02/12/21 Range/Units 05:52 05:52 05:52 WBC 10.96 (4.0-11.0) K/uL RBC 4.60 (4.30-5.90) M/uL Hgb 13.6 (12.0-16.0) g/dL Hct 40.0 (36.0-46.0) % MCV 87.0 (80.0-98.0) fL MCH 29.6 (27.0-32.0) pg MCHC 34.0 (31.0-37.0) g/dL RDW Std Deviation 46.5 (28.0-62.0) fl RDW Coeff of Maddison 15 (11.0-15.0) % Plt Count 264 (150-400) K/uL MPV 10.10 (7.40-12.00) fL Neut % (Auto) 83.1 H (48.0-80.0) % Lymph % (Auto) 11.0 L (16.0-40.0) % [place] % (Auto) 5.5 (0.0-15.0) % Eos % (Auto) 0.1 (0.0-7.0) % Baso % (Auto) 0.3 (0.0-1.5) % Neut # (Auto) 9.1 H (1.4-5.7) K/uL Lymph # (Auto) 1.2 (0.6-2.4) K/uL [place] # (Auto) 0.6 (0.0-0.8) K/uL Eos # (Auto) 0.0 (0.0-0.7) K/uL Baso # (Auto) 0.0 (0.0-0.1) K/uL Nucleated RBC % 0.0 /100WBC Nucleated RBCs # 0 K/uL Sodium 138 (136-145) mmol/L Potassium 4.1 (3.5-5.1) mmol/L Chloride 101 (98-107) mmol/L Carbon Dioxide 26.3 (21.0-32.0) mmol/L BUN 13 (7.0-18.0) mg/dL Creatinine 0.8 (0.6-1.0) mg/dL Est Cr Clr Drug Dosing 73.46 mL/min Estimated GFR (MDRD) > 60.0 ml/min Glucose 137 H (74-106) mg/dL Calcium 8.9 (8.5-10.1) mg/dL Total Bilirubin 0.3 (0.2-1.0) mg/dL AST 30 (15-37) IU/L ALT 21 (14-63) IU/L Alkaline Phosphatase 82 (46-116) U/L Total Protein 7.7 (6.4-8.2) g/dL Albumin 3.7 (3.4-5.0) g/dL Globulin 4.0 (2.6-4.0) g/dL Albumin/Globulin Ratio 0.9 (0.9-1.6) Lipase 40 L (73-393) U/L Urine Color Urine Appearance Urine pH (5.0-8.0) Ur Specific [place] (1.001-1.035) Urine Protein (NEGATIVE) mg/dL Urine Glucose (UA) (NEGATIVE) mg/dL Urine Ketones (NEGATIVE) mg/dL Urine Occult Blood (NEGATIVE) Urine Nitrite (NEGATIVE) Urine Bilirubin (NEGATIVE) Urine Urobilinogen (<2.0) EU/dL Ur Leukocyte Esterase (NEGATIVE) Urine RBC (0-2/HPF) Urine WBC (0-5/HPF) Ur Epithelial Cells (NONE-FEW) Urine Bacteria (NEGATIVE) Urine HCG, Qual (NEGATIVE) Ethyl Alcohol <3 mg/dL Influenza Type A RNA (NEGATIVE) Influenza Type B RNA (NEGATIVE) SARS-CoV-2 RNA (KIM) (NEGATIVE) 02/12/21 02/12/21 02/12/21 Range/Units 06:20 10:51 10:51 WBC (4.0-11.0) K/uL RBC (4.30-5.90) M/uL Hgb (12.0-16.0) g/dL Hct (36.0-46.0) % MCV (80.0-98.0) fL MCH (27.0-32.0) pg MCHC (31.0-37.0) g/dL RDW Std Deviation (28.0-62.0) fl RDW Coeff of [place] (11.0-15.0) % Plt Count (150-400) K/uL MPV (7.40-12.00) fL Neut % (Auto) (48.0-80.0) % Lymph % (Auto) (16.0-40.0) % [place] % (Auto) (0.0-15.0) % Eos % (Auto) (0.0-7.0) % Baso % (Auto) (0.0-1.5) % Neut # (Auto) (1.4-5.7) K/uL Lymph # (Auto) (0.6-2.4) K/uL [place] # (Auto) (0.0-0.8) K/uL Eos # (Auto) (0.0-0.7) K/uL Baso # (Auto) (0.0-0.1) K/uL Nucleated RBC % /100WBC Nucleated RBCs # K/uL Sodium (136-145) mmol/L Potassium (3.5-5.1) mmol/L Chloride (98-107) mmol/L Carbon Dioxide (21.0-32.0) mmol/L BUN (7.0-18.0) mg/dL Creatinine (0.6-1.0) mg/dL Est Cr Clr Drug Dosing mL/min Estimated GFR (MDRD) ml/min Glucose (74-106) mg/dL Calcium (8.5-10.1) mg/dL Total Bilirubin (0.2-1.0) mg/dL AST (15-37) IU/L ALT (14-63) IU/L Alkaline Phosphatase (46-116) U/L Total Protein (6.4-8.2) g/dL Albumin (3.4-5.0) g/dL Globulin (2.6-4.0) g/dL Albumin/Globulin Ratio (0.9-1.6) Lipase (73-393) U/L Urine Color YELLOW Urine Appearance CLEAR Urine pH 8.0 (5.0-8.0) Ur Specific [place] 1.020 (1.001-1.035) Urine Protein NEGATIVE (NEGATIVE) mg/dL Urine Glucose (UA) 100 H (NEGATIVE) mg/dL Urine Ketones NEGATIVE (NEGATIVE) mg/dL Urine Occult Blood TRACE-INTACT H (NEGATIVE) Urine Nitrite NEGATIVE (NEGATIVE) Urine Bilirubin NEGATIVE (NEGATIVE) Urine Urobilinogen 0.2 (<2.0) EU/dL Ur Leukocyte Esterase NEGATIVE (NEGATIVE) Urine RBC 0-1 (0-2/HPF) Urine WBC NONE SEEN (0-5/HPF) Ur Epithelial Cells RARE (NONE-FEW) Urine Bacteria RARE (NEGATIVE) Urine HCG, Qual NEGATIVE (NEGATIVE) Ethyl Alcohol mg/dL Influenza Type A RNA NEGATIVE (NEGATIVE) Influenza Type B RNA NEGATIVE (NEGATIVE) SARS-CoV-2 RNA (KIM) NEGATIVE (NEGATIVE) Meds: Medications Generic Name Dose Route Start Last Admin Trade Name Freq PRN Reason Stop Dose Admin Sodium Chloride 10 ml 02/12/21 04:56 02/12/21 05:54 Sodium Chloride 0.9% 10 Ml Syringe FLUSH 10 ml ASDIRECTED PRN Administration Keep Vein Open Sodium Chloride 2.5 ml 02/12/21 04:56 02/12/21 05:54 Sodium Chloride 0.9% 2.5 Ml Syringe FLUSH 2.5 ml ASDIRECTED PRN Administration Keep Vein Open Discontinued Medications Generic Name Dose Route Start Last Admin Trade Name Rustyq PRN Reason Stop Dose Admin Fentanyl 50 mcg 02/12/21 06:51 02/12/21 11:19 Fentanyl 50 Mcg/Ml Sdv IVPUSH 02/12/21 06:52 Not Given ONETIME ONE Sodium Chloride 1,000 mls @ 999 mls/hr 02/12/21 04:56 02/12/21 05:53 Normal Saline IV 02/12/21 05:56 999 mls/hr .Bolus ONE Administration Lactated Ringer's 1,000 mls @ 999 mls/hr 02/12/21 06:51 02/12/21 09:40 Ringers, Lactated IV 02/12/21 07:51 999 mls/hr .BOLUS ONE Administration Ondansetron HCl 4 mg 02/12/21 04:56 02/12/21 05:51 Ondansetron 4 Mg/2 Ml Sdv IVPUSH 02/12/21 04:57 4 mg ONETIME ONE Administration Ondansetron HCl 4 mg 02/12/21 06:10 02/12/21 06:18 Ondansetron 4 Mg/2 Ml Sdv IVPUSH 02/12/21 06:11 4 mg ONETIME ONE Administration Ondansetron HCl 4 mg 02/12/21 11:00 02/12/21 11:11 Ondansetron 4 Mg Tab.Dis PO 02/12/21 11:01 4 mg ONETIME ONE Administration Ondansetron HCl 4 mg 02/12/21 11:00 02/12/21 11:11 Ondansetron 4 Mg Tab.Dis PO 02/12/21 11:01 4 mg ONETIME ONE Administration Promethazine HCl 12.5 mg 02/12/21 08:42 02/12/21 08:52 Promethazine 12.5 Mg Supp RECTAL 02/12/21 08:43 12.5 mg ONETIME ONE Administration Departure - Departure Time of Disposition: 10:59 Condition: Fair - Discharge Information *PRESCRIPTION DRUG MONITORING PROGRAM REVIEWED*: No *COPY OF PRESCRIPTION DRUG MONITORING REPORT IN PATIENT MICHAEL: No Sepsis Event Note (ED) - Focused Exam Vital Signs: Vital Signs Temp Pulse Resp BP Pulse Ox 02/12/21 09:08 18 126/79 100 02/12/21 05:00 36.2 C 89 20 116/84 96
--- NOTE | 2021-02-12 06:37 | CT ---
INDICATION: Abdominal pain TECHNIQUE: Axial images were obtained from the diaphragm to the pubic symphysis. Reformats were obtained in the coronal and sagittal plane. IV Contrast: None Oral Contrast: None COMPARISON: Abdomen and pelvis CT 07/21/2020 FINDINGS: Lower chest: Unremarkable. Liver: Unremarkable. Normal in size and attenuation. No masses. Gallbladder and bile ducts: Unremarkable. No stones or inflammation. No biliary dilatation. Spleen: Unremarkable. Normal in size without mass. Pancreas: Unremarkable. No mass or inflammation. Adrenal glands: Unremarkable. No nodules. Kidneys: Phleboliths within the pelvis without evidence of hydronephrosis or ureteral stone. Vasculature: Unremarkable. GI tract: The stomach is unremarkable. No dilated loops of large or small intestine. Pelvis: Unremarkable. Bones: Unremarkable for age. IMPRESSION: Unremarkable abdomen and pelvis CT. No nephrolithiasis or hydronephrosis. No dilated bowel or localized inflammation. Please note that all CT scans at this facility use dose modulation, iterative reconstruction, and/or weight-based dosing when appropriate to reduce radiation dose to as low as reasonably achievable. Dictated by Gilberto Busby MD @ 02/12/2021 6:35:23 AM (Electronically Signed)
[2021-02-12 06:39] LABS: BLOOD UREA NITROGEN,BUN 13 mg/dL (7.0-18.0); CARBON DIOXIDE,CO2 26.3 mmol/L (21.0-32.0); CHLORIDE,CL 101 mmol/L (98-107); GLUCOSE RANDOM 137 mg/dL (74-106); LIPASE 40 U/L (73-393); POTASSIUM,K 4.1 mmol/L (3.5-5.1); SODIUM,NA 138 mmol/L (136-145)
[2021-02-12] MEDS ORDERED: fentaNYL 50 MCG/ML SDV IVPUSH ONE (06:51)
[2021-02-12] MEDS ORDERED: Lactated Ringers 1,000 ML IV ONE (06:51)
[2021-02-12 07:04] LABS: CORONAVIRUS COVID-19 NAA NEGATIVE (NEGATIVE); INFLUENZA A NAA NEGATIVE (NEGATIVE); INFLUENZA B NAA NEGATIVE (NEGATIVE)
[2021-02-12] MEDS ORDERED: Promethazine 12.5 MG Supp RECTAL ONE (08:42)
[2021-02-12] MEDS ORDERED: Ondansetron 4 MG Tab.DIS PO ONE ×2 (11:00)
[2021-02-12 19:53] VITALS: BP 127/64; PULSE 58
== END 2021-02-12 11:29 | disposition home or self-care (01) ==
LOC: MW.ED 04:44
DX: R11.2 Nausea with vomiting, unspecified (principal); Z20.822 Contact with and (suspected) exposure to COVID-19
CPT/HCPCS: 0240U; 36415; 74176; 80053; 80307; 81001; 81025; 83690; 85025; 96374; 99284; A9270; J2405; J7030; J7120

== ENCOUNTER 2021-03-12 09:53 | Emergency (ER) | payer MEDICAID ==
[2021-03-12] MEDS ORDERED: Sodium Chloride 0.9% 1,000 ML IV ONE (10:25)
[2021-03-12] MEDS ORDERED: Ondansetron 4 MG/2 ML SDV IVPUSH ONE (10:25)
[2021-03-12] MEDS ORDERED: Sodium Chloride 0.9% 2.5 ML Syringe FLUSH PRN (10:25)
[2021-03-12] MEDS: Sodium Chloride 0.9% 10 ML Syringe FLUSH PRN ×2 (10:31→11:02)
[2021-03-12] MEDS ORDERED: diphenhydrAMINE 50 MG/ML SDV IVPUSH ONE (10:56)
[2021-03-12] MEDS ORDERED: Metoclopramide 10 MG/2 ML SDV IV ONE (10:56)
[2021-03-12 11:16] LABS: BLOOD UREA NITROGEN,BUN 8 mg/dL (7.0-18.0); CARBON DIOXIDE,CO2 24.6 mmol/L (21.0-32.0); CHLORIDE,CL 105 mmol/L (98-107); GLUCOSE RANDOM 146 mg/dL (74-106); LIPASE 33 U/L (73-393); POTASSIUM,K 3.9 mmol/L (3.5-5.1); SODIUM,NA 141 mmol/L (136-145)
[2021-03-12] MEDS ORDERED: Promethazine 25 MG/ML SDV IM ONE (12:03)
[2021-03-12 13:59] VITALS: BP 130/80; PULSE 59
== END 2021-03-12 14:00 | disposition home or self-care (01) ==
LOC: MW.ED 09:53
DX: R11.2 Nausea with vomiting, unspecified (principal); J45.909 Unspecified asthma, uncomplicated
CPT/HCPCS: 36415; 80053; 83690; 84484; 84703; 85025; 93005; 96372; 96374; 96375; 99284; J1200; J2405; J2550; J2765; J7030

== ENCOUNTER 2021-04-15 17:41 | Emergency (ER) | payer MEDICAID ==
[2021-04-15] MEDS ORDERED: Ondansetron 4 MG/2 ML SDV IVPUSH ONE (18:11)
[2021-04-15] MEDS ORDERED: Sodium Chloride 0.9% 1,000 ML IV ONE (18:11)
[2021-04-15] MEDS ORDERED: Promethazine 25 MG/ML SDV IM ONE (18:18)
[2021-04-15 18:42] LABS: BLOOD UREA NITROGEN,BUN 5 mg/dL (7.0-18.0); CARBON DIOXIDE,CO2 27.7 mmol/L (21.0-32.0); CHLORIDE,CL 101 mmol/L (98-107); GLUCOSE RANDOM 116 mg/dL (74-106); LIPASE 43 U/L (73-393); POTASSIUM,K 3.7 mmol/L (3.5-5.1); SODIUM,NA 137 mmol/L (136-145)
[2021-04-15] MEDS ORDERED: Iopamidol 755 MG/ML 500 ML Multipack Bottle IVPUSH ONE (19:14)
[2021-04-15 20:41] VITALS: BP 114/71; PULSE 75
== END 2021-04-15 20:00 | disposition home or self-care (01) ==
LOC: MW.ED 17:41
DX: K52.9 Noninfective gastroenteritis and colitis, unspecified (principal)
CPT/HCPCS: 36415; 74177; 80053; 80307; 81001; 83690; 85025; 96372; 96374; 99284; J2405; J2550; J7030; Q9967; 99283

== ENCOUNTER 2021-04-17 04:33 | Emergency (ER) | payer MEDICAID ==
[2021-04-17] MEDS ORDERED: Alum Hydro/Mag Hydro/Simeth XS 15 ML, Lidocaine 2% 5 ML PO ONE ×2 (04:51)
[2021-04-17] MEDS ORDERED: Pantoprazole 40 MG Tab.CR PO STA (04:57)
[2021-04-17] MEDS ORDERED: Ondansetron 4 MG Tab.DIS PO ONE (04:57)
[2021-04-17 06:19] VITALS: BP 135/88; PULSE 60
== END 2021-04-17 06:23 | disposition home or self-care (01) ==
LOC: MW.ED 04:33
DX: K21.9 Gastro-esophageal reflux disease without esophagitis (principal); J45.909 Unspecified asthma, uncomplicated; Z79.899 Other long term (current) drug therapy; Z72.0 Tobacco use
CPT/HCPCS: 36415; 80307; 99284; A9270

== ENCOUNTER 2021-06-24 09:36 | Observation (INO) | payer MEDICAID ==
[2021-06-24] MEDS ORDERED: Ondansetron 4 MG/2 ML SDV IVPUSH STA (09:48)
[2021-06-24] MEDS ORDERED: Ondansetron 4 MG/2 ML SDV IVPUSH ONE (09:52)
[2021-06-24] MEDS ORDERED: Sodium Chloride 0.9% 1,000 ML IV ONE ×3 (09:52→17:00)
[2021-06-24] MEDS ORDERED: Sodium Chloride 0.9% 2.5 ML Syringe FLUSH PRN (09:52)
[2021-06-24] MEDS ORDERED: Sodium Chloride 0.9% 10 ML Syringe FLUSH PRN (09:52)
[2021-06-24] MEDS ORDERED: LORazepam 2 MG/ML SDV IVPUSH STA (10:06)
[2021-06-24 10:24] LABS: BLOOD UREA NITROGEN,BUN 11 mg/dL (7.0-18.0); CARBON DIOXIDE,CO2 26.9 mmol/L (21.0-32.0); CHLORIDE,CL 102 mmol/L (98-107); GLUCOSE RANDOM 104 mg/dL (74-106); LIPASE 91 U/L (73-393); POTASSIUM,K 4.4 mmol/L (3.5-5.1); SODIUM,NA 139 mmol/L (136-145)
[2021-06-24] MEDS ORDERED: Promethazine 25 MG/ML SDV IM ONE (12:07)
[2021-06-24 15:56] LABS: CORONAVIRUS COVID-19 NAA NEGATIVE (NEGATIVE); INFLUENZA A NAA NEGATIVE (NEGATIVE); INFLUENZA B NAA NEGATIVE (NEGATIVE)
[2021-06-24] MEDS ORDERED: Docusate Sodium 100 MG Cap PO PRN (16:29)
[2021-06-24] MEDS ORDERED: Albuterol/Ipratropium 3.0-0.5 MG/3 ML Neb Soln NEB PRN (16:29)
[2021-06-24] MEDS ORDERED: Acetaminophen 325 MG Tab PO PRN (16:29)
[2021-06-24] MEDS ORDERED: Enoxaparin 40 MG/0.4 ML Syringe SUBCUT SCH (16:30)
[2021-06-24] MEDS ORDERED: Non-Formulary Medication 1 Each (Albuterol Sulfate 8.5 GM Hfa.Aer.Ad) INH PRN (16:41)
[2021-06-24] MEDS ORDERED: Promethazine 25 MG Tab PO PRN (16:50)
[2021-06-24] MEDS ORDERED: Iopamidol 755 MG/ML 500 ML Multipack Bottle IVPUSH ONE (17:17)
[2021-06-24] MEDS ORDERED: Promethazine 25 MG/ML SDV IM PRN (19:00)
[2021-06-24] MEDS: Sodium Chloride 0.9% 1,000 ML IV SCH (19:34)
[2021-06-24] MEDS: Ondansetron 4 MG Tab.DIS PO PRN (19:43)
[2021-06-25] MEDS: Sodium Chloride 0.9% 1,000 ML IV SCH (03:42)
[2021-06-25] MEDS: Ondansetron 4 MG Tab.DIS PO PRN (05:32)
[2021-06-25 06:32] LABS: BLOOD UREA NITROGEN,BUN 6 mg/dL (7.0-18.0); CARBON DIOXIDE,CO2 20.5 mmol/L (21.0-32.0); CHLORIDE,CL 99 mmol/L (98-107); GLUCOSE RANDOM 110 mg/dL (74-106); POTASSIUM,K 3.5 mmol/L (3.5-5.1); SODIUM,NA 134 mmol/L (136-145)
[2021-06-25] MEDS ORDERED: Albuterol 8 GM Inhaler INH PRN (08:49)
[2021-06-25] MEDS ORDERED: Omeprazole 20 MG Cap.CR PO SCH (09:00)
[2021-06-25] MEDS ORDERED: Non-Formulary Medication 1 Each (Omeprazole [Omeprazole] 40 MG Capsule.Dr) PO SCH (09:00)
[2021-06-25 09:05] VITALS: BP 133/80; PULSE 54
[2021-06-25] MEDS ORDERED: Calcium Carbonate 500 MG Tab.Chew PO ONE (09:30)
== END 2021-06-25 11:20 | disposition home or self-care (01) ==
LOC: MW.ED 09:36 → MW.MS 15:00
PROVIDERS: ADMIT Internal Medicine; ATTEND Internal Medicine
DX: R11.15 Cyclical vomiting syndrome unrelated to migraine (principal); R00.1 Bradycardia, unspecified; J45.909 Unspecified asthma, uncomplicated; H54.62 Unqualified visual loss, left eye, normal vision right eye; G30.9 Alzheimer's disease, unspecified; F02.80 Dementia in other diseases classified elsewhere, unspecified severity, without behavioral disturbance, psychotic disturbance, mood disturbance, and anxiety; F41.9 Anxiety disorder, unspecified; F32.A Depression, unspecified; Z20.822 Contact with and (suspected) exposure to COVID-19
CPT/HCPCS: 0240U; 36415; 74177; 80053; 80305; 81001; 81025; 83690; 83735; 85025; 87086; 93005; A9270; J1650; J2060; J2405; J2550; J3490; J7030; Q9967; 96361; 96366; 96372; 96374; 96375; 99285-25; G0378

== ENCOUNTER 2021-08-05 11:24 | Emergency (ER) | payer MEDICAID ==
[2021-08-05 19:29] VITALS: BP 103/69; PULSE 72
== END 2021-08-05 15:05 | disposition home or self-care (01) ==
LOC: MW.ED 11:24
DX: S83.411A Sprain of medial collateral ligament of right knee, initial encounter (principal); X50.1XXA Overexertion from prolonged static or awkward postures, initial encounter; Z79.899 Other long term (current) drug therapy; K21.9 Gastro-esophageal reflux disease without esophagitis
CPT/HCPCS: 73562-26-RT; 73562-RT; 99282; 99283-25

== ENCOUNTER 2021-09-16 10:04 | Emergency (ER) | payer MEDICAID ==
[2021-09-16 10:49] VITALS: BP 107/75; PULSE 57
== END 2021-09-16 11:52 | disposition home or self-care (01) ==
LOC: MW.ED 10:04
DX: Z20.822 Contact with and (suspected) exposure to COVID-19 (principal); K21.9 Gastro-esophageal reflux disease without esophagitis; F17.210 Nicotine dependence, cigarettes, uncomplicated; Z79.899 Other long term (current) drug therapy
CPT/HCPCS: 99283; U0002

== ENCOUNTER 2021-10-13 00:51 | Emergency (ER) | payer MEDICAID ==
[2021-10-13] MEDS ORDERED: diphenhydrAMINE 50 MG/ML SDV IVPUSH ONE ×2 (01:11→03:42)
[2021-10-13] MEDS ORDERED: Haloperidol Lactate 5 MG/ML SDV IM STA ×2 (01:11→03:42)
[2021-10-13] MEDS ORDERED: Dextrose 5%-Lactated Ringers 1,000 ML IV STA ×2 (01:11→03:26)
[2021-10-13] MEDS ORDERED: Calcium Gluconate 10% 1 GM/10 ML SDV IV STA (01:15)
[2021-10-13] MEDS ORDERED: Magnesium Sulfate/Water 2 GM in Premix Bag 1 BAG IV ONE (01:15)
[2021-10-13] MEDS ORDERED: Pantoprazole 80 MG in Sodium Chloride 0.9% 10 ML IVPUSH ONE (01:30)
[2021-10-13] MEDS ORDERED: Lactated Ringers 1,000 ML IV STA (01:31)
[2021-10-13 02:28] LABS: BLOOD UREA NITROGEN,BUN 16 mg/dL (7.0-18.0); CARBON DIOXIDE,CO2 25.1 mmol/L (21.0-32.0); CHLORIDE,CL 104 mmol/L (98-107); GLUCOSE RANDOM 139 mg/dL (74-106); LIPASE 49 U/L (73-393); POTASSIUM,K 3.6 mmol/L (3.5-5.1); SODIUM,NA 141 mmol/L (136-145)
[2021-10-13 02:29] LABS: ESTIMATED GFR 61 mL/min (>60)
[2021-10-13 03:49] VITALS: PULSE 36
[2021-10-13 05:49] VITALS: BP 112/68
== END 2021-10-13 05:49 | disposition home or self-care (01) ==
LOC: MW.ED 00:51
DX: R11.10 Vomiting, unspecified (principal); R10.9 Unspecified abdominal pain; R00.1 Bradycardia, unspecified; Z20.822 Contact with and (suspected) exposure to COVID-19
CPT/HCPCS: 36415; 80053; 80305; 80307; 81001; 81025; 83690; 85025; 87086; 87635; 93005; 96365; 96366; 96372; 96375; 99284; C9113; J0610; J1200; J1630; J3475; J3490; J7120; J7121; U0002

== ENCOUNTER 2021-12-30 08:09 | Emergency (ER) | payer MEDICAID ==
[2021-12-30] MEDS ORDERED: Gabapentin 100 MG Cap PO ONE (08:27)
[2021-12-30] MEDS ORDERED: Ketorolac 30 MG/ML SDV IM ONE (08:27)
[2021-12-30 10:22] VITALS: BP 114/76; PULSE 54
== END 2021-12-30 10:21 | disposition home or self-care (01) ==
LOC: MW.ED 08:09
DX: G56.02 Carpal tunnel syndrome, left upper limb (principal); J45.909 Unspecified asthma, uncomplicated; K21.9 Gastro-esophageal reflux disease without esophagitis; Z79.899 Other long term (current) drug therapy
CPT/HCPCS: 96372; 99283; A9270; J1885

== ENCOUNTER 2022-01-26 14:48 | Emergency (ER) | payer MEDICAID ==
[2022-01-26] MEDS ORDERED: Ketorolac 30 MG/ML SDV IVPUSH ONE (15:15)
[2022-01-26] MEDS ORDERED: Ondansetron 4 MG/2 ML SDV IVPUSH ONE (15:15)
[2022-01-26] MEDS ORDERED: Sodium Chloride 0.9% 1,000 ML IV ONE (15:15)
[2022-01-26 15:44] LABS: CARBON DIOXIDE,CO2 23.7 mmol/L (21.0-32.0); POTASSIUM,K 4.6 mmol/L (3.5-5.1)
[2022-01-26 16:43] VITALS: BP 122/83; PULSE 83
[2022-01-26 17:28] LABS: CORONAVIRUS COVID-19 NAA NEGATIVE (NEGATIVE); INFLUENZA A NAA NEGATIVE (NEGATIVE); INFLUENZA B NAA NEGATIVE (NEGATIVE)
== END 2022-01-26 16:43 | disposition home or self-care (01) ==
LOC: MW.ED 14:48
DX: R07.89 Other chest pain (principal); Z79.899 Other long term (current) drug therapy; Z20.822 Contact with and (suspected) exposure to COVID-19
CPT/HCPCS: 0240U; 36415; 71045; 80053; 84484; 85025; 93005; 96361; 96374; 96375; 99285; J1885; J2405; J7030

== ENCOUNTER 2022-07-13 23:53 | Observation (INO) | payer MEDICAID ==
[2022-07-13] MEDS ORDERED: Famotidine 20 MG/2 ML SDV IVPUSH ONE (23:58)
[2022-07-13] MEDS ORDERED: Sodium Chloride 0.9% 1,000 ML IV ONE (23:58)
[2022-07-13] MEDS ORDERED: Ondansetron 4 MG/2 ML SDV IVPUSH ONE (23:58)
[2022-07-14] MEDS ORDERED: Morphine 4 MG/ML Syringe IVPUSH ONE (00:05)
[2022-07-14 00:30] LABS: BILIRUBIN,URINE NEGATIVE (NEGATIVE); COLOR,URINE YELLOW; GLUCOSE,URINE 250 mg/dL (NEGATIVE); KETONES,URINE 40 mg/dL (NEGATIVE); LEUKOCYTE ESTERASE,URINE NEGATIVE (NEGATIVE); NITRITE,URINE NEGATIVE (NEGATIVE); OCCULT BLOOD,URINE MODERATE (NEGATIVE); PROTEIN,URINE NEGATIVE (NEGATIVE); UROBILINOGEN,URINE 0.2 EU/dL (<2.0)
[2022-07-14 00:32] LABS: BASOPHILS PERCENT AUTO 0.1 % (0.0-1.5); HEMATOCRIT 44.2 % (36.0-46.0); HEMOGLOBIN 15.4 g/dL (12.0-16.0); LYMPHOCYTES ABSOLUTE AUTO 0.9 K/uL (0.6-2.4); LYMPHOCYTES PERCENT AUTO 8.5 % (16.0-40.0); MEAN CORPUSCULAR HEMOGLOBIN 29.9 pg (27.0-32.0); MEAN CORPUSCULAR HGB CONC 34.8 g/dL (31.0-37.0); MEAN CORPUSCULAR VOLUME 85.8 fL (80.0-98.0); MONOCYTES ABSOLUTE AUTO 0.4 K/uL (0.0-0.8); MONOCYTES PERCENT AUTO 3.3 % (0.0-15.0); NEUTROPHILS ABSOLUTE AUTO 9.8 K/uL (1.4-5.7); NEUTROPHILS PERCENT AUTO 88.1 % (48.0-80.0); NRBC ABSOLUTE 0 K/uL; PLATELET COUNT,PLT 309 K/uL (150-400); RED BLOOD CELL COUNT 5.15 M/uL (4.30-5.90); WHITE BLOOD CELL COUNT,WBC 11.11 K/uL (4.0-11.0)
[2022-07-14 00:34] LABS: APPEARANCE,URINE HAZY
[2022-07-14 00:40] LABS: AMPHETAMINES SCREEN, URINE NEGATIVE (CUTOFF=500); BARBITURATE SCREEN,URINE NEGATIVE (CUTOFF=200); BENZODIAZEPINES SCREEN,URINE NEGATIVE (CUTOFF=150); BUPRENORPHINE SCREEN,URINE NEGATIVE (CUTOFF=10); METHADONE SCREEN, URINE NEGATIVE (CUTOFF=200); METHAMPHETAMINES SCREEN, URINE NEGATIVE (CUTOFF=500); OXYCODONE SCREEN,URINE NEGATIVE (CUT0FF=100); PCP SCREEN,URINE NEGATIVE (CUTOFF=25); PROPOXYPHENE SCREEN,URINE NEGATIVE (CUTOFF=300); THC SCREEN,URINE 20 NG/ML PRESUMPTIVE POSITIVE (CUTOFF=50)
[2022-07-14 00:42] LABS: BACTERIA,URINE FEW (NEGATIVE); EPITHELIAL CELLS,URINE MODERATE (NONE-FEW); MUCUS,URINE LIGHT (NONE-MOD)
[2022-07-14 01:10] LABS: A/G RATIO 1.1 (0.9-1.6); ALANINE AMINOTRANSFERASE,ALT 38 IU/L (14-63); ALBUMIN 3.6 g/dL (3.4-5.0); ALKALINE PHOSPHATASE 90 U/L (46-116); ASPARTATE AMNIOTRANSFERASE,AST 28 IU/L (15-37); BILIRUBIN TOTAL 0.4 mg/dL (0.2-1.0); BLOOD UREA NITROGEN,BUN 8 mg/dL (7.0-18.0); CALCIUM 8.3 mg/dL (8.5-10.1); CARBON DIOXIDE,CO2 24.9 mmol/L (21.0-32.0); CHLORIDE,CL 98 mmol/L (98-107); CREATININE 0.8 mg/dL (0.6-1.0); EST CRCL DRUG DOSING (CG) 72.65 mL/min; GLUCOSE RANDOM 125 mg/dL (74-106); LIPASE 35 U/L (73-393); MAGNESIUM 1.5 mg/dL (1.8-2.4); POTASSIUM,K 3.9 mmol/L (3.5-5.1); SODIUM,NA 134 mmol/L (136-145)
[2022-07-14 01:12] LABS: ESTIMATED GFR 90 mL/min (>60); ETHANOL BLOOD MEDICAL < 3.0 mg/dL
[2022-07-14 01:13] LABS: LACTIC ACID 1.5 mmol/L (0.4-2.0)
[2022-07-14] MEDS ORDERED: Dextrose 5%-Lactated Ringers 1,000 ML IV SCH (01:15)
[2022-07-14] MEDS ORDERED: Iopamidol 755 MG/ML 500 ML Multipack Bottle IVPUSH ONE (01:22)
[2022-07-14] MEDS ORDERED: Piperacillin/Tazobactam 4.5 GM in Sodium Chloride 0.9% 100 ML IV ONE (02:19)
[2022-07-14] MEDS ORDERED: Sodium Chloride 0.9% 1,000 ML IV SCH (03:30)
[2022-07-14] MEDS ORDERED: Ondansetron 4 MG/2 ML SDV IVPUSH PRN (03:39)
[2022-07-14 05:55] LABS: BASOPHILS PERCENT AUTO 0.1 % (0.0-1.5); HEMATOCRIT 41.6 % (36.0-46.0); HEMOGLOBIN 14.4 g/dL (12.0-16.0); LYMPHOCYTES ABSOLUTE AUTO 0.9 K/uL (0.6-2.4); LYMPHOCYTES PERCENT AUTO 6.7 % (16.0-40.0); MEAN CORPUSCULAR HEMOGLOBIN 29.8 pg (27.0-32.0); MEAN CORPUSCULAR HGB CONC 34.6 g/dL (31.0-37.0); MEAN CORPUSCULAR VOLUME 86.1 fL (80.0-98.0); MONOCYTES PERCENT AUTO 7.4 % (0.0-15.0); NEUTROPHILS ABSOLUTE AUTO 11.5 K/uL (1.4-5.7); NEUTROPHILS PERCENT AUTO 85.8 % (48.0-80.0); NRBC ABSOLUTE 0 K/uL; PLATELET COUNT,PLT 309 K/uL (150-400); RED BLOOD CELL COUNT 4.83 M/uL (4.30-5.90); WHITE BLOOD CELL COUNT,WBC 13.33 K/uL (4.0-11.0)
[2022-07-14 06:22] LABS: ALBUMIN 3.3 g/dL (3.4-5.0); BILIRUBIN TOTAL 0.4 mg/dL (0.2-1.0); CALCIUM 8.1 mg/dL (8.5-10.1); CARBON DIOXIDE,CO2 26.2 mmol/L (21.0-32.0); CREATININE 0.8 mg/dL (0.6-1.0); EST CRCL DRUG DOSING (CG) 72.65 mL/min; POTASSIUM,K 3.5 mmol/L (3.5-5.1); PROTEIN TOTAL,TP 7.2 g/dL (6.4-8.2)
[2022-07-14 06:24] LABS: A/G RATIO 0.9 (0.9-1.6)
[2022-07-14] MEDS ORDERED: Piperacillin/Tazobactam 3.375 GM in Sodium Chloride 0.9% 100 ML IV SCH (10:00)
[2022-07-14 13:26] VITALS: BP 118/78; PULSE 67
== END 2022-07-14 13:10 | disposition home or self-care (01) ==
LOC: MW.ED 23:53 → MW.MS 07-14 02:10
PROVIDERS: ADMIT Internal Medicine; ATTEND Internal Medicine
DX: R10.12 Left upper quadrant pain (principal); K52.9 Noninfective gastroenteritis and colitis, unspecified; R11.10 Vomiting, unspecified; K21.9 Gastro-esophageal reflux disease without esophagitis; F17.210 Nicotine dependence, cigarettes, uncomplicated; J45.909 Unspecified asthma, uncomplicated; Z79.899 Other long term (current) drug therapy; Z98.890 Other specified postprocedural states
CPT/HCPCS: 36415; 74177; 76705; 80053; 80305; 80307; 81001; 83605; 83690; 83735; 84703; 85025; J2270; J2405; J2543; J3490; J7030; J7121; Q9967; 93005; 93010; 96361; 96365; 96374; 96375; 96376; 99234; 99284; 99285-25; G0378

== ENCOUNTER 2022-08-03 14:23 | Emergency (ER) | payer MEDICAID ==
[2022-08-03] MEDS ORDERED: Ibuprofen 600 MG Tab PO ONE (15:05)
[2022-08-03 16:54] VITALS: BP 117/83; PULSE 72
== END 2022-08-03 16:54 | disposition home or self-care (01) ==
LOC: MW.ED 14:23
DX: S69.92XA Unspecified injury of left wrist, hand and finger(s), initial encounter (principal); J45.909 Unspecified asthma, uncomplicated; Z72.0 Tobacco use
CPT/HCPCS: 73130; 99283; A9270

== ENCOUNTER 2022-08-20 01:34 | Emergency (ER) | payer MEDICAID ==
[2022-08-20] MEDS ORDERED: Sodium Chloride 0.9% 1,000 ML IV ONE (01:52)
[2022-08-20] MEDS ORDERED: droPERidol 5 MG/2 ML SDV IVPUSH ONE (01:56)
[2022-08-20 01:58] LABS: BASOPHILS PERCENT AUTO 0.2 % (0.0-1.5); EOSINOPHILS ABSOLUTE AUTO 0.2 K/uL (0.0-0.7); EOSINOPHILS PERCENT AUTO 1.2 % (0.0-7.0); HEMATOCRIT 40.3 % (36.0-46.0); HEMOGLOBIN 13.5 g/dL (12.0-16.0); LYMPHOCYTES ABSOLUTE AUTO 3.8 K/uL (0.6-2.4); LYMPHOCYTES PERCENT AUTO 30.4 % (16.0-40.0); MEAN CORPUSCULAR HGB CONC 33.5 g/dL (31.0-37.0); MEAN CORPUSCULAR VOLUME 89.6 fL (80.0-98.0); MONOCYTES ABSOLUTE AUTO 1.4 K/uL (0.0-0.8); MONOCYTES PERCENT AUTO 10.9 % (0.0-15.0); NEUTROPHILS ABSOLUTE AUTO 7.2 K/uL (1.4-5.7); NEUTROPHILS PERCENT AUTO 57.3 % (48.0-80.0); PLATELET COUNT,PLT 281 K/uL (150-400); WHITE BLOOD CELL COUNT,WBC 12.52 K/uL (4.0-11.0)
[2022-08-20 02:14] LABS: A/G RATIO 0.9 (0.9-1.6); ALANINE AMINOTRANSFERASE,ALT 21 IU/L (14-63); ALBUMIN 3.4 g/dL (3.4-5.0); ALKALINE PHOSPHATASE 74 U/L (46-116); ASPARTATE AMNIOTRANSFERASE,AST 22 IU/L (15-37); BILIRUBIN TOTAL 0.3 mg/dL (0.2-1.0); BLOOD UREA NITROGEN,BUN 15 mg/dL (7.0-18.0); CALCIUM 8.7 mg/dL (8.5-10.1); CARBON DIOXIDE,CO2 22.5 mmol/L (21.0-32.0); CHLORIDE,CL 103 mmol/L (98-107); EST CRCL DRUG DOSING (CG) 58.12 mL/min; GLUCOSE RANDOM 124 mg/dL (74-106); LIPASE 66 U/L (73-393); MAGNESIUM 1.9 mg/dL (1.8-2.4); POTASSIUM,K 3.8 mmol/L (3.5-5.1); SODIUM,NA 137 mmol/L (136-145)
[2022-08-20 02:15] LABS: ESTIMATED GFR 69 mL/min (>60); ETHANOL BLOOD MEDICAL < 3.0 mg/dL
[2022-08-20 02:20] LABS: APPEARANCE,URINE CLEAR; BILIRUBIN,URINE NEGATIVE (NEGATIVE); COLOR,URINE YELLOW; GLUCOSE,URINE NEGATIVE (NEGATIVE); KETONES,URINE NEGATIVE (NEGATIVE); LEUKOCYTE ESTERASE,URINE NEGATIVE (NEGATIVE); NITRITE,URINE NEGATIVE (NEGATIVE); OCCULT BLOOD,URINE SMALL (NEGATIVE); PROTEIN,URINE NEGATIVE (NEGATIVE); UROBILINOGEN,URINE 0.2 EU/dL (<2.0)
[2022-08-20 02:28] LABS: AMORPHOUS SEDIMENT,URINE MODERATE (NEGATIVE); BACTERIA,URINE FEW (NEGATIVE); EPITHELIAL CELLS,URINE FEW (NONE-FEW); RBC,URINE 0-1 (0-2/HPF); WBC,URINE 0-1 (0-5/HPF)
[2022-08-20 02:29] LABS: AMPHETAMINES SCREEN, URINE NEGATIVE (CUTOFF=500); BARBITURATE SCREEN,URINE NEGATIVE (CUTOFF=200); BENZODIAZEPINES SCREEN,URINE NEGATIVE (CUTOFF=150); BUPRENORPHINE SCREEN,URINE NEGATIVE (CUTOFF=10); METHADONE SCREEN, URINE NEGATIVE (CUTOFF=200); METHAMPHETAMINES SCREEN, URINE NEGATIVE (CUTOFF=500); OXYCODONE SCREEN,URINE NEGATIVE (CUT0FF=100); PCP SCREEN,URINE NEGATIVE (CUTOFF=25); PROPOXYPHENE SCREEN,URINE NEGATIVE (CUTOFF=300); THC SCREEN,URINE 20 NG/ML PRESUMPTIVE POSITIVE (CUTOFF=50)
[2022-08-20 04:38] VITALS: BP 110/87; PULSE 44
== END 2022-08-20 04:01 | disposition home or self-care (01) ==
LOC: MW.ED 01:34
DX: R11.2 Nausea with vomiting, unspecified (principal); R10.13 Epigastric pain; J45.909 Unspecified asthma, uncomplicated
CPT/HCPCS: 36415; 80053; 80305; 80307; 81001; 83690; 83735; 85025; 93005; 96361; 96374; 99284; J1790; J7030; 93010

== ENCOUNTER 2022-10-07 00:53 | Emergency (ER) | payer MEDICAID ==
[2022-10-07] MEDS ORDERED: Ondansetron 4 MG/2 ML SDV IVPUSH ONE (01:22)
[2022-10-07] MEDS ORDERED: Sodium Chloride 0.9% 10 ML Syringe FLUSH PRN (01:22)
[2022-10-07] MEDS ORDERED: Sodium Chloride 0.9% 2.5 ML Syringe FLUSH PRN (01:22)
[2022-10-07] MEDS ORDERED: Sodium Chloride 0.9% 1,000 ML IV ONE (01:22)
[2022-10-07] MEDS ORDERED: Dicyclomine 10 MG Cap PO ONE (01:25)
[2022-10-07 01:48] LABS: BASOPHILS PERCENT AUTO 0.1 % (0.0-1.5); HEMATOCRIT 43.1 % (36.0-46.0); HEMOGLOBIN 14.8 g/dL (12.0-16.0); LYMPHOCYTES ABSOLUTE AUTO 0.9 K/uL (0.6-2.4); LYMPHOCYTES PERCENT AUTO 10.2 % (16.0-40.0); MEAN CORPUSCULAR HEMOGLOBIN 30.5 pg (27.0-32.0); MEAN CORPUSCULAR HGB CONC 34.3 g/dL (31.0-37.0); MEAN CORPUSCULAR VOLUME 88.7 fL (80.0-98.0); MONOCYTES ABSOLUTE AUTO 0.4 K/uL (0.0-0.8); MONOCYTES PERCENT AUTO 4.7 % (0.0-15.0); NEUTROPHILS ABSOLUTE AUTO 7.4 K/uL (1.4-5.7); NRBC ABSOLUTE 0 K/uL; PLATELET COUNT,PLT 330 K/uL (150-400); RED BLOOD CELL COUNT 4.86 M/uL (4.30-5.90); WHITE BLOOD CELL COUNT,WBC 8.73 K/uL (4.0-11.0)
[2022-10-07 02:13] LABS: ALBUMIN 3.9 g/dL (3.4-5.0); BILIRUBIN TOTAL 0.2 mg/dL (0.2-1.0); CALCIUM 8.8 mg/dL (8.5-10.1); CARBON DIOXIDE,CO2 28.4 mmol/L (21.0-32.0); CREATININE 0.9 mg/dL (0.6-1.0); EST CRCL DRUG DOSING (CG) 63.86 mL/min; PROTEIN TOTAL,TP 7.7 g/dL (6.4-8.2)
[2022-10-07] MEDS ORDERED: Famotidine 20 MG/2 ML SDV IVPUSH ONE (02:57)
[2022-10-07] MEDS ORDERED: Sucralfate Suspension 1 GM/10 ML Cup PO ONE (02:57)
[2022-10-07 04:37] VITALS: BP 140/88; PULSE 55
== END 2022-10-07 04:36 | disposition home or self-care (01) ==
LOC: MW.ED 00:53
DX: R10.12 Left upper quadrant pain (principal); R11.2 Nausea with vomiting, unspecified; R07.9 Chest pain, unspecified; J45.909 Unspecified asthma, uncomplicated; F17.210 Nicotine dependence, cigarettes, uncomplicated; Z20.822 Contact with and (suspected) exposure to COVID-19
CPT/HCPCS: 36415; 80053; 83690; 84484; 85025; 87635; 93005; 96361; 96374; 96375; 99284; A9270; J2405; J3490; J7030; 93010; U0002